=== PATIENT | female | born 1995 | race American Indian/Alaskan Native ===

== ENCOUNTER 2020-04-09 17:53 | Inpatient (IN) | payer MEDICAID, SELFPAY ==
[2020-04-09] MEDS ORDERED: cefTRIAXone/NS 2 GM/100 ML 2 GM/100 ML BAG IV SCH (18:12)
[2020-04-09] MEDS ORDERED: SODIUM CHLORIDE 0.9% 500 ML 500 ML IV ONE (18:12)
[2020-04-09 19:06] LABS: Basophils % (Auto) 0.3 % (0.0-1.8); Eosinophils % (Auto) 0.1 % (0.0-4.3); Hemoglobin 10.3 gm/dl (10.1-14.3); Lymphocytes % (Auto) 13.2 % (13.4-35.0); Mean Corpuscular HGB Conc 32 % (30-34); Mean Corpuscular Volume 81 fl (79-97); Monocytes # (Auto) 0.5 K/mm3 (0.0-0.8); Monocytes % (Auto) 5.9 % (0.0-7.3); Platelet Count 223 K/mm3 (140-440); Red Blood Count 3.95 M/mm3 (3.65-5.03); Red Cell Distribution Width 14.6 % (13.2-15.2)
[2020-04-09 19:09] LABS: Alanine Aminotransferase 15 units/L (7-56); Albumin 3.1 g/dL (3.9-5); Blood Urea Nitrogen 5 mg/dL (7-17); Calcium 8.6 mg/dL (8.4-10.2); Hemolysis Index 0
[2020-04-09 19:10] LABS: C-Reactive Protein 5.3 mg/dL (0.00-1.30)
[2020-04-09 19:17] LABS: BUN/Creatinine Ratio 8
--- NOTE | 2020-04-09 19:20 | XRay Report ---
CHEST 1 VIEW 6:32 PM INDICATION / CLINICAL INFORMATION: Cough and shortness of breath. COMPARISON: None available. FINDINGS: SUPPORT DEVICES: None. HEART / MEDIASTINUM: The heart size and pulmonary vasculature are normal. LUNGS / PLEURA: There is mild patchy parenchymal disease in the left perihilar region and both lower lung zones medially. No significant pleural effusion. No pneumothorax. ADDITIONAL FINDINGS: No significant additional findings. IMPRESSION: Bilateral bronchopneumonia, more likely related to bacterial causes or aspiration than at ypical causes. Signer Name: Raciel Bacon MD Signed: 04/09/2020 7:15 PM Workstation Name: [id number]
--- NOTE | 2020-04-09 20:32 | Emergency Department Report ---
- General Chief Complaint: Dyspnea/Respdistress Stated Complaint: SHORTNESS OF BREATH Time Seen by Provider: 04/09/20 18:04 Source: EMS Mode of arrival: Stretcher Limitations: Physical Limitation - History of Present Illness Initial Comments: Patient is a 25-year-old F Bangladeshi female who has a past medical history of asthma and is currently 33 weeks who is presenting with shortness of breath and cough. Patient states she has had cough that is productive of yellow sputum and shortness of breath especially with exertion. She has decreased sense of taste and smell and body aches as well. She denies nausea vomiting diarrhea. She is not sure she has been exposed to anyone who was tested positive for COVID-19. - Related Data Allergies Allergy/AdvReac Type Severity Reaction Status Date / Time No Known Allergies Allergy Verified 04/09/20 18:19 ED Review of Systems ROS: Stated complaint: SHORTNESS OF BREATH Other details as noted in HPI Comment: All other systems reviewed and negative ED Past Medical Hx - Social History Smoking Status: Never Smoker Substance Use Type: None ED Physical Exam - General Limitations: Physical Limitation General appearance: alert, in no apparent distress - Head Head exam: Present: atraumatic, normocephalic - Eye Eye exam: Present: normal appearance, PERRL, EOMI - ENT ENT exam: Present: mucous membranes moist - Neck Neck exam: Present: normal inspection - Respiratory Respiratory exam: Present: respiratory distress (resp ), rhonchi. Absent: normal lung sounds bilaterally, wheezes, rales - Cardiovascular Cardiovascular Exam: Present: regular rate, normal rhythm, normal heart sounds. Absent: systolic murmur, diastolic murmur, rubs, gallop - GI/Abdominal GI/Abdominal exam: Present: soft, normal bowel sounds. Absent: distended, tenderness, guarding, rebound - Extremities Exam Extremities exam: Present: normal inspection - Back Exam Back exam: Present: normal inspection - Neurological Exam Neurological exam: Present: alert, oriented X3 - Psychiatric Psychiatric exam: Present: normal affect, normal mood - Skin Skin exam: Present: warm, dry, intact, normal color. Absent: rash ED Course Vital Signs 04/09/20 04/09/20 04/09/20 18:15 18:24 18:45 Temperature 98.8 F Pulse Rate 112 H 99 H 131 H Respiratory 48 H 24 31 H Rate Blood Pressure 126/64 127/66 126/64 O2 Sat by Pulse 99 95 97 Oximetry 04/09/20 19:01 Temperature Pulse Rate 107 H Respiratory 23 Rate Blood Pressure 126/64 O2 Sat by Pulse 98 Oximetry ED Medical Decision Making - Lab Data Result diagrams: 04/09/20 18:23 04/09/20 18:23 - Radiology Data CHEST 1 VIEW 6:32 PM INDICATION / CLINICAL INFORMATION: Cough and shortness of breath. COMPARISON: None available. FINDINGS: SUPPORT DEVICES: None. HEART / MEDIASTINUM: The heart size and pulmonary vasculature are normal. LUNGS / PLEURA: There is mild patchy parenchymal disease in the left perihilar region and both lower lung zones medially. No significant pleural effusion. No pneumothorax. ADDITIONAL FINDINGS: No significant additional findings. IMPRESSION: Bilateral bronchopneumonia, more likely related to bacterial causes or aspiration than atypical causes. Signer Name: Raciel Bacon MD Signed: 04/09/2020 7:15 PM Workstation Name: [id number] - Medical Decision Making Patient is a 25-year-old F Bangladeshi female with asthma who is 33 weeks who has bilateral infiltrates. She received 2 neb treatments prior to arrival and is no longer wheezing but does have some rhonchi. Patient is remained on 2 L of oxygen and is maintaining O2 sats in the upper 90s. Patient was in the low 90s prior to the neb treatments and being started on oxygen. Patient will be [facility]. She goes to [facility]. Dr. Amador is on- call. Critical care attestation.: If time is entered above; I have spent that time in minutes in the direct care of this critically ill patient, excluding procedure time. ED Disposition Clinical Impression: Bilateral pneumonia, 33 weeks gestation of Disposition: OP ADMIT IP TO THIS HOSP Is pt being admited?: Yes Does the pt Need Aspirin: No Condition: Stable Instructions: Bacterial Pneumonia (ED) Time of Disposition: 20:36
[2020-04-09] MEDS ORDERED: SODIUM CHLORIDE NASAL SPRAY 44ML NS PRN (20:40)
[2020-04-09] MEDS ORDERED: ACETAMINOPHEN 325 MG TAB PO PRN (20:40)
[2020-04-09] MEDS ORDERED: ONDANSETRON 4 MG/2 ML INJ IV PRN (20:40)
[2020-04-09] MEDS ORDERED: DOCUSATE SODIUM 100 MG CAP PO PRN (20:40)
[2020-04-09] MEDS: cefTRIAXone/NS 2 GM/100 ML 2 GM/100 ML BAG IV SCH (21:15)
[2020-04-09] MEDS: AZITHROMYCIN 500 MG in SODIUM CHLORIDE 0.9% 250ML 250 ML IV SCH (23:19)
[2020-04-09] MEDS: LACTATED RINGERS 1,000 ML IV SCH (23:28)
--- NOTE | 2020-04-10 07:42 | History and Physical Report ---
History of Present Illness Date of examination: 04/10/20 Date of admission: 04/09/20 20:36 Chief complaint: cough, dyspnea, body aches, loss of smell for 2 days History of present illness: Pt is a 25 year old -[place] African female TRELL 05/20/20 at 34w2d pre sents with cough, loss of smell, body aches, and and shortness of breath for the past two days. She reports irregular contractions, and denies vaginal bleeding or leakage of fluid. She has had care at [facility] since 11 wks complicated by silent alpha thalassemia carrier status and asthma (reports no asthma attacks thus far this ). Her GBS status is unknown. Past History Past Medical History: asthma Past Surgical History: no surgical history Family/Genetic History: diabetes Social history: no significant social history - Obstetrical History Expected Date of Delivery: 05/20/20 Actual Gestation: 34 Week(s) 2 Day(s) : 3 Para: 1 Hx # Term Pregnancies: 1 Number of Pregnancies: 0 Spontaneous Abortions: 0 Induced : 1 Number of Living Children: 1 Medications and Allergies Allergies Allergy/AdvReac Type Severity Reaction Status Date / Time No Known Allergies Allergy Verified 04/09/20 18:19 Active Meds: Active Medications Acetaminophen (Tylenol) 650 mg PO Q4H PRN PRN Reason: Pain MILD(1-3)/Fever >100.5/FINK Docusate Sodium (Colace) 100 mg PO Q12H PRN PRN Reason: Constipation Guaifenesin (Guaifenesin Dm Syrup) 10 ml PO Q6H PRN PRN Reason: Cough Ceftriaxone Sodium (Rocephin/Ns 2 Gm/100 Ml) 2 gm in 100 mls @ 200 mls/hr IV Q24H [facility]; Protocol Last Admin: 04/09/20 21:15 Dose: 200 mls/hr Documented by: Lactated Ringer's (Lactated Ringers) 1,000 mls @ 125 mls/hr IV DIRECT [facility] Last Admin: 04/09/20 23:28 Dose: 125 mls/hr Documented by: Azithromycin 500 mg/ Sodium (Chloride) 250 mls @ 250 mls/hr IV Q24H [facility]; Protocol Last Admin: 04/09/20 23:19 Dose: 250 mls/hr Documented by: Multivitamins/Iron/Calcium ( Vitamin) 1 each PO QDAY MO Ondansetron HCl (Zofran) 4 mg IV Q6H PRN PRN Reason: Nausea And Vomiting Sodium Chloride (Deep Sea) 2 spray NS Q4H PRN PRN Reason: Congestion Review of Systems All systems: negative Constitutional: chills Cardiovascular: dyspnea on exertion Respiratory: cough - Vital Signs Vital signs: Vital Signs Pulse Resp BP Pulse Ox 112 H 48 H 126/64 99 04/09/20 18:15 04/09/20 18:15 04/09/20 18:15 04/09/20 18:15 Temp Pulse Resp BP Pulse Ox 98.4 F 97 H 38 H 124/56 96 04/10/20 02:30 04/10/20 07:39 04/09/20 22:22 04/09/20 22:22 04/10/20 07:39 - Physical Exam Breasts: Positive: deferred Lungs: Positive: Other (Coarse breath sounds in lung bases ) Abdomen: Positive: soft Uterus: Positive: enlarged (gravid ) Extremities: Positive: normal - Obstetrical FHR: auscultation normal Uterine Contraction Monitor Mode: External Uterine Contraction Pattern: Irregular Uterine Tone Measurement Phase: Resting Uterine Contraction Intensity: Mild Results Result Diagrams: 04/09/20 18:23 04/09/20 20:56 Abnormal lab results 04/09/20 04/09/20 04/09/20 Range/Units 18:23 18:23 18:23 MCH 26 L (28-32) pg Lymph % (Auto) 13.2 L (13.4-35.0) % Lymph # (Auto) 1.0 L (1.2-5.4) K/mm3 Seg Neutrophils % 80.5 H (40.0-70.0) % D-Dimer 896.32 H (0-234) ng/mlDDU Sodium 134 L (137-145) mmol/L Potassium 3.1 L (3.6-5.0) mmol/L Carbon Dioxide 17 L (22-30) mmol/L BUN 5 L (7-17) mg/dL Alkaline Phosphatase 180 H (35-129) units/L Lactate Dehydrogenase (91-180) units/L C-Reactive Protein (0.00-1.30) mg/dL Albumin 3.1 L (3.9-5) g/dL 04/09/20 04/09/20 04/09/20 Range/Units 18:23 20:56 20:56 MCH (28-32) pg Lymph % (Auto) (13.4-35.0) % Lymph # (Auto) (1.2-5.4) K/mm3 Seg Neutrophils % (40.0-70.0) % D-Dimer 792.89 H (0-234) ng/mlDDU Sodium (137-145) mmol/L Potassium (3.6-5.0) mmol/L Carbon Dioxide (22-30) mmol/L BUN (7-17) mg/dL Alkaline Phosphatase (35-129) units/L Lactate Dehydrogenase 244 H 224 H (91-180) units/L C-Reactive Protein 5.30 H 5.00 H (0.00-1.30) mg/dL Albumin (3.9-5) g/dL All other labs normal. Assessment and Plan A: IUP at 34w2d Bilateral low lobe pneumonia with anosmia- Suspected COVID 19 Asthma GBS unknown P: Admit to antepartum service Coronavirus test Supplemental oxygen to keep O2 sats above 95 percent ID consult Hospitalist consult
--- NOTE | 2020-04-10 08:15 | Event Note ---
Date: 04/10/20 Infectious Disease consult. On-call ID provider Dr Mercer recommends pulmonology consult and administration of Decadron and Remdesivir.
[2020-04-10] MEDS ORDERED: REMDESIVIR 200 MG in SODIUM CHLORIDE 0.9% 250ML 250 ML IV ONE (08:24)
[2020-04-10] MEDS ORDERED: REMDESIVIR 100 MG VIAL IV ONE (08:30)
[2020-04-10] MEDS ORDERED: dexAMETHasone 4 MG/ML VIAL IV ONE (08:59)
--- NOTE | 2020-04-10 09:38 | Ultrasound Report ---
ULTRASOUND OBSTETRIC LIMITED ULTRASOUND BIOPHYSICAL PROFILE INDICATION / CLINICAL INFORMATION: IUP at 33 wks, COVID PUI. COMPARISON: None available. FINDINGS: BREATHING MOVEMENT = 2 GROSS BODY MOVEMENT = 2 TONE = 2 QUALITATIVE AMNIOTIC FLUID VOLUME = 2 TOTAL BIOPHYSICAL SCORE = 8/8 AMNIOTIC FLUID INDEX (cm) = 12.9 HEART RATE (beats per minute): 159 ADDITIONAL FINDINGS: None. IMPRESSION: 1. Biophysical Score = 8/8 Signer Name: Dung Roach MD Signed: 04/10/2020 9:34 AM Workstation Name: [id number]
[2020-04-10] MEDS: PRENATAL VIT27-FE FUMARATE-FOLIC ACID VIT TAB PO SCH (09:53)
--- NOTE | 2020-04-10 10:20 | Consultation ---
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 We been consulted to assist in management as she is noted to be tachypneic requiring 7 L of oxygen. On arrival the patient reports shortness of breath worse with exertion. She is 3 para 10 and does not recall having this severe shortness of breath during her other pregnancies. During our conversation she is noted to have 98% saturation while off the oxygen as she states that the high flow is uncomfortable to put in. Her spouse was in the room states that she has not been able to keep any food down that she does not like the taste of food she denies any loss of sensation of taste or smell at this time. She was not clear if she has nasal congestion but states that the force of the oxygen was more of a problem. She denies any fever nausea vomiting or diarrhea except as is associated with her normal . Past History Past Medical History: other () Past Surgical History: No surgical history Social history: lives with family, full code. denies: IV drug use Family history: no significant family history Medications and Allergies Allergies Allergy/AdvReac Type Severity Reaction Status Date / Time No Known Allergies Allergy Verified 04/09/20 18:19 Active Meds: Active Medications Acetaminophen (Tylenol) 650 mg PO Q4H PRN PRN Reason: Pain MILD(1-3)/Fever >100.5/FINK Albuterol (Proair) 2 puff IH Q6HRT PRN PRN Reason: Shortness Of Breath Arformoterol Tartrate (Brovana Nebu) 15 mcg IH Q12HRT MO Budesonide (Pulmicort) 0.5 mg IH Q12HRT MO Docusate Sodium (Colace) 100 mg PO Q12H PRN PRN Reason: Constipation Guaifenesin (Guaifenesin Dm Syrup) 10 ml PO Q6H PRN PRN Reason: Cough Ceftriaxone Sodium (Rocephin/Ns 2 Gm/100 Ml) 2 gm in 100 mls @ 200 mls/hr IV Q24H [facility]; Protocol Last Admin: 04/09/20 21:15 Dose: 200 mls/hr Documented by: Lactated Ringer's (Lactated Ringers) 1,000 mls @ 125 mls/hr IV DIRECT [facility] Last Admin: 04/09/20 23:28 Dose: 125 mls/hr Documented by: Azithromycin 500 mg/ Sodium (Chloride) 250 mls @ 250 mls/hr IV Q24H [facility]; Protocol Last Admin: 04/09/20 23:19 Dose: 250 mls/hr Documented by: REMDESIVIR 100 mg/ Sodium (Chloride) 250 mls @ 500 mls/hr IV Q24HR@2100 MO Stop: 04/14/20 21:29 Multivitamins/Iron/Calcium ( Vitamin) 1 each PO QDAY [facility] Last Admin: 04/10/20 09:53 Dose: 1 each Documented by: Ondansetron HCl (Zofran) 4 mg IV Q6H PRN PRN Reason: Nausea And Vomiting Sodium Chloride (Deep Sea) 2 spray NS Q4H PRN PRN Reason: Congestion Sodium Chloride (Nacl 0.9%) 50 ml IV Q24HR@2100 MO Stop: 04/14/20 21:01 Review of Systems All systems: negative Constitutional: weight gain Ears, nose, mouth and throat: no ear pain, no tinnitis, no nose pain, no nasal congestion, no sinus pressure Cardiovascular: shortness of breath, no orthopnea, no rapid/irregular heart beat, no syncope Respiratory: shortness of breath, dyspnea on exertion Exam - Physical Exam Narrative exam: VITAL SIGNS: Reviewed. GENERAL: The patient appears normally developed, visually observed with no noted increased work of breathing able to speak complete sentences. All other exams deferred at this time due to global pandemic and patient is a PUI. And an effort to conserve PPE vital signs as documented. - Constitutional Vitals: Temp Pulse Resp BP Pulse Ox 98.7 F 116 H 38 H 115/66 100 04/10/20 08:00 04/10/20 10:16 04/09/20 22:22 04/10/20 09:59 04/10/20 10:16 Results - Labs CBC & Chem 7: 04/09/20 18:23 04/09/20 20:56 Labs: Abnormal lab results 12/08/2404/09/20 04/09/20 Range/Units 18:23 18:23 18:23 MCH 26 L (28-32) pg Lymph % (Auto) 13.2 L (13.4-35.0) % Lymph # (Auto) 1.0 L (1.2-5.4) K/mm3 Seg Neutrophils % 80.5 H (40.0-70.0) % D-Dimer 896.32 H (0-234) ng/mlDDU POC ABG pCO2 (32.0-48.0) mmHg POC ABG pO2 (83-108) mmHg ABG Hemoglobin (12.0-17.5) ABG Sodium (136.0-145.0) mmol/L ABG Potassium (3.40-4.50) mmol/L Sodium 134 L (137-145) mmol/L Potassium 3.1 L (3.6-5.0) mmol/L Carbon Dioxide 17 L (22-30) mmol/L BUN 5 L (7-17) mg/dL Alkaline Phosphatase 180 H (35-129) units/L Lactate Dehydrogenase (91-180) units/L C-Reactive Protein (0.00-1.30) mg/dL Albumin 3.1 L (3.9-5) g/dL Arterial Blood Ionized Calcium (4.6-5.3) mg/dL 04/09/20 04/09/20 04/09/20 Range/Units 18:23 20:56 20:56 MCH (28-32) pg Lymph % (Auto) (13.4-35.0) % Lymph # (Auto) (1.2-5.4) K/mm3 Seg Neutrophils % (40.0-70.0) % D-Dimer 792.89 H (0-234) ng/mlDDU POC ABG pCO2 (32.0-48.0) mmHg POC ABG pO2 (83-108) mmHg ABG Hemoglobin (12.0-17.5) ABG Sodium (136.0-145.0) mmol/L ABG Potassium (3.40-4.50) mmol/L Sodium (137-145) mmol/L Potassium (3.6-5.0) mmol/L Carbon Dioxide (22-30) mmol/L BUN (7-17) mg/dL Alkaline Phosphatase (35-129) units/L Lactate Dehydrogenase 244 H 224 H (91-180) units/L C-Reactive Protein 5.30 H 5.00 H (0.00-1.30) mg/dL Albumin (3.9-5) g/dL Arterial Blood Ionized Calcium (4.6-5.3) mg/dL 04/10/20 Range/Units 06:45 MCH (28-32) pg Lymph % (Auto) (13.4-35.0) % Lymph # (Auto) (1.2-5.4) K/mm3 Seg Neutrophils % (40.0-70.0) % D-Dimer (0-234) ng/mlDDU POC ABG pCO2 25.8 L (32.0-48.0) mmHg POC ABG pO2 72.1 L (83-108) mmHg ABG Hemoglobin 9.7 L (12.0-17.5) ABG Sodium 133.3 L (136.0-145.0) mmol/L ABG Potassium 2.4 L (3.40-4.50) mmol/L Sodium (137-145) mmol/L Potassium (3.6-5.0) mmol/L Carbon Dioxide (22-30) mmol/L BUN (7-17) mg/dL Alkaline Phosphatase (35-129) units/L Lactate Dehydrogenase (91-180) units/L C-Reactive Protein (0.00-1.30) mg/dL Albumin (3.9-5) g/dL Arterial Blood Ionized Calcium 4.5 L (4.6-5.3) mg/dL Assessment and Plan Patient is a 25-year-old female with past medical history of asthma and thalassemia currently 34 weeks presenting to the hospital with co mplaint of dyspnea shortness of breath 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 We been consulted to assist in management as she is noted to be tachypneic requiring 7 L of oxygen. On arrival the patient reports shortness of breath worse with exertion. She is 3 para 10 and does not recall having this severe shortness of breath during her other pregnancies. During our conversation she is noted to have 98% saturation while off the oxygen as she states that the high flow is uncomfortable to put in. Her spouse was in the room states that she has not been able to keep any food down that she does not like the taste of food she denies any loss of sensation of taste or smell at this time. She was not clear if she has nasal congestion but states that the force of the oxygen was more of a problem. She denies any fever nausea vomiting or diarrhea except as is associated with her normal . Chest x-ray concerning for bilateral infiltrates in the bases Acute shortness of breath without hypoxia Upper respiratory patient's infectious with bilateral infiltrates in the chest concerning for pneumonia Rule out sepsis Systemic inflammatory response syndrome without organ dysfunction Patient under suspicion for COVID-19 at 34 weeks Plan Continue supportive care oxygen as tolerated for work of breathing Monitor saturation closely and if desaturation or increased work of breathing need to alert on any hospitalization Continue with steroids Patient discussed with home hospice aide and agree with recommendation guarded prognosis he has already spoken with the OB physician over the phone due to current bed status and if patient test positive for Covid will likely need to be transferred to tertiary institution where ECMO can be administered. Check inflammatory markers while awaiting COVID-19 testing and serology Infectious disease consulted will await their input DVT and GI prophylaxis Thank you for allowing us take part in the care of your patient as my physician to call available more therapeutic or diagnostic measures may need to be presented.
[2020-04-10] MEDS ORDERED: SODIUM CHLORIDE 0.9% 100 ML ONE (10:56)
--- NOTE | 2020-04-10 11:25 | Consultation ---
History of Present Illness Consult date: 04/10/20 Requesting physician: ERIKA NULL Reason for consult: dyspnea, asthma History of present illness: 25 y/o admitted with dyspnea on exertion and tachypnea. Patient is currently 34 weeks . Alerted by OB attending as patient was on 7 liters NC this am and still tachypnic. Concern was that she needed to be transferred to IMCU vs ICU and also concern for COVID. That test is pending. All inflammatory markers are elevated. CXR shows cardiomegaly with some patchy lower lobe infiltrate. No CTA done as patient has a gravid uterus. ID consulted and recommended steroids and remedsivir. Pulmonary consulted now. Per patient has asthma but no prior flares during this . Remainder is negative. She is not on any maintenance therapy for her asthma. Past History Past Medical History: other (asthma) Social history: no significant social history Medications and Allergies Allergies Allergy/AdvReac Type Severity Reaction Status Date / Time No Known Allergies Allergy Verified 04/09/20 18:19 Active Meds: Active Medications Acetaminophen (Tylenol) 650 mg PO Q4H PRN PRN Reason: Pain MILD(1-3)/Fever >100.5/FINK Albuterol (Proair) 2 puff IH Q6HRT PRN PRN Reason: Shortness Of Breath Arformoterol Tartrate (Brovana Nebu) 15 mcg IH Q12HRT MO Budesonide (Pulmicort) 0.5 mg IH Q12HRT MO Dexamethasone (Decadron) 6 mg IV Q12HR MO Stop: 04/11/20 22:01 Docusate Sodium (Colace) 100 mg PO Q12H PRN PRN Reason: Constipation Guaifenesin (Guaifenesin Dm Syrup) 10 ml PO Q6H PRN PRN Reason: Cough Ceftriaxone Sodium (Rocephin/Ns 2 Gm/100 Ml) 2 gm in 100 mls @ 200 mls/hr IV Q24H [facility]; Protocol Last Admin: 04/09/20 21:15 Dose: 200 mls/hr Documented by: Lactated Ringer's (Lactated Ringers) 1,000 mls @ 125 mls/hr IV DIRECT [facility] Last Admin: 04/09/20 23:28 Dose: 125 mls/hr Documented by: Azithromycin 500 mg/ Sodium (Chloride) 250 mls @ 250 mls/hr IV Q24H [facility]; Protocol Last Admin: 04/09/20 23:19 Dose: 250 mls/hr Documented by: REMDESIVIR 100 mg/ Sodium (Chloride) 250 mls @ 500 mls/hr IV Q24HR@2100 [facility] Stop: 04/14/20 21:29 Multivitamins/Iron/Calcium ( Vitamin) 1 each PO QDAY [facility] Last Admin: 04/10/20 09:53 Dose: 1 each Documented by: Ondansetron HCl (Zofran) 4 mg IV Q6H PRN PRN Reason: Nausea And Vomiting Sodium Chloride (Deep Sea) 2 spray NS Q4H PRN PRN Reason: Congestion Sodium Chloride (Nacl 0.9%) 50 ml IV Q24HR@2100 MO Stop: 04/14/20 21:01 Physical Examination Vital signs: Vital Signs Pulse Resp BP Pulse Ox 112 H 48 H 126/64 99 04/09/20 18:15 04/09/20 18:15 04/09/20 18:15 04/09/20 18:15 Patient is not examined in person to preserve PPE during the global pandemic of COVID 19. She is a PUI and her test is still pending. Results - Laboratory Findings CBC and BMP: 04/09/20 18:23 04/09/20 20:56 ABG ABG pH 7.38 (7.320-7.450) 04/10/20 06:45 POC ABG pCO2 25.8 mmHg (32.0-48.0) L 04/10/20 06:45 POC ABG pO2 72.1 mmHg (83-108) L 04/10/20 06:45 POC ABG HCO3 15.0 04/10/20 06:45 PT/INR, D-dimer D-Dimer 792.89 ng/mlDDU (0-234) H 04/09/20 20:56 Abnormal lab findings: Abnormal Labs 04/09/20 04/09/20 04/09/20 18:23 18:23 18:23 MCH 26 L Lymph % (Auto) 13.2 L Lymph # (Auto) 1.0 L Seg Neutrophils % 80.5 H D-Dimer 896.32 H POC ABG pCO2 POC ABG pO2 ABG Hemoglobin ABG Sodium ABG Potassium Sodium 134 L Potassium 3.1 L Carbon Dioxide 17 L BUN 5 L Alkaline Phosphatase 180 H Lactate Dehydrogenase C-Reactive Protein Albumin 3.1 L Arterial Blood Ionized Calcium 04/09/20 04/09/20 04/09/20 18:23 20:56 20:56 MCH Lymph % (Auto) Lymph # (Auto) Seg Neutrophils % D-Dimer 792.89 H POC ABG pCO2 POC ABG pO2 ABG Hemoglobin ABG Sodium ABG Potassium Sodium Potassium Carbon Dioxide BUN Alkaline Phosphatase Lactate Dehydrogenase 244 H 224 H C-Reactive Protein 5.30 H 5.00 H Albumin Arterial Blood Ionized Calcium 04/10/20 06:45 MCH Lymph % (Auto) Lymph # (Auto) Seg Neutrophils % D-Dimer POC ABG pCO2 25.8 L POC ABG pO2 72.1 L ABG Hemoglobin 9.7 L ABG Sodium 133.3 L ABG Potassium 2.4 L Sodium Potassium Carbon Dioxide BUN Alkaline Phosphatase Lactate Dehydrogenase C-Reactive Protein Albumin Arterial Blood Ionized Calcium 4.5 L - Diagnostic Findings Chest x-ray: image reviewed (ast stated in HPI) Assessment and Plan 25 y/o female, 34wks admitted with dyspnea on exertion and tachypnea with abnormal CXR, concern for COVID 19 pneumonia. 1. Agree with COVID 19 rule out 2. Would start patient on inhaled steroid therapy as well as inhaled long acting beta agonist. Spoke with RT for NICU who is covering the mother baby floor as well. Patient was actually satting 93% on room air but was just very t achypnic. They suggest Vapotherm to help with her work of breathing which I do not disagree with. Please keep in mind this was changed not secondary to desaturation but to improve work of breathing. 3. Agree with IV steroids. Assuming the increased dosage is secondary to 4. Please limit IVF's, we like to run these patients on the dry side as increased or execessive volume could worsen hypoxemia 5. likely not able to prone 6. Guarded prognosis. Spoke with OB attending over the phone, current bed status in IMCU and ICU is not good. Unable to take patient to either unit right now secondary to staffing. If she becomes acutely ill and requires more oxygen then will need transfer to another facility unless our staffing can be improved. Guarded prognosis.
[2020-04-10] MEDS: ALBUTEROL 8.5 GM MDI INHALATION IH PRN (13:16)
[2020-04-10] MEDS: BUDESONIDE 0.5 MG/2 ML NEBU IH SCH ×2 (13:18→19:47)
[2020-04-10] MEDS: ARFORMOTEROL 15 MCG/2 ML NEBU IH SCH ×2 (13:18→19:47)
--- NOTE | 2020-04-10 20:33 | Consultation ---
History of Present Illness - Reason for Consult Consult date: 04/10/20 COVID and Requesting physician: TONEY NULL - History of Present Illness 25 years old female with history of asthma, thalassemia carrier currently with 34 weeks of admitted on 04/09/2020 secondary to a week history of generalized malaise, body aches, cough and shortness of breath as well as 2 days of irregular contractions. Patient receives care. Denies nausea, vomiting, diarrhea, vaginal bleeding or discharge. On arrival, temperature 98.8, HR 112, RR 28, O2 sat 99%, BP 126/64. Initial PCO2 72. D-dimer 886. Ferritin 42. CRP 5.3. Procalcitonin 0.4. Chest x-ray with bilateral bronchopneumonia. Initial O2 sat drops to 89 percent. Patient currently on high flow 40%. Review of Systems: positive in bold print General: fever, chills, malaise Cutaneous: rash, pruritus Head: headaches or injury Eyes: changes in vision, eye pain, double vision Ears: ear pain, ear discharge, ringing or hearing loss Nose: nose bleeding, stuffiness Mouth & throat: bleeding gums, horseness, no dental problems, or swollen glands Neck: no pain, node enlargement/lumps, tyroid enlargement or tenderness Respiratory: SOB, cough, YUNG, wheezing, sputum, hemoptysis, pleuritic chest pain Cardiovascular: chest pain, leg edema, cyanosis, YUNG, orthopnea Musculoskeletal: edema, deformities, pain Gastrointestinal: nausea, vomiting, hematemesis, diarrhea, constipation, melena, bright red blood in stools, fecal incontinence, jaundice Genitourinary/Reproductive: frequent urination, dysuria, hematuria, incontinence Neurogical: seizures, headaches, weakness, paresthesias, loss of speech or vision; memory loss, vertigo, tremors, numbness Psychiatric: stable mood; excessive anxiety, sadness or moodiness Past History Past Medical History: other (asthma) Social history: no significant social history Medications and Allergies Allergies Allergy/AdvReac Type Severity Reaction Status Date / Time No Known Allergies Allergy Verified 04/09/20 18:19 Active Meds: Active Medications Acetaminophen (Tylenol) 650 mg PO Q4H PRN PRN Reason: Pain MILD(1-3)/Fever >100.5/FINK Albuterol (Proair) 2 puff IH Q6HRT PRN PRN Reason: Shortness Of Breath Last Admin: 04/10/20 13:16 Dose: 2 puff Documented by: Arformoterol Tartrate (Brovana Nebu) 15 mcg IH Q12HRT [facility] Last Admin: 04/10/20 19:47 Dose: 15 mcg Documented by: Budesonide (Pulmicort) 0.5 mg IH Q12HRT [facility] Last Admin: 04/10/20 19:47 Dose: 0.5 mg Documented by: Dexamethasone (Decadron) 6 mg IV Q12HR [facility] Stop: 04/11/20 22:01 Docusate Sodium (Colace) 100 mg PO Q12H PRN PRN Reason: Constipation Guaifenesin (Guaifenesin Dm Syrup) 10 ml PO Q6H PRN PRN Reason: Cough Ceftriaxone Sodium (Rocephin/Ns 2 Gm/100 Ml) 2 gm in 100 mls @ 200 mls/hr IV Q24H [facility]; Protocol Last Admin: 04/09/20 21:15 Dose: 200 mls/hr Documented by: Lactated Ringer's (Lactated Ringers) 1,000 mls @ 125 mls/hr IV DIRECT [facility] Last Admin: 04/09/20 23:28 Dose: 125 mls/hr Documented by: Azithromycin 500 mg/ Sodium (Chloride) 250 mls @ 250 mls/hr IV Q24H [facility]; Protocol Last Admin: 04/09/20 23:19 Dose: 250 mls/hr Documented by: REMDESIVIR 100 mg/ Sodium (Chloride) 250 mls @ 500 mls/hr IV Q24HR@2100 [facility] Stop: 04/14/20 21:29 Multivitamins/Iron/Calcium ( Vitamin) 1 each PO QDAY [facility] Last Admin: 04/10/20 09:53 Dose: 1 each Documented by: Ondansetron HCl (Zofran) 4 mg IV Q6H PRN PRN Reason: Nausea And Vomiting Sodium Chloride (Deep Sea) 2 spray NS Q4H PRN PRN Reason: Congestion Sodium Chloride (Nacl 0.9%) 50 ml IV Q24HR@2100 [facility] Stop: 04/14/20 21:01 Physical Examination - Physical Exam Narrative exam: General appearance: Alert in NAD pleasant on high flow nasal cannula Eyes: anicteric sclerae, moist conjunctivae; no lid-lag; PERRLA HENT: Normocephalic, Atraumatic; normal external ears, nares open, oropharynx clear with moist mucous membranes and no oral thrush; normal hard and soft palate. Neck: supple, tracheal midline, no JVD Lungs: Bilateral diminished breath sounds CV: RRR no murmur Abdomen: Soft, uterus Extremities: no edema, no cyanosis Skin: No rash. Psych: no agitated Neuro: alert and oriented x 3. Moving all extermities - Constitutional Vitals: Vital Signs Temp Pulse Resp BP Pulse Ox 97.6 F 107 H 36 H 108/56 96 04/10/20 18:50 04/10/20 20:26 04/10/20 19:48 04/10/20 20:03 04/10/20 20:26 Temperature -Last 24 Hours Temperature 97.6 F Temperature 97.8 F Temperature 98.3 F Temperature 98.3 F Temperature 98.7 F Temperature 98.4 F Temperature 99.3 F Results - Labs CBC & Chem 7: 04/09/20 18:23 04/09/20 20:56 Labs: Abnormal lab results 04/09/20 04/09/20 04/10/20 Range/Units 20:56 20:56 06:45 D-Dimer 792.89 H (0-234) ng/mlDDU POC ABG pCO2 25.8 L (32.0-48.0) mmHg POC ABG pO2 72.1 L (83-108) mmHg ABG Hemoglobin 9.7 L (12.0-17.5) ABG Sodium 133.3 L (136.0-145.0) mmol/L ABG Potassium 2.4 L (3.40-4.50) mmol/L Lactate Dehydrogenase 224 H (91-180) units/L C-Reactive Protein 5.00 H (0.00-1.30) mg/dL Arterial Blood Ionized Calcium 4.5 L (4.6-5.3) mg/dL Assessment and Plan Cultures: Blood culture 04/09/2020 no growth today SARS CoV2 PCR pending SARS CoV2 IgG negative Assessment: 25 years old female with history of asthma, thalassemia carrier currently with 34 weeks of admitted on 04/09/2020 secondary to a week history of generalized malaise, body aches, cough and shortness of breath as well as 2 days of irregular contractions: #Severe sepsis: With tachycardia, tachypnea, hypoxia likely due to bilateral pneumonia. #Presumed Severe COVID pneumonia: Chest x-ray with bilateral multifocal pneumonia. Inflammatory markers elevated. Ferritin normal. Procalcitonin 0.4. ? Slightly up will consider a bacterial component. #Acute hypoxemic respiratory failure: Initial O2 sat dropped to 89%. Currently on high flow severe oxygen 40%. #: 34 weeks. Recommendations: - Start Dexamethasone 6 mg IV/PO daily for 10 days however can go up to 10 mg twice daily - Start Remdesivir x 5 days -SARS-CoV-2 PCR pending, usually will start remdesivir after confirmation of COVID-19, unfortunately patient is hypoxic and - SARS-CoV-2 IgG negative, patient may benefit from Covid convalescent plasma if hypoxia does not get better - Monitor inflammatory markers - ferritin, Ddimer, CRP, LDH every 48 hours - Continue ceftriaxone for 5 days and azithromycin for 3 days - Monitor liver function test on Remdesivir - Continue anticoagulation per System Protocol - Prone positioning as possible - Pulmonary on board - Close monitoring - Check urinalysis All laboratory, cultures and imaging were reviewed. Discussed with attending. Patient is at risk of deterioration, consider transferring to tertiary facility with ECMO if clinical decompensation Will follow Charlee Ruth MD Infectious Diseases Customer Marketing Assistant [facility] M [phone] O [phone]
[2020-04-10] MEDS: cefTRIAXone/NS 2 GM/100 ML 2 GM/100 ML BAG IV SCH (20:59)
[2020-04-10] MEDS ORDERED: SODIUM CHLORIDE 0.9% 50 ML IVPB IV SCH (21:00)
[2020-04-10] MEDS: dexAMETHasone 4 MG/ML VIAL IV SCH (22:00)
[2020-04-10] MEDS: AZITHROMYCIN 500 MG in SODIUM CHLORIDE 0.9% 250ML 250 ML IV SCH (23:35)
[2020-04-10] MEDS: LACTATED RINGERS 1,000 ML IV SCH (23:46)
--- NOTE | 2020-04-11 08:10 | Progress Note ---
Assessment and Plan A: IUP at 34w3d Bilateral low lobe pneumonia with anosmia- Suspected COVID 19 currently on high-flow nasal cannula; ID, Pulmonology and Hospitalists following and appreciated Asthma GBS unknown P: Continue supportive care Coronavirus test pending Repeat inflammatory markers Subjective - Subjective Date of service: 04/11/20 Principal diagnosis: Suspected COVID-19, Bilateral Pneumonia, IUP at 34 wks Interval history: Pt reports she is feeling "good" this morning. She reports that she was able to sleep most of the night. She denies any complaints presently. She denies vaginal bleeding, leakage of fluid. She does report irregular contractions. Consult notes reviewed and much appreciated. Patient reports: no new complaints Objective - Vital Signs Vital Signs: Vital Signs - 12hr 04/10/20 04/10/20 04/10/20 20:11 20:16 20:21 Temperature Pulse Rate 109 H 110 H 101 H Respiratory Rate Blood Pressure Blood Pressure [Right] O2 Sat by Pulse 94 96 95 Oximetry 04/10/20 04/10/20 04/10/20 20:25 20:26 20:31 Temperature Pulse Rate 108 H 107 H 101 H Respiratory Rate Blood Pressure Blood Pressure [Right] O2 Sat by Pulse 94 96 96 Oximetry 04/10/20 04/10/20 04/10/20 20:34 20:36 20:41 Temperature Pulse Rate 114 H 96 H 98 H Respiratory Rate Blood Pressure 124/70 Blood Pressure [Right] O2 Sat by Pulse 97 97 Oximetry 04/10/20 04/10/20 04/10/20 20:46 20:51 20:56 Temperature Pulse Rate 105 H 99 H 103 H Respiratory Rate Blood Pressure Blood Pressure [Right] O2 Sat by Pulse 96 96 96 Oximetry 04/10/20 04/10/20 04/10/20 21:00 21:01 21:06 Temperature 98.4 F Pulse Rate 98 H 100 H Respiratory 42 H 45 H Rate Blood Pressure Blood Pressure 124/70 [Right] O2 Sat by Pulse 98 98 98 Oximetry 04/10/20 04/10/20 04/10/20 21:09 21:11 21:16 Temperature Pulse Rate 95 H 93 H 96 H Respiratory Rate Blood Pressure Blood Pressure [Right] O2 Sat by Pulse 87 96 98 Oximetry 04/10/20 04/10/20 04/10/20 21:21 21:26 21:31 Temperature Pulse Rate 102 H 100 H 101 H Respiratory Rate Blood Pressure Blood Pressure [Right] O2 Sat by Pulse 96 97 98 Oximetry 04/10/20 04/10/20 04/10/20 21:33 21:36 21:41 Temperature Pulse Rate 100 H 92 H 96 H Respiratory Rate Blood Pressure 116/67 Blood Pressure [Right] O2 Sat by Pulse 98 98 Oximetry 04/10/20 04/10/20 04/10/20 21:46 21:51 21:56 Temperature Pulse Rate 94 H 99 H 96 H Respiratory Rate Blood Pressure Blood Pressure [Right] O2 Sat by Pulse 98 98 98 Oximetry 04/10/20 04/10/20 04/10/20 22:01 22:06 22:11 Temperature Pulse Rate 105 H 98 H 99 H Respiratory Rate Blood Pressure Blood Pressure [Right] O2 Sat by Pulse 98 98 99 Oximetry 04/10/20 04/10/20 04/10/20 22:15 22:16 22:21 Temperature Pulse Rate 105 H 103 H 100 H Respiratory Rate Blood Pressure Blood Pressure [Right] O2 Sat by Pulse 91 98 99 Oximetry 04/10/20 04/10/20 04/10/20 22:26 22:31 22:33 Temperature Pulse Rate 97 H 100 H 100 H Respiratory Rate Blood Pressure 116/62 Blood Pressure [Right] O2 Sat by Pulse 91 99 Oximetry 04/10/20 04/10/20 04/10/20 22:36 22:41 22:46 Temperature Pulse Rate 99 H 102 H 96 H Respiratory Rate Blood Pressure Blood Pressure [Right] O2 Sat by Pulse 98 98 97 Oximetry 04/10/20 04/10/20 04/10/20 22:51 22:56 23:01 Temperature Pulse Rate 99 H 97 H 101 H Respiratory Rate Blood Pressure Blood Pressure [Right] O2 Sat by Pulse 97 96 97 Oximetry 04/10/20 04/10/20 04/10/20 23:06 23:11 23:16 Temperature Pulse Rate 103 H 91 H 96 H Respiratory Rate Blood Pressure Blood Pressure [Right] O2 Sat by Pulse 97 96 98 Oximetry 04/10/20 04/10/20 04/10/20 23:21 23:26 23:31 Temperature Pulse Rate 104 H 100 H 99 H Respiratory Rate Blood Pressure Blood Pressure [Right] O2 Sat by Pulse 98 98 98 Oximetry 04/10/20 04/10/20 04/10/20 23:33 23:36 23:41 Temperature Pulse Rate 97 H 98 H 101 H Respiratory Rate Blood Pressure 100/56 Blood Pressure [Right] O2 Sat by Pulse 97 96 Oximetry 04/10/20 04/10/20 04/10/20 23:46 23:47 23:51 Temperature 98.6 F Pulse Rate 101 H 99 H 101 H Respiratory 46 H Rate Blood Pressure Blood Pressure 100/56 [Right] O2 Sat by Pulse 96 95 95 Oximetry 04/10/20 04/10/20 04/11/20 23:53 23:56 00:01 Temperature Pulse Rate 103 H 102 H 99 H Respiratory Rate Blood Pressure Blood Pressure [Right] O2 Sat by Pulse 94 95 97 Oximetry 04/11/20 04/11/20 04/11/20 00:06 00:11 00:16 Temperature Pulse Rate 97 H 102 H 93 H Respiratory Rate Blood Pressure Blood Pressure [Right] O2 Sat by Pulse 97 97 95 Oximetry 04/11/20 04/11/20 04/11/20 00:21 00:26 00:31 Temperature Pulse Rate 98 H 95 H 96 H Respiratory Rate Blood Pressure Blood Pressure [Right] O2 Sat by Pulse 94 95 94 Oximetry 04/11/20 04/11/20 04/11/20 00:33 00:36 00:41 Temperature Pulse Rate 103 H 91 H 92 H Respiratory Rate Blood Pressure 114/61 Blood Pressure [Right] O2 Sat by Pulse 96 97 Oximetry 04/11/20 04/11/20 04/11/20 00:46 00:51 00:56 Temperature Pulse Rate 91 H 94 H 92 H Respiratory Rate Blood Pressure Blood Pressure [Right] O2 Sat by Pulse 96 96 97 Oximetry 04/11/20 04/11/20 04/11/20 01:01 01:06 01:11 Temperature Pulse Rate 92 H 93 H 93 H Respiratory Rate Blood Pressure Blood Pressure [Right] O2 Sat by Pulse 95 96 96 Oximetry 04/11/20 04/11/20 04/11/20 01:16 01:21 01:26 Temperature Pulse Rate 95 H 95 H 93 H Respiratory Rate Blood Pressure Blood Pressure [Right] O2 Sat by Pulse 96 96 96 Oximetry 04/11/20 04/11/20 04/11/20 01:31 01:33 01:36 Temperature Pulse Rate 95 H 92 H 93 H Respiratory Rate Blood Pressure 106/58 Blood Pressure [Right] O2 Sat by Pulse 96 96 Oximetry 04/11/20 04/11/20 04/11/20 01:41 01:46 01:51 Temperature Pulse Rate 92 H 94 H 91 H Respiratory Rate Blood Pressure Blood Pressure [Right] O2 Sat by Pulse 97 97 97 Oximetry 04/11/20 04/11/20 04/11/20 01:56 02:00 02:01 Temperature Pulse Rate 92 H 93 H Respiratory Rate Blood Pressure Blood Pressure [Right] O2 Sat by Pulse 97 97 97 Oximetry 04/11/20 04/11/20 04/11/20 02:06 02:11 02:16 Temperature Pulse Rate 99 H 88 91 H Respiratory Rate Blood Pressure Blood Pressure [Right] O2 Sat by Pulse 97 97 97 Oximetry 04/11/20 04/11/20 04/11/20 02:21 02:26 02:31 Temperature Pulse Rate 89 90 91 H Respiratory Rate Blood Pressure Blood Pressure [Right] O2 Sat by Pulse 97 97 97 Oximetry 04/11/20 04/11/20 04/11/20 02:33 02:36 02:41 Temperature Pulse Rate 96 H 88 91 H Respiratory Rate Blood Pressure 107/59 Blood Pressure [Right] O2 Sat by Pulse 97 97 Oximetry 04/11/20 04/11/20 04/11/20 02:46 02:51 02:56 Temperature Pulse Rate 84 86 89 Respiratory Rate Blood Pressure Blood Pressure [Right] O2 Sat by Pulse 97 97 97 Oximetry 04/11/20 04/11/20 04/11/20 03:01 03:06 03:11 Temperature Pulse Rate 87 86 89 Respiratory Rate Blood Pressure Blood Pressure [Right] O2 Sat by Pulse 97 97 97 Oximetry 04/11/20 04/11/20 04/11/20 03:16 03:21 03:26 Temperature Pulse Rate 89 83 87 Respiratory Rate Blood Pressure Blood Pressure [Right] O2 Sat by Pulse 97 97 97 Oximetry 04/11/20 04/11/20 04/11/20 03:31 03:33 03:36 Temperature Pulse Rate 87 85 81 Respiratory Rate Blood Pressure 104/59 Blood Pressure [Right] O2 Sat by Pulse 97 97 Oximetry 04/11/20 04/11/20 04/11/20 03:41 03:46 03:51 Temperature Pulse Rate 90 89 86 Respiratory Rate Blood Pressure Blood Pressure [Right] O2 Sat by Pulse 97 97 98 Oximetry 04/11/20 04/11/20 04/11/20 03:56 04:00 04:01 Temperature 97.7 F Pulse Rate 81 87 Respiratory 36 H Rate Blood Pressure Blood Pressure [Right] O2 Sat by Pulse 97 97 Oximetry 04/11/20 04/11/20 04/11/20 04:06 04:11 04:16 Temperature Pulse Rate 87 90 92 H Respiratory Rate Blood Pressure Blood Pressure [Right] O2 Sat by Pulse 95 96 97 Oximetry 04/11/20 04/11/20 04/11/20 04:21 04:26 04:31 Temperature Pulse Rate 114 H 94 H 103 H Respiratory Rate Blood Pressure Blood Pressure [Right] O2 Sat by Pulse 98 95 97 Oximetry 04/11/20 04/11/20 04/11/20 04:33 04:36 04:41 Temperature Pulse Rate 96 H 100 H 96 H Respiratory Rate Blood Pressure 104/61 Blood Pressure [Right] O2 Sat by Pulse 96 99 Oximetry 04/11/20 04/11/20 04/11/20 04:43 04:46 04:51 Temperature Pulse Rate 107 H 94 H 97 H Respiratory Rate Blood Pressure Blood Pressure [Right] O2 Sat by Pulse 85 96 95 Oximetry 04/11/20 04/11/20 04/11/20 04:56 05:01 05:06 Temperature Pulse Rate 103 H 101 H 91 H Respiratory Rate Blood Pressure Blood Pressure [Right] O2 Sat by Pulse 96 87 98 Oximetry 04/11/20 04/11/20 04/11/20 05:11 05:16 05:21 Temperature Pulse Rate 100 H 88 91 H Respiratory Rate Blood Pressure Blood Pressure [Right] O2 Sat by Pulse 98 98 99 Oximetry 04/11/20 04/11/20 04/11/20 05:26 05:31 05:33 Temperature Pulse Rate 87 89 88 Respiratory Rate Blood Pressure 100/56 Blood Pressure [Right] O2 Sat by Pulse 98 99 Oximetry 04/11/20 04/11/20 04/11/20 05:36 05:41 05:46 Temperature Pulse Rate 88 87 90 Respiratory Rate Blood Pressure Blood Pressure [Right] O2 Sat by Pulse 98 98 98 Oximetry 04/11/20 04/11/20 04/11/20 05:51 05:56 06:01 Temperature Pulse Rate 85 93 H 83 Respiratory Rate Blood Pressure Blood Pressure [Right] O2 Sat by Pulse 98 99 99 Oximetry 04/11/20 04/11/20 04/11/20 06:06 06:11 06:22 Temperature Pulse Rate 82 86 109 H Respiratory Rate Blood Pressure Blood Pressure [Right] O2 Sat by Pulse 98 99 92 Oximetry 04/11/20 04/11/20 04/11/20 06:27 06:32 06:37 Temperature Pulse Rate 97 H 92 H 96 H Respiratory Rate Blood Pressure Blood Pressure [Right] O2 Sat by Pulse 93 94 94 Oximetry 04/11/20 04/11/20 04/11/20 06:42 06:47 06:52 Temperature Pulse Rate 98 H 89 89 Respiratory Rate Blood Pressure Blood Pressure [Right] O2 Sat by Pulse 95 96 96 Oximetry 04/11/20 04/11/20 04/11/20 06:57 07:02 07:07 Temperature Pulse Rate 94 H 86 88 Respiratory Rate Blood Pressure Blood Pressure [Right] O2 Sat by Pulse 95 95 97 Oximetry 04/11/20 04/11/20 04/11/20 07:12 07:17 07:22 Temperature Pulse Rate 95 H 93 H 85 Respiratory Rate Blood Pressure Blood Pressure [Right] O2 Sat by Pulse 96 96 96 Oximetry 04/11/20 04/11/20 04/11/20 07:27 07:32 07:37 Temperature Pulse Rate 87 84 90 Respiratory Rate Blood Pressure Blood Pressure [Right] O2 Sat by Pulse 97 97 97 Oximetry 04/11/20 04/11/20 04/11/20 07:42 07:47 07:52 Temperature Pulse Rate 87 84 87 Respiratory Rate Blood Pressure Blood Pressure [Right] O2 Sat by Pulse 98 99 99 Oximetry 04/11/20 04/11/20 04/11/20 07:57 08:02 08:07 Temperature Pulse Rate 90 89 90 Respiratory Rate Blood Pressure Blood Pressure [Right] O2 Sat by Pulse 99 98 98 Oximetry - Exam Breasts: deferred Lungs: Other (shallow breaths, improved from yesterday however ) Abdomen: Present: soft Uterus: Present: normal (gravid ) FHR: auscultation normal Uterine Contraction Monitor Mode: External Uterine Contraction Pattern: Irregular Uterine Tone Measurement Phase: Resting Uterine Contraction Intensity: Mild Extremities: normal - Labs Labs: Abnormal Labs 04/09/20 04/09/20 04/09/20 18:23 18:23 18:23 MCH 26 L Lymph % (Auto) 13.2 L Lymph # (Auto) 1.0 L Seg Neutrophils % 80.5 H D-Dimer 896.32 H POC ABG pCO2 POC ABG pO2 ABG Hemoglobin ABG Sodium ABG Potassium Sodium 134 L Potassium 3.1 L Carbon Dioxide 17 L BUN 5 L Alkaline Phosphatase 180 H Lactate Dehydrogenase C-Reactive Protein Albumin 3.1 L Arterial Blood Ionized Calcium 04/09/20 04/09/20 04/09/20 18:23 20:56 20:56 MCH Lymph % (Auto) Lymph # (Auto) Seg Neutrophils % D-Dimer 792.89 H POC ABG pCO2 POC ABG pO2 ABG Hemoglobin ABG Sodium ABG Potassium Sodium Potassium Carbon Dioxide BUN Alkaline Phosphatase Lactate Dehydrogenase 244 H 224 H C-Reactive Protein 5.30 H 5.00 H Albumin Arterial Blood Ionized Calcium 04/10/20 06:45 MCH Lymph % (Auto) Lymph # (Auto) Seg Neutrophils % D-Dimer POC ABG pCO2 25.8 L POC ABG pO2 72.1 L ABG Hemoglobin 9.7 L ABG Sodium 133.3 L ABG Potassium 2.4 L Sodium Potassium Carbon Dioxide BUN Alkaline Phosphatase Lactate Dehydrogenase C-Reactive Protein Albumin Arterial Blood Ionized Calcium 4.5 L Laboratory Results - last 24 hr 04/09/20 04/10/20 18:23 10:25 Procalcitonin 0.46 SARS-CoV-2 IgG Ab Nonreactive - Allied health notes Allied health notes reviewed: RT - Results US- obstetric: report reviewed
--- NOTE | 2020-04-11 08:32 | Progress Note ---
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 We been consulted to assist in management as she is noted to be tachypneic requiring 7 L of oxygen. On arrival the patient reports shortness of breath worse with exertion. She is 3 para 10 and does not recall having this severe shortness of breath during her other pregnancies. During our conversation she is noted to have 98% saturation while off the oxygen as she states that the high flow is uncomfortable to put in. Her spouse was in the room states that she has not been able to keep any food down that she does not like the taste of food she denies any loss of sensation of taste or smell at this time. She was not clear if she has nasal congestion but states that the force of the oxygen was more of a problem. She denies any fever nausea vomiting or diarrhea except as is associated with her normal . Chest x-ray concerning for bilateral infiltrates in the bases 04/11: Continue supportive care wean oxygen as tolerated. Follow results of the COVID-19. Covid 19 antibodies are negative at this time. Acute shortness of breath without hypoxia Upper respiratory patient's infectious with bilateral infiltrates in the chest concerning for pneumonia Rule out sepsis Systemic inflammatory response syndrome without organ dysfunction Patient under suspicion for COVID-19 at 34 weeks Plan Continue supportive care oxygen as tolerated for work of breathing Monitor saturation closely and if desaturation or increased work of breathing need to alert on any hospitalization Continue with steroids Patient discussed with care services manager and agree with recommendation guarded prognosis he has already spoken with the OB physician over the phone due to current bed status and if patient test positive for Covid will likely need to be transferred to tertiary institution where ECMO can be administered. Check inflammatory markers while awaiting COVID-19 testing and serology Infectious disease consulted will await their input DVT and GI prophylaxis Thank you for allowing us take part in the care of your patient as my physician to call available more therapeutic or diagnostic measures may need to be presented. History Interval history: Patient seen and examined resting comfortably no new complaints at this time. Hospitalist Physical - Physical exam Narrative exam: VITAL SIGNS: Reviewed. GENERAL: The patient appears normally developed, visually observed with no noted increased work of breathing able to speak complete sentences. She reports feeling better compared to yesterday and slept all night all other exams deferred at this time due to global pandemic and patient is a PUI. And an effort to conserve PPE vital signs as documented. - Constitutional Vitals: Temp Pulse Resp BP Pulse Ox 98.1 F 87 30 H 98/56 97 04/11/20 08:08 04/11/20 08:27 04/11/20 08:08 04/11/20 08:11 04/11/20 08:27 Results - Labs CBC & Chem 7: 04/09/20 18:23 04/09/20 20:56 Labs: Laboratory Last Values WBC 7.8 K/mm3 (4.5-11.0) 04/09/20 18: RBC 3.95 M/mm3 (3.65-5.03) 04/09/20 18:23 Hgb 10.3 gm/dl (10.1-14.3) 04/09/20 18: Hct 32.0 % (30.3-42.9) 04/09/20 18:23 MCV 81 fl (79-97) 04/09/20 18:23 MCH 26 pg (28-32) L 04/09/20 18: MCHC 32 % (30-34) 04/09/20 18: RDW 14.6 % (13.2-15.2) 04/09/20 18:23 Plt Count 223 K/mm3 (140-440) 04/09/20 18:23 Lymph % (Auto) 13.2 % (13.4-35.0) L 04/09/20 18:23 Morris % (Auto) 5.9 % (0.0-7.3) 04/09/20 18:23 Eos % (Auto) 0.1 % (0.0-4.3) 04/09/20 18: Baso % (Auto) 0.3 % (0.0-1.8) 04/09/20 18: Lymph # (Auto) 1.0 K/mm3 (1.2-5.4) L 04/09/20 18: Morris # (Auto) 0.5 K/mm3 (0.0-0.8) 04/09/20 18:23 Eos # (Auto) 0.0 K/mm3 (0.0-0.4) 04/09/20 18:23 Baso # (Auto) 0.0 K/mm3 (0.0-0.1) 04/09/20 18:23 Seg Neutrophils % 80.5 % (40.0-70.0) H 04/09/20 18:23 Seg Neutrophils # 6.3 K/mm3 (1.8-7.7) 04/09/20 18:23 D-Dimer 792.89 ng/mlDDU (0-234) H 04/09/20 20:56 ABG pH 7.38 (7.320-7.450) 04/10/20 06:45 POC ABG pCO2 25.8 mmHg (32.0-48.0) L 04/10/20 06:45 POC ABG pO2 72.1 mmHg (83-108) L 04/10/20 06:45 POC ABG HCO3 15.0 04/10/20 06:45 POC ABG Base Excess -8.8 04/10/20 06:45 ABG Hemoglobin 9.7 (12.0-17.5) L 04/10/20 06:45 ABG Sodium 133.3 mmol/L (136.0-145.0) L 04/10/20 06:45 ABG Potassium 2.4 mmol/L (3.40-4.50) L 04/10/20 06:45 ABG Chloride 107.0 mmol/L (98-107) 04/10/20 06:45 ABG Glucose 71 mg/dL (65-95) 04/10/20 06:45 Sodium 134 mmol/L (137-145) L 04/09/20 18:23 Potassium 3.1 mmol/L (3.6-5.0) L 04/09/20 18:23 Chloride 102.4 mmol/L (98-107) 04/09/20 18:23 Carbon Dioxide 17 mmol/L (22-30) L 04/09/20 18:23 Anion Gap 18 mmol/L 04/09/20 18:23 BUN 5 mg/dL (7-17) L 04/09/20 18:23 Creatinine 0.6 mg/dL (0.6-1.2) 04/09/20 18:23 Estimated GFR > 60 ml/min 04/09/20 18:23 BUN/Creatinine Ratio 8 % 04/09/20 18:23 Glucose 79 mg/dL (65-100) 04/09/20 20:56 Lactic Acid 0.80 mmol/L (0.7-2.0) 04/09/20 20:56 Calcium 8.6 mg/dL (8.4-10.2) 04/09/20 18:23 Ferritin 38.7 ng/mL (10.0-200.0) 04/09/20 20:56 Total Bilirubin 0.80 mg/dL (0.1-1.2) 04/09/20 18:23 AST 24 units/L (5-40) 04/09/20 18:23 ALT 15 units/L (7-56) 04/09/20 18:23 Alkaline Phosphatase 180 units/L (35-129) H 04/09/20 18:23 Lactate Dehydrogenase 224 units/L (91-180) H 04/09/20 20:56 C-Reactive Protein 5.00 mg/dL (0.00-1.30) H 04/09/20 20:56 Total Protein 6.9 g/dL (6.3-8.2) 04/09/20 18:23 Albumin 3.1 g/dL (3.9-5) L 04/09/20 18:23 Albumin/Globulin Ratio 0.8 % 04/09/20 18:23 Procalcitonin 0.46 ng/mL (<0.15) 04/09/20 18:23 Arterial Blood Glucose 71 mg/dL (65-95) 04/10/20 06:45 Arterial Blood Ionized Calcium 4.5 mg/dL (4.6-5.3) L 04/10/20 06:45 SARS-CoV-2 IgG Ab Nonreactive (NonReactive) 04/10/20 10:25 Microbiology: Microbiology 04/09/20 18:31 Peripheral/Venous Blood Culture - Preliminary NO GROWTH AFTER 24 HOURS 04/09/20 18:23 Peripheral/Venous Blood Culture - Preliminary NO GROWTH AFTER 24 HOURS Burt/IV: IV Catheter Type [Right Peripheral IV Antecubital] IV Catheter Type [Left Peripheral IV Antecubital] Active Medications - Current Medications Current Medications: Generic Name Dose Route Start Last Admin Trade Name Freq PRN Reason Stop Dose Admin Acetaminophen 650 mg 04/09/20 20:40 Tylenol PO Q4H PRN Pain MILD(1-3)/Fever >100.5/FINK Albuterol 2 puff 04/10/20 10:12 04/10/20 13:16 Proair IH 2 puff Q6HRT PRN Administration Shortness Of Breath Arformoterol Tartrate 15 mcg 04/10/20 09:30 04/10/20 19:47 Brovana Nebu IH 15 mcg Q12HRT MO Administration Budesonide 0.5 mg 04/10/20 09:15 04/10/20 19:47 Pulmicort IH 0.5 mg Q12HRT MO Administration Dexamethasone 6 mg 04/10/20 22:00 04/10/20 22:00 Decadron IV 04/11/20 22:01 6 mg Q12HR MO Administration Docusate Sodium 100 mg 04/09/20 20:40 Colace PO Q12H PRN Constipation Guaifenesin 10 ml 04/09/20 20:40 Guaifenesin Dm Syrup PO Q6H PRN Cough Ceftriaxone Sodium 2 gm in 100 mls @ 200 mls/hr 04/09/20 19:30 04/10/20 20:59 Rocephin/Ns 2 Gm/100 Ml IV 200 mls/hr Q24H MO Administration Protocol Lactated Ringer's 1,000 mls @ 125 mls/hr 04/09/20 20:45 04/10/20 23:46 Lactated Ringers IV 75 mls/hr DIRECT MO Administration Azithromycin 500 mg/ Sodium 250 mls @ 250 mls/hr 04/09/20 21:00 04/10/20 23:35 Chloride IV 250 mls/hr Q24H MO Administration Protocol REMDESIVIR 100 mg/ Sodium 250 mls @ 500 mls/hr 04/11/20 21:00 Chloride IV 04/14/20 21:29 Q24HR@2100 MO Multivitamins/Iron/Calcium 1 each 04/10/20 10:00 04/10/20 09:53 Vitamin PO 1 each QDAY MO Administration Ondansetron HCl 4 mg 04/09/20 20:40 Zofran IV Q6H PRN Nausea And Vomiting Sodium Chloride 2 spray 04/09/20 20:40 Deep Sea NS Q4H PRN Congestion Sodium Chloride 50 ml 04/10/20 21:00 Nacl 0.9% IV 04/14/20 21:01 Q24HR@2100 MO
[2020-04-11] MEDS: BUDESONIDE 0.5 MG/2 ML NEBU IH SCH ×2 (09:41→19:35)
[2020-04-11] MEDS: ARFORMOTEROL 15 MCG/2 ML NEBU IH SCH ×2 (09:41→19:35)
--- NOTE | 2020-04-11 10:03 | Progress Note ---
Assessment and Plan 25 y/o female, 34wks admitted with dyspnea on exertion and tachypnea with abnormal CXR, concern for COVID 19 pneumonia. 04/11/2020: Follow up COVID test. Continue supplemental oxygen and wean for sats >88% and comfort. Continue steroid therapy. Appreciate ID help. Continue asthma therapy. 1. Agree with COVID 19 rule out 2. Would start patient on inhaled steroid therapy as well as inhaled long acting beta agonist. Spoke with RT for NICU who is covering the mother baby floor as well. Patient was actually satting 93% on room air but was just very tachypnic. They suggest Vapotherm to help with her work of breathing which I do not disagree with. Please keep in mind this was changed not secondary to desaturation but to improve work of breathing. 3. Agree with IV steroids. Assuming the increased dosage is secondary to 4. Please limit IVF's, we like to run these patients on the dry side as increased or execessive volume could worsen hypoxemia 5. likely not able to prone 6. Guarded prognosis. Spoke with OB attending over the phone, current bed status in IMCU and ICU is not good. Unable to take patient to either unit right now secondary to staffing. If she becomes acutely ill and requires more oxygen then will need transfer to another facility unless our staffing can be improved. Guarded prognosis. Subjective Date of service: 04/11/20 Principal diagnosis: Suspected COVID-19, Bilateral Pneumonia, IUP at 34 wks Interval history: No acute events. Sats are stable. Objective Vital Signs - 12hr 04/10/20 04/10/20 04/10/20 22:01 22:06 22:11 Temperature Pulse Rate 105 H 98 H 99 H Respiratory Rate Blood Pressure Blood Pressure [Right] O2 Sat by Pulse 98 98 99 Oximetry 04/10/20 04/10/20 04/10/20 22:15 22:16 22:21 Temperature Pulse Rate 105 H 103 H 100 H Respiratory Rate Blood Pressure Blood Pressure [Right] O2 Sat by Pulse 91 98 99 Oximetry 04/10/20 04/10/20 04/10/20 22:26 22:31 22:33 Temperature Pulse Rate 97 H 100 H 100 H Respiratory Rate Blood Pressure 116/62 Blood Pressure [Right] O2 Sat by Pulse 91 99 Oximetry 12/05/20 12/05/20 12/05/20 22:36 22:41 22:46 Temperature Pulse Rate 99 H 102 H 96 H Respiratory Rate Blood Pressure Blood Pressure [Right] O2 Sat by Pulse 98 98 97 Oximetry 04/10/20 04/10/20 04/10/20 22:51 22:56 23:01 Temperature Pulse Rate 99 H 97 H 101 H Respiratory Rate Blood Pressure Blood Pressure [Right] O2 Sat by Pulse 97 96 97 Oximetry 04/10/20 04/10/20 04/10/20 23:06 23:11 23:16 Temperature Pulse Rate 103 H 91 H 96 H Respiratory Rate Blood Pressure Blood Pressure [Right] O2 Sat by Pulse 97 96 98 Oximetry 04/10/20 04/10/20 04/10/20 23:21 23:26 23:31 Temperature Pulse Rate 104 H 100 H 99 H Respiratory Rate Blood Pressure Blood Pressure [Right] O2 Sat by Pulse 98 98 98 Oximetry 04/10/20 04/10/20 04/10/20 23:33 23:36 23:41 Temperature Pulse Rate 97 H 98 H 101 H Respiratory Rate Blood Pressure 100/56 Blood Pressure [Right] O2 Sat by Pulse 97 96 Oximetry 04/10/20 04/10/20 04/10/20 23:46 23:47 23:51 Temperature 98.6 F Pulse Rate 101 H 99 H 101 H Respiratory 46 H Rate Blood Pressure Blood Pressure 100/56 [Right] O2 Sat by Pulse 96 95 95 Oximetry 04/10/20 04/10/20 04/11/20 23:53 23:56 00:01 Temperature Pulse Rate 103 H 102 H 99 H Respiratory Rate Blood Pressure Blood Pressure [Right] O2 Sat by Pulse 94 95 97 Oximetry 04/11/20 04/11/20 04/11/20 00:06 00:11 00:16 Temperature Pulse Rate 97 H 102 H 93 H Respiratory Rate Blood Pressure Blood Pressure [Right] O2 Sat by Pulse 97 97 95 Oximetry 04/11/20 04/11/20 04/11/20 00:21 00:26 00:31 Temperature Pulse Rate 98 H 95 H 96 H Respiratory Rate Blood Pressure Blood Pressure [Right] O2 Sat by Pulse 94 95 94 Oximetry 04/11/20 04/11/20 04/11/20 00:33 00:36 00:41 Temperature Pulse Rate 103 H 91 H 92 H Respiratory Rate Blood Pressure 114/61 Blood Pressure [Right] O2 Sat by Pulse 96 97 Oximetry 04/11/20 04/11/20 04/11/20 00:46 00:51 00:56 Temperature Pulse Rate 91 H 94 H 92 H Respiratory Rate Blood Pressure Blood Pressure [Right] O2 Sat by Pulse 96 96 97 Oximetry 04/11/20 04/11/20 04/11/20 01:01 01:06 01:11 Temperature Pulse Rate 92 H 93 H 93 H Respiratory Rate Blood Pressure Blood Pressure [Right] O2 Sat by Pulse 95 96 96 Oximetry 04/11/20 04/11/20 04/11/20 01:16 01:21 01:26 Temperature Pulse Rate 95 H 95 H 93 H Respiratory Rate Blood Pressure Blood Pressure [Right] O2 Sat by Pulse 96 96 96 Oximetry 04/11/20 04/11/20 04/11/20 01:31 01:33 01:36 Temperature Pulse Rate 95 H 92 H 93 H Respiratory Rate Blood Pressure 106/58 Blood Pressure [Right] O2 Sat by Pulse 96 96 Oximetry 04/11/20 04/11/20 04/11/20 01:41 01:46 01:51 Temperature Pulse Rate 92 H 94 H 91 H Respiratory Rate Blood Pressure Blood Pressure [Right] O2 Sat by Pulse 97 97 97 Oximetry 04/11/20 04/11/20 04/11/20 01:56 02:00 02:01 Temperature Pulse Rate 92 H 93 H Respiratory Rate Blood Pressure Blood Pressure [Right] O2 Sat by Pulse 97 97 97 Oximetry 04/11/20 04/11/20 04/11/20 02:06 02:11 02:16 Temperature Pulse Rate 99 H 88 91 H Respiratory Rate Blood Pressure Blood Pressure [Right] O2 Sat by Pulse 97 97 97 Oximetry 04/11/20 04/11/20 04/11/20 02:21 02:26 02:31 Temperature Pulse Rate 89 90 91 H Respiratory Rate Blood Pressure Blood Pressure [Right] O2 Sat by Pulse 97 97 97 Oximetry 04/11/20 04/11/20 04/11/20 02:33 02:36 02:41 Temperature Pulse Rate 96 H 88 91 H Respiratory Rate Blood Pressure 107/59 Blood Pressure [Right] O2 Sat by Pulse 97 97 Oximetry 04/11/20 04/11/20 04/11/20 02:46 02:51 02:56 Temperature Pulse Rate 84 86 89 Respiratory Rate Blood Pressure Blood Pressure [Right] O2 Sat by Pulse 97 97 97 Oximetry 04/11/20 04/11/20 04/11/20 03:01 03:06 03:11 Temperature Pulse Rate 87 86 89 Respiratory Rate Blood Pressure Blood Pressure [Right] O2 Sat by Pulse 97 97 97 Oximetry 04/11/20 04/11/20 04/11/20 03:16 03:21 03:26 Temperature Pulse Rate 89 83 87 Respiratory Rate Blood Pressure Blood Pressure [Right] O2 Sat by Pulse 97 97 97 Oximetry 04/11/20 04/11/20 04/11/20 03:31 03:33 03:36 Temperature Pulse Rate 87 85 81 Respiratory Rate Blood Pressure 104/59 Blood Pressure [Right] O2 Sat by Pulse 97 97 Oximetry 04/11/20 04/11/20 04/11/20 03:41 03:46 03:51 Temperature Pulse Rate 90 89 86 Respiratory Rate Blood Pressure Blood Pressure [Right] O2 Sat by Pulse 97 97 98 Oximetry 04/11/20 04/11/20 04/11/20 03:56 04:00 04:01 Temperature 97.7 F Pulse Rate 81 87 Respiratory 36 H Rate Blood Pressure Blood Pressure [Right] O2 Sat by Pulse 97 97 Oximetry 04/11/20 04/11/20 04/11/20 04:06 04:11 04:16 Temperature Pulse Rate 87 90 92 H Respiratory Rate Blood Pressure Blood Pressure [Right] O2 Sat by Pulse 95 96 97 Oximetry 04/11/20 04/11/20 04/11/20 04:21 04:26 04:31 Temperature Pulse Rate 114 H 94 H 103 H Respiratory Rate Blood Pressure Blood Pressure [Right] O2 Sat by Pulse 98 95 97 Oximetry 04/11/20 04/11/20 04/11/20 04:33 04:36 04:41 Temperature Pulse Rate 96 H 100 H 96 H Respiratory Rate Blood Pressure 104/61 Blood Pressure [Right] O2 Sat by Pulse 96 99 Oximetry 04/11/20 04/11/20 04/11/20 04:43 04:46 04:51 Temperature Pulse Rate 107 H 94 H 97 H Respiratory Rate Blood Pressure Blood Pressure [Right] O2 Sat by Pulse 85 96 95 Oximetry 04/11/20 04/11/20 04/11/20 04:56 05:01 05:06 Temperature Pulse Rate 103 H 101 H 91 H Respiratory Rate Blood Pressure Blood Pressure [Right] O2 Sat by Pulse 96 87 98 Oximetry 04/11/20 04/11/20 04/11/20 05:11 05:16 05:21 Temperature Pulse Rate 100 H 88 91 H Respiratory Rate Blood Pressure Blood Pressure [Right] O2 Sat by Pulse 98 98 99 Oximetry 04/11/20 04/11/20 04/11/20 05:26 05:31 05:33 Temperature Pulse Rate 87 89 88 Respiratory Rate Blood Pressure 100/56 Blood Pressure [Right] O2 Sat by Pulse 98 99 Oximetry 04/11/20 04/11/20 04/11/20 05:36 05:41 05:46 Temperature Pulse Rate 88 87 90 Respiratory Rate Blood Pressure Blood Pressure [Right] O2 Sat by Pulse 98 98 98 Oximetry 04/11/20 04/11/20 04/11/20 05:51 05:56 06:01 Temperature Pulse Rate 85 93 H 83 Respiratory Rate Blood Pressure Blood Pressure [Right] O2 Sat by Pulse 98 99 99 Oximetry 04/11/20 04/11/20 04/11/20 06:06 06:11 06:22 Temperature Pulse Rate 82 86 109 H Respiratory Rate Blood Pressure Blood Pressure [Right] O2 Sat by Pulse 98 99 92 Oximetry 04/11/20 04/11/20 04/11/20 06:27 06:32 06:37 Temperature Pulse Rate 97 H 92 H 96 H Respiratory Rate Blood Pressure Blood Pressure [Right] O2 Sat by Pulse 93 94 94 Oximetry 04/11/20 04/11/20 04/11/20 06:42 06:47 06:52 Temperature Pulse Rate 98 H 89 89 Respiratory Rate Blood Pressure Blood Pressure [Right] O2 Sat by Pulse 95 96 96 Oximetry 04/11/20 04/11/20 04/11/20 06:57 07:02 07:07 Temperature Pulse Rate 94 H 86 88 Respiratory Rate Blood Pressure Blood Pressure [Right] O2 Sat by Pulse 95 95 97 Oximetry 04/11/20 04/11/20 04/11/20 07:12 07:17 07:22 Temperature Pulse Rate 95 H 93 H 85 Respiratory Rate Blood Pressure Blood Pressure [Right] O2 Sat by Pulse 96 96 96 Oximetry 04/11/20 04/11/20 04/11/20 07:27 07:32 07:37 Temperature Pulse Rate 87 84 90 Respiratory Rate Blood Pressure Blood Pressure [Right] O2 Sat by Pulse 97 97 97 Oximetry 04/11/20 04/11/20 04/11/20 07:42 07:47 07:52 Temperature Pulse Rate 87 84 87 Respiratory Rate Blood Pressure Blood Pressure [Right] O2 Sat by Pulse 98 99 99 Oximetry 04/11/20 04/11/20 04/11/20 07:57 08:02 08:07 Temperature Pulse Rate 90 89 90 Respiratory Rate Blood Pressure Blood Pressure [Right] O2 Sat by Pulse 99 98 98 Oximetry 04/11/20 04/11/20 04/11/20 08:08 08:11 08:12 Temperature 98.1 F Pulse Rate 97 H 92 H 96 H Respiratory 30 H Rate Blood Pressure 98/56 Blood Pressure [Right] O2 Sat by Pulse 98 96 Oximetry 04/11/20 04/11/20 04/11/20 08:17 08:22 08:27 Temperature Pulse Rate 101 H 93 H 87 Respiratory Rate Blood Pressure Blood Pressure [Right] O2 Sat by Pulse 98 98 97 Oximetry 04/11/20 04/11/20 04/11/20 08:32 08:37 08:42 Temperature Pulse Rate 94 H 113 H 91 H Respiratory Rate Blood Pressure Blood Pressure [Right] O2 Sat by Pulse 99 98 98 Oximetry 04/11/20 04/11/20 04/11/20 08:47 08:52 08:57 Temperature Pulse Rate 89 104 H 91 H Respiratory Rate Blood Pressure Blood Pressure [Right] O2 Sat by Pulse 98 95 96 Oximetry 04/11/20 04/11/20 04/11/20 09:02 09:07 09:12 Temperature Pulse Rate 95 H 96 H 95 H Respiratory Rate Blood Pressure Blood Pressure [Right] O2 Sat by Pulse 95 96 97 Oximetry 04/11/20 04/11/20 04/11/20 09:17 09:22 09:27 Temperature Pulse Rate 94 H 94 H 97 H Respiratory Rate Blood Pressure Blood Pressure [Right] O2 Sat by Pulse 97 98 97 Oximetry 04/11/20 04/11/20 04/11/20 09:32 09:37 09:42 Temperature Pulse Rate 91 H 93 H 97 H Respiratory Rate Blood Pressure Blood Pressure [Right] O2 Sat by Pulse 99 99 98 Oximetry 04/11/20 04/11/20 09:47 09:52 Temperature Pulse Rate 90 97 H Respiratory Rate Blood Pressure Blood Pressure [Right] O2 Sat by Pulse 98 99 Oximetry CBC and BMP: 04/09/20 18:23 04/09/20 20:56 ABG, PT/INR, D-dimer: ABG ABG pH 7.38 (7.320-7.450) 04/10/20 06:45 POC ABG pCO2 25.8 mmHg (32.0-48.0) L 04/10/20 06:45 POC ABG pO2 72.1 mmHg (83-108) L 04/10/20 06:45 POC ABG HCO3 15.0 04/10/20 06:45 PT/INR, D-dimer D-Dimer 792.89 ng/mlDDU (0-234) H 04/09/20 20:56 Abnormal lab findings: Abnormal Labs 04/09/20 04/09/20 04/09/20 18:23 18:23 18:23 MCH 26 L Lymph % (Auto) 13.2 L Lymph # (Auto) 1.0 L Seg Neutrophils % 80.5 H D-Dimer 896.32 H POC ABG pCO2 POC ABG pO2 ABG Hemoglobin ABG Sodium ABG Potassium Sodium 134 L Potassium 3.1 L Carbon Dioxide 17 L BUN 5 L Alkaline Phosphatase 180 H Lactate Dehydrogenase C-Reactive Protein Albumin 3.1 L Arterial Blood Ionized Calcium 04/09/20 04/09/20 04/09/20 18:23 20:56 20:56 MCH Lymph % (Auto) Lymph # (Auto) Seg Neutrophils % D-Dimer 792.89 H POC ABG pCO2 POC ABG pO2 ABG Hemoglobin ABG Sodium ABG Potassium Sodium Potassium Carbon Dioxide BUN Alkaline Phosphatase Lactate Dehydrogenase 244 H 224 H C-Reactive Protein 5.30 H 5.00 H Albumin Arterial Blood Ionized Calcium 04/10/20 06:45 MCH Lymph % (Auto) Lymph # (Auto) Seg Neutrophils % D-Dimer POC ABG pCO2 25.8 L POC ABG pO2 72.1 L ABG Hemoglobin 9.7 L ABG Sodium 133.3 L ABG Potassium 2.4 L Sodium Potassium Carbon Dioxide BUN Alkaline Phosphatase Lactate Dehydrogenase C-Reactive Protein Albumin Arterial Blood Ionized Calcium 4.5 L Allied health notes reviewed: RT
[2020-04-11] MEDS: dexAMETHasone 4 MG/ML VIAL IV SCH ×2 (10:35→22:13)
[2020-04-11] MEDS: PRENATAL VIT27-FE FUMARATE-FOLIC ACID VIT TAB PO SCH (10:35)
[2020-04-11 12:31] LABS: Alanine Aminotransferase 17 units/L (7-56); Albumin 2.7 g/dL (3.9-5); BUN/Creatinine Ratio 8; Blood Urea Nitrogen 4 mg/dL (7-17); Calcium 8.7 mg/dL (8.4-10.2); Hemolysis Index 0
[2020-04-11 13:00] LABS: Hematocrit 30.3 % (30.3-42.9); Hemoglobin 9.9 gm/dl (10.1-14.3); Mean Corpuscular HGB Conc 33 % (30-34); Mean Corpuscular Volume 81 fl (79-97); Platelet Count 271 K/mm3 (140-440); Red Blood Count 3.72 M/mm3 (3.65-5.03); Red Cell Distribution Width 14.7 % (13.2-15.2)
[2020-04-11 13:01] LABS: Basophils % (Auto) 0.1 % (0.0-1.8); Lymphocytes % (Auto) 12.4 % (13.4-35.0); Monocytes # (Auto) 0.6 K/mm3 (0.0-0.8); Monocytes % (Auto) 6.8 % (0.0-7.3)
[2020-04-11 15:27] LABS: Bacteria,Urine 1+ /HPF (Negative); Mucus,Urine FEW /HPF
[2020-04-11 15:33] LABS: Bilirubin,Urine Moderate (Negative); Color,Urine Yellow (Yellow)
[2020-04-11 15:34] LABS: Blood,Urine Trace (Negative); Protein,Urine <30 mg dL mg/dL (Negative); Urobilinogen,Urine < 0.2 mg/dL (<2.0)
[2020-04-11 15:35] LABS: Ictotest,Urine Negative (Negative)
[2020-04-11] MEDS ORDERED: ACETAMINOPHEN 500 MG TAB ONE (17:15)
[2020-04-11] MEDS ORDERED: ACETAMINOPHEN 500 MG TAB PO ONE (17:16)
--- NOTE | 2020-04-11 18:10 | Progress Note ---
Assessment and Plan Cultures: Blood culture 04/09/2020 no growth today SARS CoV2 PCR pending SARS CoV2 IgG negative Assessment: 25 years old female with history of asthma, thalassemia carrier currently with 34 weeks of admitted on 04/09/2020 secondary to a week history of generalized malaise, body aches, cough and shortness of breath as well as 2 days of irregular contractions: #Severe sepsis: With tachycardia, tachypnea, hypoxia likely due to bilateral pneumonia. #Presumed Severe COVID pneumonia: Chest x-ray with bilateral multifocal pneumonia. Inflammatory markers elevated. Ferritin normal. Procalcitonin 0.4. ? Slightly up will consider a bacterial component. #Acute hypoxemic respiratory failure: Initial O2 sat dropped to 89%. Currently on high flow severe oxygen 40%. #: 34 weeks. Recommendations: - Follow-up Covid PCR - pending - Continue dexamethasone for 10 days -Continue remdesivir x 5 days -SARS-CoV-2 PCR pending, day 2 of 5, usually will start remdesivir after confirmation of COVID-19, unfortunately patient is hypoxic and - SARS-CoV-2 IgG negative, patient may benefit from Covid convalescent plasma if hypoxia does not get better - Monitor inflammatory markers - ferritin, Ddimer, CRP, LDH every 48 hours - Continue ceftriaxone for 5 days and azithromycin for 3 days - Monitor liver function test on Remdesivir - Continue anticoagulation per System Protocol - Prone positioning as possible - Pulmonary on board - Close monitoring All laboratory, cultures and imaging were reviewed. Patient is at risk of deterioration, consider transferring to tertiary facility with ECMO if clinical decompensation Will follow Charlee Ruth MD Infectious Diseases Circulation Tender [facility] M [phone] O [phone] Subjective Date of service: 04/11/20 Principal diagnosis: Suspected COVID-19, Bilateral Pneumonia, IUP at 34 wks Interval history: Remains on HFNC 30% no fever Objective - Exam Narrative Exam: Physical Exam: reviewed ED and hospitalist notes, limited due to conservation of PPE and decrease risk of transmission. General appearance: limited due to conservation of PPE Eyes: limited due to conservation of PPE HENT: Atraumatic; limited due to conservation of PPE Lungs: limited due to conservation of PPE CV: limited due to conservation of PPE Abdomen: limited due to conservation of PPE Extremities: limited due to conservation of PPE Skin: limited due to conservation of PPE Psych: limited due to conservation of PPE Neuro: limited due to conservation of PPE - Constitutional Vitals: Vital Signs Temp Pulse Resp BP Pulse Ox 98.3 F 99 H 28 H 119/68 97 04/11/20 15:50 04/11/20 17:57 04/11/20 15:50 04/11/20 16:58 04/11/20 17:57 Temperature -Last 24 Hours Temperature 98.3 F Temperature 98.1 F Temperature 98.1 F Temperature 97.7 F Temperature 98.6 F Temperature 98.4 F Temperature 97.6 F - Labs CBC & Chem 7: 04/11/20 11:08 04/11/20 11:08 Labs: Abnormal lab results 04/11/20 04/11/20 04/11/20 Range/Units 11:08 11:08 11:08 Hgb 9.9 L (10.1-14.3) gm/dl MCH 27 L (28-32) pg Lymph % (Auto) 12.4 L (13.4-35.0) % Lymph # (Auto) 1.0 L (1.2-5.4) K/mm3 Seg Neutrophils % 80.7 H (40.0-70.0) % D-Dimer 413.22 H (0-234) ng/mlDDU Chloride 108.1 H (98-107) mmol/L Carbon Dioxide 16 L (22-30) mmol/L BUN 4 L (7-17) mg/dL Creatinine 0.5 L (0.6-1.2) mg/dL Alkaline Phosphatase 178 H (35-129) units/L Lactate Dehydrogenase 256 H (91-180) units/L C-Reactive Protein 4.40 H (0.00-1.30) mg/dL Albumin 2.7 L (3.9-5) g/dL Urine WBC (Auto) (0.0-6.0) /HPF 04/11/20 Range/Units Unknown Hgb (10.1-14.3) gm/dl MCH (28-32) pg Lymph % (Auto) (13.4-35.0) % Lymph # (Auto) (1.2-5.4) K/mm3 Seg Neutrophils % (40.0-70.0) % D-Dimer (0-234) ng/mlDDU Chloride (98-107) mmol/L Carbon Dioxide (22-30) mmol/L BUN (7-17) mg/dL Creatinine (0.6-1.2) mg/dL Alkaline Phosphatase (35-129) units/L Lactate Dehydrogenase (91-180) units/L C-Reactive Protein (0.00-1.30) mg/dL Albumin (3.9-5) g/dL Urine WBC (Auto) 8.0 H (0.0-6.0) /HPF
[2020-04-11] MEDS: cefTRIAXone/NS 2 GM/100 ML 2 GM/100 ML BAG IV SCH (20:15)
[2020-04-11] MEDS ORDERED: SODIUM CHLORIDE 0.9% 1000 ML 1,000 ML ONE (21:52)
[2020-04-11] MEDS: AZITHROMYCIN 500 MG in SODIUM CHLORIDE 0.9% 250ML 250 ML IV SCH (22:14)
[2020-04-11] MEDS: REMDESIVIR 100 MG in SODIUM CHLORIDE 0.9% 250ML 250 ML IV SCH (22:15)
[2020-04-12 07:25] LABS: Hematocrit 28.6 % (30.3-42.9); Hemoglobin 9.2 gm/dl (10.1-14.3); Mean Corpuscular HGB Conc 32 % (30-34); Mean Corpuscular Volume 80 fl (79-97); Platelet Count 294 K/mm3 (140-440); Red Blood Count 3.56 M/mm3 (3.65-5.03)
[2020-04-12 07:30] LABS: BUN/Creatinine Ratio 10; Blood Urea Nitrogen 5 mg/dL (7-17); Calcium 8.2 mg/dL (8.4-10.2); Hemolysis Index 3
--- NOTE | 2020-04-12 08:02 | Progress Note ---
Assessment and Plan - Patient Problems (1) Bilateral pneumonia Current Visit: Yes Status: Acute Plan to address problem: continue with current treatment plan respiratory status remains stable (2) Suspected 2019 novel coronavirus infection Current Visit: Yes Status: Acute Subjective - Subjective Date of service: 04/12/20 Principal diagnosis: Suspected COVID-19, Bilateral Pneumonia, IUP at 34 wks Interval history: 25y/o @34+4 weeks admitted for symptoms suspicious for Covid. Imaging demonstrates findings of pneumonia. The patient states her breathing is slightly improved. She complains of LLQ pain that feels like contractions. She denies any leakage of fluid or vaginal bleeding. COVID testing pending. Patient being followed by ID and hospitalist. Patient reports: no new complaints Objective - Vital Signs Vital Signs: Vital Signs - 12hr 04/11/20 04/11/20 04/11/20 20:02 20:07 20:12 Temperature Pulse Rate 90 97 H 97 H Blood Pressure O2 Sat by Pulse 98 98 99 Oximetry 04/11/20 04/11/20 04/11/20 20:17 20:22 20:27 Temperature Pulse Rate 94 H 95 H 94 H Blood Pressure O2 Sat by Pulse 99 99 98 Oximetry 04/11/20 04/11/20 04/11/20 20:32 20:37 20:42 Temperature Pulse Rate 95 H 88 91 H Blood Pressure O2 Sat by Pulse 99 99 100 Oximetry 04/11/20 04/11/20 04/11/20 20:47 20:52 20:57 Temperature Pulse Rate 88 95 H 105 H Blood Pressure O2 Sat by Pulse 99 97 98 Oximetry 04/11/20 04/11/20 04/11/20 21:02 21:07 21:12 Temperature Pulse Rate 92 H 95 H 106 H Blood Pressure O2 Sat by Pulse 99 97 98 Oximetry 04/11/20 04/11/20 04/11/20 21:17 21:22 21:27 Temperature Pulse Rate 92 H 84 90 Blood Pressure O2 Sat by Pulse 97 98 97 Oximetry 04/11/20 04/11/20 04/11/20 21:32 21:37 21:42 Temperature Pulse Rate 97 H 85 97 H Blood Pressure O2 Sat by Pulse 97 98 98 Oximetry 04/11/20 04/11/20 04/11/20 21:47 21:52 21:57 Temperature Pulse Rate 100 H 93 H 100 H Blood Pressure O2 Sat by Pulse 98 98 98 Oximetry 04/11/20 04/11/20 04/11/20 22:02 22:07 22:12 Temperature Pulse Rate 96 H 93 H 98 H Blood Pressure O2 Sat by Pulse 97 97 97 Oximetry 04/11/20 04/11/20 04/11/20 22:17 22:22 22:27 Temperature Pulse Rate 90 95 H 91 H Blood Pressure O2 Sat by Pulse 99 97 97 Oximetry 04/11/20 04/11/20 04/11/20 22:32 22:37 22:42 Temperature Pulse Rate 94 H 102 H 93 H Blood Pressure O2 Sat by Pulse 98 98 99 Oximetry 04/11/20 04/11/20 04/11/20 22:47 22:52 22:57 Temperature Pulse Rate 98 H 106 H 91 H Blood Pressure 98/61 O2 Sat by Pulse 99 97 97 Oximetry 04/11/20 04/11/20 04/11/20 23:02 23:07 23:12 Temperature Pulse Rate 101 H 96 H 89 Blood Pressure O2 Sat by Pulse 98 98 98 Oximetry 04/11/20 04/11/20 04/11/20 23:15 23:17 23:22 Temperature 97.8 F Pulse Rate 91 H 106 H Blood Pressure O2 Sat by Pulse 98 97 Oximetry 04/11/20 04/11/20 04/11/20 23:27 23:32 23:37 Temperature Pulse Rate 97 H 92 H 96 H Blood Pressure O2 Sat by Pulse 98 98 97 Oximetry 04/11/20 04/11/20 04/11/20 23:42 23:47 23:52 Temperature Pulse Rate 89 121 H 96 H Blood Pressure O2 Sat by Pulse 96 96 96 Oximetry 04/11/20 04/12/20 04/12/20 23:57 00:02 00:07 Temperature Pulse Rate 97 H 101 H 93 H Blood Pressure O2 Sat by Pulse 96 97 96 Oximetry 04/12/20 04/12/20 04/12/20 00:12 00:17 00:22 Temperature Pulse Rate 93 H 92 H 94 H Blood Pressure O2 Sat by Pulse 95 96 97 Oximetry 04/12/20 04/12/20 04/12/20 00:27 00:32 00:37 Temperature Pulse Rate 95 H 100 H 98 H Blood Pressure O2 Sat by Pulse 97 97 95 Oximetry 04/12/20 04/12/20 04/12/20 00:42 00:47 00:52 Temperature Pulse Rate 98 H 96 H 100 H Blood Pressure O2 Sat by Pulse 96 97 97 Oximetry 04/12/20 04/12/20 04/12/20 00:57 01:02 01:07 Temperature Pulse Rate 96 H 90 93 H Blood Pressure 101/55 O2 Sat by Pulse 99 98 97 Oximetry 04/12/20 04/12/20 04/12/20 01:12 01:17 01:22 Temperature Pulse Rate 97 H 101 H 98 H Blood Pressure O2 Sat by Pulse 98 97 97 Oximetry 04/12/20 04/12/20 04/12/20 01:26 01:38 01:43 Temperature Pulse Rate 89 111 H 94 H Blood Pressure O2 Sat by Pulse 82 L 92 95 Oximetry 04/12/20 04/12/20 04/12/20 01:48 01:53 01:58 Temperature Pulse Rate 93 H 87 96 H Blood Pressure O2 Sat by Pulse 95 96 95 Oximetry 04/12/20 04/12/20 04/12/20 02:00 02:03 02:08 Temperature Pulse Rate 87 88 Blood Pressure O2 Sat by Pulse 97 95 95 Oximetry 04/12/20 04/12/20 04/12/20 02:13 02:18 02:23 Temperature Pulse Rate 84 84 88 Blood Pressure O2 Sat by Pulse 95 96 96 Oximetry 04/12/20 04/12/20 04/12/20 02:28 02:33 02:38 Temperature Pulse Rate 89 84 95 H Blood Pressure O2 Sat by Pulse 96 97 96 Oximetry 04/12/20 04/12/20 04/12/20 02:43 02:48 02:53 Temperature Pulse Rate 90 90 85 Blood Pressure O2 Sat by Pulse 96 97 97 Oximetry 04/12/20 04/12/20 04/12/20 02:57 02:58 03:03 Temperature Pulse Rate 82 87 86 Blood Pressure 97/55 O2 Sat by Pulse 97 96 Oximetry 04/12/20 04/12/20 04/12/20 03:08 03:13 03:15 Temperature 98.0 F Pulse Rate 87 86 Blood Pressure O2 Sat by Pulse 97 98 Oximetry 04/12/20 04/12/20 04/12/20 03:18 03:23 03:28 Temperature Pulse Rate 90 86 88 Blood Pressure O2 Sat by Pulse 97 97 97 Oximetry 04/12/20 04/12/20 04/12/20 03:33 03:38 03:43 Temperature Pulse Rate 85 89 89 Blood Pressure O2 Sat by Pulse 97 96 96 Oximetry 04/12/20 04/12/20 04/12/20 03:48 03:53 03:58 Temperature Pulse Rate 89 101 H 81 Blood Pressure O2 Sat by Pulse 96 96 96 Oximetry 04/12/20 04/12/20 04/12/20 04:03 04:08 04:13 Temperature Pulse Rate 86 85 84 Blood Pressure O2 Sat by Pulse 96 96 96 Oximetry 04/12/20 04/12/20 04/12/20 04:18 04:23 04:28 Temperature Pulse Rate 85 94 H 82 Blood Pressure O2 Sat by Pulse 95 96 96 Oximetry 04/12/20 04/12/20 04/12/20 04:33 04:38 04:43 Temperature Pulse Rate 85 83 81 Blood Pressure O2 Sat by Pulse 96 95 96 Oximetry 04/12/20 04/12/20 04/12/20 04:48 04:53 04:57 Temperature Pulse Rate 86 87 86 Blood Pressure 100/58 O2 Sat by Pulse 96 95 Oximetry 04/12/20 04/12/20 04/12/20 04:58 05:03 05:08 Temperature Pulse Rate 92 H 80 86 Blood Pressure O2 Sat by Pulse 95 96 95 Oximetry 04/12/20 04/12/20 04/12/20 05:13 05:18 05:23 Temperature Pulse Rate 86 86 86 Blood Pressure O2 Sat by Pulse 95 95 95 Oximetry 04/12/20 04/12/20 04/12/20 05:28 05:33 05:38 Temperature Pulse Rate 86 102 H 91 H Blood Pressure O2 Sat by Pulse 96 95 96 Oximetry 04/12/20 04/12/20 04/12/20 05:43 05:48 05:53 Temperature Pulse Rate 92 H 82 87 Blood Pressure O2 Sat by Pulse 96 96 95 Oximetry 04/12/20 04/12/20 04/12/20 05:58 06:03 06:08 Temperature Pulse Rate 84 94 H 97 H Blood Pressure O2 Sat by Pulse 96 98 95 Oximetry 04/12/20 04/12/20 04/12/20 06:13 06:18 06:23 Temperature Pulse Rate 85 97 H 103 H Blood Pressure O2 Sat by Pulse 95 96 97 Oximetry 04/12/20 04/12/20 04/12/20 06:28 06:33 06:38 Temperature Pulse Rate 96 H 89 99 H Blood Pressure O2 Sat by Pulse 98 97 96 Oximetry 04/12/20 04/12/20 04/12/20 06:43 06:48 06:53 Temperature Pulse Rate 92 H 90 89 Blood Pressure O2 Sat by Pulse 97 97 97 Oximetry 04/12/20 04/12/20 04/12/20 06:57 06:58 07:03 Temperature Pulse Rate 87 89 86 Blood Pressure 114/59 O2 Sat by Pulse 96 97 Oximetry 04/12/20 04/12/20 04/12/20 07:08 07:13 07:18 Temperature Pulse Rate 104 H 91 H 103 H Blood Pressure O2 Sat by Pulse 92 96 96 Oximetry 04/12/20 04/12/20 04/12/20 07:23 07:26 07:28 Temperature Pulse Rate 89 109 H 84 Blood Pressure O2 Sat by Pulse 95 88 96 Oximetry 04/12/20 04/12/20 04/12/20 07:33 07:38 07:43 Temperature Pulse Rate 89 95 H 86 Blood Pressure O2 Sat by Pulse 96 96 97 Oximetry 04/12/20 04/12/20 04/12/20 07:48 07:53 07:58 Temperature Pulse Rate 100 H 109 H 90 Blood Pressure O2 Sat by Pulse 96 95 96 Oximetry - Labs Labs: Abnormal Labs 04/09/20 04/09/20 04/09/20 18:23 18:23 18:23 RBC Hgb Hct MCH 26 L Lymph % (Auto) 13.2 L Lymph # (Auto) 1.0 L Seg Neutrophils % 80.5 H D-Dimer 896.32 H POC ABG pCO2 POC ABG pO2 ABG Hemoglobin ABG Sodium ABG Potassium Sodium 134 L Potassium 3.1 L Chloride Carbon Dioxide 17 L BUN 5 L Creatinine Calcium Alkaline Phosphatase 180 H Lactate Dehydrogenase C-Reactive Protein Albumin 3.1 L Arterial Blood Ionized Calcium Urine WBC (Auto) 04/09/20 04/09/20 04/09/20 18:23 20:56 20:56 RBC Hgb Hct MCH Lymph % (Auto) Lymph # (Auto) Seg Neutrophils % D-Dimer 792.89 H POC ABG pCO2 POC ABG pO2 ABG Hemoglobin ABG Sodium ABG Potassium Sodium Potassium Chloride Carbon Dioxide BUN Creatinine Calcium Alkaline Phosphatase Lactate Dehydrogenase 244 H 224 H C-Reactive Protein 5.30 H 5.00 H Albumin Arterial Blood Ionized Calcium Urine WBC (Auto) 04/10/20 04/11/20 04/11/20 06:45 11:08 11:08 RBC Hgb 9.9 L Hct MCH 27 L Lymph % (Auto) 12.4 L Lymph # (Auto) 1.0 L Seg Neutrophils % 80.7 H D-Dimer 413.22 H POC ABG pCO2 25.8 L POC ABG pO2 72.1 L ABG Hemoglobin 9.7 L ABG Sodium 133.3 L ABG Potassium 2.4 L Sodium Potassium Chloride Carbon Dioxide BUN Creatinine Calcium Alkaline Phosphatase Lactate Dehydrogenase C-Reactive Protein Albumin Arterial Blood Ionized Calcium 4.5 L Urine WBC (Auto) 04/11/20 04/11/20 04/12/20 11:08 Unknown 06:56 RBC 3.56 L Hgb 9.2 L Hct 28.6 L MCH 26 L Lymph % (Auto) Lymph # (Auto) Seg Neutrophils % D-Dimer POC ABG pCO2 POC ABG pO2 ABG Hemoglobin ABG Sodium ABG Potassium Sodium Potassium Chloride 108.1 H Carbon Dioxide 16 L BUN 4 L Creatinine 0.5 L Calcium Alkaline Phosphatase 178 H Lactate Dehydrogenase 256 H C-Reactive Protein 4.40 H Albumin 2.7 L Arterial Blood Ionized Calcium Urine WBC (Auto) 8.0 H 04/12/20 06:56 RBC Hgb Hct MCH Lymph % (Auto) Lymph # (Auto) Seg Neutrophils % D-Dimer POC ABG pCO2 POC ABG pO2 ABG Hemoglobin ABG Sodium ABG Potassium Sodium Potassium Chloride 108.7 H Carbon Dioxide 18 L BUN 5 L Creatinine 0.5 L Calcium 8.2 L Alkaline Phosphatase Lactate Dehydrogenase C-Reactive Protein Albumin Arterial Blood Ionized Calcium Urine WBC (Auto) Laboratory Results - last 24 hr 04/11/20 04/11/20 04/11/20 11:08 11:08 11:08 WBC 8.2 RBC 3.72 Hgb 9.9 L Hct 30.3 MCV 81 MCH 27 L MCHC 33 RDW 14.7 Plt Count 271 Lymph % (Auto) 12.4 L [place] % (Auto) 6.8 Eos % (Auto) 0.0 Baso % (Auto) 0.1 Lymph # (Auto) 1.0 L [place] # (Auto) 0.6 Eos # (Auto) 0.0 Baso # (Auto) 0.0 Seg Neutrophils % 80.7 H Seg Neutrophils # 6.6 D-Dimer 413.22 H Sodium 140 Potassium 3.6 Chloride 108.1 H Carbon Dioxide 16 L Anion Gap 20 BUN 4 L Creatinine 0.5 L Estimated GFR > 60 BUN/Creatinine Ratio 8 Glucose 80 Calcium 8.7 Ferritin Total Bilirubin 0.80 AST 24 ALT 17 Alkaline Phosphatase 178 H Lactate Dehydrogenase 256 H C-Reactive Protein 4.40 H Total Protein 6.3 Albumin 2.7 L Albumin/Globulin Ratio 0.8 Urine Color Urine Turbidity Urine pH Ur Specific [place] Urine Protein Urine Glucose (UA) Urine Ketones Urine Blood Urine Nitrite Ur Reducing Substances Urine Bilirubin Urine Ictotest Urine Urobilinogen Ur Leukocyte Esterase Urine WBC (Auto) Urine RBC (Auto) U Epithel Cells (Auto) Urine Bacteria (Auto) Urine Mucus Urine Yeast (Budding) Blood Type Antibody Screen 04/11/20 04/11/20 04/11/20 11:08 20:40 Unknown WBC RBC Hgb Hct MCV MCH MCHC RDW Plt Count Lymph % (Auto) [place] % (Auto) Eos % (Auto) Baso % (Auto) Lymph # (Auto) [place] # (Auto) Eos # (Auto) Baso # (Auto) Seg Neutrophils % Seg Neutrophils # D-Dimer Sodium Potassium Chloride Carbon Dioxide Anion Gap BUN Creatinine Estimated GFR BUN/Creatinine Ratio Glucose Calcium Ferritin 45.9 Total Bilirubin AST ALT Alkaline Phosphatase Lactate Dehydrogenase C-Reactive Protein Total Protein Albumin Albumin/Globulin Ratio Urine Color Yellow Urine Turbidity Clear Urine pH 6.0 Ur Specific [place] 1.015 Urine Protein <30 mg dl Urine Glucose (UA) Negative Urine Ketones 160 Urine Blood Trace Urine Nitrite Negative Ur Reducing Substances Not Reportable Urine Bilirubin Moderate Urine Ictotest Negative Urine Urobilinogen < 0.2 Ur Leukocyte Esterase Trace Urine WBC (Auto) 8.0 H Urine RBC (Auto) 9.0 U Epithel Cells (Auto) 5.0 Urine Bacteria (Auto) 1+ Urine Mucus Few Urine Yeast (Budding) 1+ Blood Type A POSITIVE Antibody Screen Negative 04/12/20 04/12/20 06:56 06:56 WBC 7.7 RBC 3.56 L Hgb 9.2 L Hct 28.6 L MCV 80 MCH 26 L MCHC 32 RDW 15.0 Plt Count 294 Lymph % (Auto) [place] % (Auto) Eos % (Auto) Baso % (Auto) Lymph # (Auto) [place] # (Auto) Eos # (Auto) Baso # (Auto) Seg Neutrophils % Seg Neutrophils # D-Dimer Sodium 139 Potassium 3.6 Chloride 108.7 H Carbon Dioxide 18 L Anion Gap 16 BUN 5 L Creatinine 0.5 L Estimated GFR > 60 BUN/Creatinine Ratio 10 Glucose 93 Calcium 8.2 L Ferritin Total Bilirubin AST ALT Alkaline Phosphatase Lactate Dehydrogenase C-Reactive Protein Total Protein Albumin Albumin/Globulin Ratio Urine Color Urine Turbidity Urine pH Ur Specific [place] Urine Protein Urine Glucose (UA) Urine Ketones Urine Blood Urine Nitrite Ur Reducing Substances Urine Bilirubin Urine Ictotest Urine Urobilinogen Ur Leukocyte Esterase Urine WBC (Auto) Urine RBC (Auto) U Epithel Cells (Auto) Urine Bacteria (Auto) Urine Mucus Urine Yeast (Budding) Blood Type Antibody Screen
[2020-04-12] MEDS: BUDESONIDE 0.5 MG/2 ML NEBU IH SCH ×2 (09:33→20:21)
[2020-04-12] MEDS: ARFORMOTEROL 15 MCG/2 ML NEBU IH SCH ×2 (09:33→20:21)
[2020-04-12] MEDS: PRENATAL VIT27-FE FUMARATE-FOLIC ACID VIT TAB PO SCH (10:17)
--- NOTE | 2020-04-12 11:22 | Progress Note ---
Assessment and Plan Cultures: Blood culture 04/09/2020 no growth today SARS CoV2 PCR positive SARS CoV2 IgG negative Assessment: 25 years old female with history of asthma, thalassemia carrier currently with 34 weeks of admitted on 04/09/2020 secondary to a week history of generalized malaise, body aches, cough and shortness of breath as well as 2 days of irregular contractions: #Severe sepsis: With tachycardia, tachypnea, hypoxia likely due to bilateral pneumonia. #Severe COVID pneumonia: Chest x-ray with bilateral multifocal pneumonia. Inflammatory markers elevated. Markers improving. Ferritin normal. Procalcitonin 0.4. ? Slightly up will consider a bacterial component. #Acute hypoxemic respiratory failure: Initial O2 sat dropped to 89%. Oxygenation improving. Currently on high flow severe oxygen 25%. #: 34 weeks. Recommendations: - Continue dexamethasone for 10 days - Continue remdesivir x 5 days -day 3 of 5, usually will start remdesivir after confirmation of COVID-19, unfortunately patient is hypoxic and - SARS-CoV-2 IgG negative, patient may benefit from Covid convalescent plasma if hypoxia does not get better, currently improving - Monitor inflammatory markers - ferritin, Ddimer, CRP, LDH every 48 hours - ordered today - Continue ceftriaxone for 5 days and azithromycin for 3 days - Monitor liver function test on Remdesivir - Continue anticoagulation per System Protocol - Prone positioning as possible - Pulmonary on board - Close monitoring - Patient complaining of lower back pain today and remains tachycardic, will order lower extremity ultrasound rule out DVT, and if symptoms continue please obtain CTA rule out PE All laboratory, cultures and imaging were reviewed. Patient is at risk of deterioration, consider transferring to tertiary facility with ECMO if clinical decompensation Will follow Charlee Ruth MD Infectious Diseases [employer] [facility] M [phone] O [phone] Subjective Date of service: 04/12/20 Principal diagnosis: Suspected COVID-19, Bilateral Pneumonia, IUP at 34 wks Interval history: Patient reports lower back pain. Remains on HFNC 25% no fever, shortness of breath better. Tachycardic on monitor. Objective - Exam Narrative Exam: General appearance: Alert in NAD pleasant Eyes: anicteric sclerae, moist conjunctivae; no lid-lag; PERRLA HENT: Normocephalic, Atraumatic; normal external ears, nares open, oropharynx clear Neck: supple, tracheal midline, no JVD Lungs: Bibasilar scattered crackles CV: Tachycardic Abdomen: Soft, non-tender; uterus Extremities: no edema, no cyanosis Skin: No rash. Psych: no agitated Neuro: alert and oriented x 3. Moving all extermities - Constitutional Vitals: Vital Signs Temp Pulse Resp BP Pulse Ox 98.2 F 107 H 24 99/55 94 04/12/20 08:49 04/12/20 11:21 04/12/20 08:49 04/12/20 08:57 04/12/20 11:21 Temperature -Last 24 Hours Temperature 98.2 F Temperature 98.0 F Temperature 97.8 F Temperature 97.8 F Temperature 98.3 F Temperature 98.1 F - Labs CBC & Chem 7: 04/12/20 06:56 04/12/20 06:56 Labs: Abnormal lab results 04/10/20 04/11/20 04/11/20 Range/Units 15:16 11:08 11:08 RBC (3.65-5.03) M/mm3 Hgb 9.9 L (10.1-14.3) gm/dl Hct (30.3-42.9) % MCH 27 L (28-32) pg Lymph % (Auto) 12.4 L (13.4-35.0) % Lymph # (Auto) 1.0 L (1.2-5.4) K/mm3 Seg Neutrophils % 80.7 H (40.0-70.0) % D-Dimer 413.22 H (0-234) ng/mlDDU Chloride (98-107) mmol/L Carbon Dioxide (22-30) mmol/L BUN (7-17) mg/dL Creatinine (0.6-1.2) mg/dL Calcium (8.4-10.2) mg/dL Alkaline Phosphatase (35-129) units/L Lactate Dehydrogenase (91-180) units/L C-Reactive Protein (0.00-1.30) mg/dL Albumin (3.9-5) g/dL Urine WBC (Auto) (0.0-6.0) /HPF Coronavirus (PCR) Positive A (Negative) 04/11/20 04/11/20 04/12/20 Range/Units 11:08 Unknown 06:56 RBC 3.56 L (3.65-5.03) M/mm3 Hgb 9.2 L (10.1-14.3) gm/dl Hct 28.6 L (30.3-42.9) % MCH 26 L (28-32) pg Lymph % (Auto) (13.4-35.0) % Lymph # (Auto) (1.2-5.4) K/mm3 Seg Neutrophils % (40.0-70.0) % D-Dimer (0-234) ng/mlDDU Chloride 108.1 H (98-107) mmol/L Carbon Dioxide 16 L (22-30) mmol/L BUN 4 L (7-17) mg/dL Creatinine 0.5 L (0.6-1.2) mg/dL Calcium (8.4-10.2) mg/dL Alkaline Phosphatase 178 H (35-129) units/L Lactate Dehydrogenase 256 H (91-180) units/L C-Reactive Protein 4.40 H (0.00-1.30) mg/dL Albumin 2.7 L (3.9-5) g/dL Urine WBC (Auto) 8.0 H (0.0-6.0) /HPF Coronavirus (PCR) (Negative) 04/12/20 Range/Units 06:56 RBC (3.65-5.03) M/mm3 Hgb (10.1-14.3) gm/dl Hct (30.3-42.9) % MCH (28-32) pg Lymph % (Auto) (13.4-35.0) % Lymph # (Auto) (1.2-5.4) K/mm3 Seg Neutrophils % (40.0-70.0) % D-Dimer (0-234) ng/mlDDU Chloride 108.7 H (98-107) mmol/L Carbon Dioxide 18 L (22-30) mmol/L BUN 5 L (7-17) mg/dL Creatinine 0.5 L (0.6-1.2) mg/dL Calcium 8.2 L (8.4-10.2) mg/dL Alkaline Phosphatase (35-129) units/L Lactate Dehydrogenase (91-180) units/L C-Reactive Protein (0.00-1.30) mg/dL Albumin (3.9-5) g/dL Urine WBC (Auto) (0.0-6.0) /HPF Coronavirus (PCR) (Negative)
--- NOTE | 2020-04-12 13:09 | Progress Note ---
Assessment and Plan 25 y/o female, 34wks admitted with dyspnea on exertion and tachypnea with abnormal CXR, concern for COVID 19 pneumonia. 04/12/2020: COVID positive. On Remdesivir and steroids. Agree with consenting for Convalescent plasma if oxygenation gets worse. Will continue to follow closely. Continue asthma therapy. Incentive alek to bedside and hepa filter in room if possible. If she starts to decompensate, I do not disagree with transfer. Currently our bed situation is better, at least for now, but no acute indication to transfer to our step down or ICU as of right now. Current use of HFNC is for tachypnea, not hypoxemia. Agree with VTE work up being done by ID. 04/11/2020: Follow up COVID test. Continue supplemental oxygen and wean for sats >88% and comfort. Continue steroid therapy. Appreciate ID help. Continue asthma therapy. 1. Agree with COVID 19 rule out 2. Would start patient on inhaled steroid therapy as well as inhaled long acting beta agonist. Spoke with RT for NICU who is covering the mother baby floor as well. Patient was actually satting 93% on room air but was just very tachypnic. They suggest Vapotherm to help with her work of breathing which I do not disagree with. Please keep in mind this was changed not secondary to desaturation but to improve work of breathing. 3. Agree with IV steroids. Assuming the increased dosage is secondary to 4. Please limit IVF's, we like to run these patients on the dry side as increased or execessive volume could worsen hypoxemia 5. likely not able to prone 6. Guarded prognosis. Spoke with OB attending over the phone, current bed status in IMCU and ICU is not good. Unable to take patient to either unit right now secondary to staffing. If she becomes acutely ill and requires more oxygen then will need transfer to another facility unless our staffing can be improved. Guarded prognosis. Subjective Date of service: 04/12/20 Principal diagnosis: Suspected COVID-19, Bilateral Pneumonia, IUP at 34 wks Interval history: No acute events. COVID test is positive as suspected. Currently on REmdesivier. Oxygen requirement has luckily not increased. Reviewed ID notes this am. Objective Vital Signs - 12hr 04/12/20 04/12/20 04/12/20 01:07 01:12 01:17 Temperature Pulse Rate 93 H 97 H 101 H Respiratory Rate Blood Pressure Blood Pressure [Right] O2 Sat by Pulse 97 98 97 Oximetry 04/12/20 04/12/20 04/12/20 01:22 01:26 01:38 Temperature Pulse Rate 98 H 89 111 H Respiratory Rate Blood Pressure Blood Pressure [Right] O2 Sat by Pulse 97 82 L 92 Oximetry 04/12/20 04/12/20 04/12/20 01:43 01:48 01:53 Temperature Pulse Rate 94 H 93 H 87 Respiratory Rate Blood Pressure Blood Pressure [Right] O2 Sat by Pulse 95 95 96 Oximetry 04/12/20 04/12/20 04/12/20 01:58 02:00 02:03 Temperature Pulse Rate 96 H 87 Respiratory Rate Blood Pressure Blood Pressure [Right] O2 Sat by Pulse 95 97 95 Oximetry 04/12/20 04/12/20 04/12/20 02:08 02:13 02:18 Temperature Pulse Rate 88 84 84 Respiratory Rate Blood Pressure Blood Pressure [Right] O2 Sat by Pulse 95 95 96 Oximetry 04/12/20 04/12/20 04/12/20 02:23 02:28 02:33 Temperature Pulse Rate 88 89 84 Respiratory Rate Blood Pressure Blood Pressure [Right] O2 Sat by Pulse 96 96 97 Oximetry 04/12/20 04/12/20 04/12/20 02:38 02:43 02:48 Temperature Pulse Rate 95 H 90 90 Respiratory Rate Blood Pressure Blood Pressure [Right] O2 Sat by Pulse 96 96 97 Oximetry 04/12/20 04/12/20 04/12/20 02:53 02:57 02:58 Temperature Pulse Rate 85 82 87 Respiratory Rate Blood Pressure 97/55 Blood Pressure [Right] O2 Sat by Pulse 97 97 Oximetry 04/12/20 04/12/20 04/12/20 03:03 03:08 03:13 Temperature Pulse Rate 86 87 86 Respiratory Rate Blood Pressure Blood Pressure [Right] O2 Sat by Pulse 96 97 98 Oximetry 04/12/20 04/12/20 04/12/20 03:15 03:18 03:23 Temperature 98.0 F Pulse Rate 90 86 Respiratory Rate Blood Pressure Blood Pressure [Right] O2 Sat by Pulse 97 97 Oximetry 04/12/20 04/12/20 04/12/20 03:28 03:33 03:38 Temperature Pulse Rate 88 85 89 Respiratory Rate Blood Pressure Blood Pressure [Right] O2 Sat by Pulse 97 97 96 Oximetry 04/12/20 04/12/20 04/12/20 03:43 03:48 03:53 Temperature Pulse Rate 89 89 101 H Respiratory Rate Blood Pressure Blood Pressure [Right] O2 Sat by Pulse 96 96 96 Oximetry 04/12/20 04/12/20 04/12/20 03:58 04:03 04:08 Temperature Pulse Rate 81 86 85 Respiratory Rate Blood Pressure Blood Pressure [Right] O2 Sat by Pulse 96 96 96 Oximetry 04/12/20 04/12/20 04/12/20 04:13 04:18 04:23 Temperature Pulse Rate 84 85 94 H Respiratory Rate Blood Pressure Blood Pressure [Right] O2 Sat by Pulse 96 95 96 Oximetry 04/12/20 04/12/20 04/12/20 04:28 04:33 04:38 Temperature Pulse Rate 82 85 83 Respiratory Rate Blood Pressure Blood Pressure [Right] O2 Sat by Pulse 96 96 95 Oximetry 04/12/20 04/12/20 04/12/20 04:43 04:48 04:53 Temperature Pulse Rate 81 86 87 Respiratory Rate Blood Pressure Blood Pressure [Right] O2 Sat by Pulse 96 96 95 Oximetry 04/12/20 04/12/20 04/12/20 04:57 04:58 05:03 Temperature Pulse Rate 86 92 H 80 Respiratory Rate Blood Pressure 100/58 Blood Pressure [Right] O2 Sat by Pulse 95 96 Oximetry 04/12/20 04/12/20 04/12/20 05:08 05:13 05:18 Temperature Pulse Rate 86 86 86 Respiratory Rate Blood Pressure Blood Pressure [Right] O2 Sat by Pulse 95 95 95 Oximetry 04/12/20 04/12/20 04/12/20 05:23 05:28 05:33 Temperature Pulse Rate 86 86 102 H Respiratory Rate Blood Pressure Blood Pressure [Right] O2 Sat by Pulse 95 96 95 Oximetry 04/12/20 04/12/20 04/12/20 05:38 05:43 05:48 Temperature Pulse Rate 91 H 92 H 82 Respiratory Rate Blood Pressure Blood Pressure [Right] O2 Sat by Pulse 96 96 96 Oximetry 04/12/20 04/12/20 04/12/20 05:53 05:58 06:03 Temperature Pulse Rate 87 84 94 H Respiratory Rate Blood Pressure Blood Pressure [Right] O2 Sat by Pulse 95 96 98 Oximetry 04/12/20 04/12/20 04/12/20 06:08 06:13 06:18 Temperature Pulse Rate 97 H 85 97 H Respiratory Rate Blood Pressure Blood Pressure [Right] O2 Sat by Pulse 95 95 96 Oximetry 04/12/20 04/12/20 04/12/20 06:23 06:28 06:33 Temperature Pulse Rate 103 H 96 H 89 Respiratory Rate Blood Pressure Blood Pressure [Right] O2 Sat by Pulse 97 98 97 Oximetry 04/12/20 04/12/20 04/12/20 06:38 06:43 06:48 Temperature Pulse Rate 99 H 92 H 90 Respiratory Rate Blood Pressure Blood Pressure [Right] O2 Sat by Pulse 96 97 97 Oximetry 04/12/20 04/12/20 04/12/20 06:53 06:57 06:58 Temperature Pulse Rate 89 87 89 Respiratory Rate Blood Pressure 114/59 Blood Pressure [Right] O2 Sat by Pulse 97 96 Oximetry 04/12/20 04/12/20 04/12/20 07:03 07:08 07:13 Temperature Pulse Rate 86 104 H 91 H Respiratory Rate Blood Pressure Blood Pressure [Right] O2 Sat by Pulse 97 92 96 Oximetry 04/12/20 04/12/20 04/12/20 07:18 07:23 07:26 Temperature Pulse Rate 103 H 89 109 H Respiratory Rate Blood Pressure Blood Pressure [Right] O2 Sat by Pulse 96 95 88 Oximetry 04/12/20 04/12/20 04/12/20 07:28 07:33 07:38 Temperature Pulse Rate 84 89 95 H Respiratory Rate Blood Pressure Blood Pressure [Right] O2 Sat by Pulse 96 96 96 Oximetry 04/12/20 04/12/20 04/12/20 07:43 07:48 07:53 Temperature Pulse Rate 86 100 H 109 H Respiratory Rate Blood Pressure Blood Pressure [Right] O2 Sat by Pulse 97 96 95 Oximetry 04/12/20 04/12/20 04/12/20 07:58 08:03 08:08 Temperature Pulse Rate 90 86 90 Respiratory Rate Blood Pressure Blood Pressure [Right] O2 Sat by Pulse 96 95 93 Oximetry 04/12/20 04/12/20 04/12/20 08:13 08:18 08:23 Temperature Pulse Rate 88 85 89 Respiratory Rate Blood Pressure Blood Pressure [Right] O2 Sat by Pulse 94 95 94 Oximetry 04/12/20 04/12/20 04/12/20 08:28 08:33 08:38 Temperature Pulse Rate 89 86 92 H Respiratory Rate Blood Pressure Blood Pressure [Right] O2 Sat by Pulse 94 94 93 Oximetry 04/12/20 04/12/20 04/12/20 08:43 08:48 08:49 Temperature 98.2 F Pulse Rate 91 H 90 96 H Respiratory 24 Rate Blood Pressure Blood Pressure 100/59 [Right] O2 Sat by Pulse 94 96 Oximetry 04/12/20 04/12/20 04/12/20 08:50 08:53 08:57 Temperature Pulse Rate 85 91 H 87 Respiratory Rate Blood Pressure 100/59 99/55 Blood Pressure [Right] O2 Sat by Pulse 96 Oximetry 04/12/20 04/12/20 04/12/20 08:58 09:03 09:08 Temperature Pulse Rate 92 H 93 H 89 Respiratory Rate Blood Pressure Blood Pressure [Right] O2 Sat by Pulse 97 97 97 Oximetry 04/12/20 04/12/20 04/12/20 09:13 09:18 09:23 Temperature Pulse Rate 103 H 91 H 100 H Respiratory Rate Blood Pressure Blood Pressure [Right] O2 Sat by Pulse 97 96 99 Oximetry 04/12/20 04/12/20 04/12/20 09:28 09:33 09:38 Temperature Pulse Rate 95 H 94 H 93 H Respiratory Rate Blood Pressure Blood Pressure [Right] O2 Sat by Pulse 98 99 98 Oximetry 04/12/20 04/12/20 04/12/20 09:43 09:48 09:53 Temperature Pulse Rate 92 H 99 H 95 H Respiratory Rate Blood Pressure Blood Pressure [Right] O2 Sat by Pulse 99 98 97 Oximetry 04/12/20 04/12/20 04/12/20 09:58 10:03 10:05 Temperature Pulse Rate 108 H 107 H 99 H Respiratory Rate Blood Pressure Blood Pressure [Right] O2 Sat by Pulse 98 96 70 L Oximetry 04/12/20 04/12/20 04/12/20 10:08 10:13 10:18 Temperature Pulse Rate 93 H 87 102 H Respiratory Rate Blood Pressure Blood Pressure [Right] O2 Sat by Pulse 96 98 98 Oximetry 04/12/20 04/12/20 04/12/20 10:23 10:28 10:31 Temperature Pulse Rate 94 H 103 H 95 H Respiratory Rate Blood Pressure Blood Pressure [Right] O2 Sat by Pulse 98 97 98 Oximetry 04/12/20 04/12/20 04/12/20 10:36 10:41 10:46 Temperature Pulse Rate 101 H 87 94 H Respiratory Rate Blood Pressure Blood Pressure [Right] O2 Sat by Pulse 98 98 98 Oximetry 04/12/20 04/12/20 04/12/20 10:50 10:51 10:55 Temperature Pulse Rate 100 H 96 H 100 H Respiratory Rate Blood Pressure Blood Pressure [Right] O2 Sat by Pulse 87 97 94 Oximetry 04/12/20 04/12/20 04/12/20 10:56 11:01 11:02 Temperature Pulse Rate 108 H 125 H 116 H Respiratory Rate Blood Pressure Blood Pressure [Right] O2 Sat by Pulse 94 94 94 Oximetry 04/12/20 04/12/20 04/12/20 11:06 11:08 11:11 Temperature Pulse Rate 111 H 92 H 102 H Respiratory Rate Blood Pressure Blood Pressure [Right] O2 Sat by Pulse 94 94 95 Oximetry 04/12/20 04/12/20 04/12/20 11:15 11:16 11:21 Temperature Pulse Rate 106 H 111 H 100 H Respiratory Rate Blood Pressure Blood Pressure [Right] O2 Sat by Pulse 94 95 97 Oximetry 04/12/20 04/12/20 04/12/20 11:26 11:30 11:31 Temperature Pulse Rate 106 H 104 H 110 H Respiratory Rate Blood Pressure 112/61 Blood Pressure [Right] O2 Sat by Pulse 94 94 94 Oximetry 04/12/20 04/12/20 04/12/20 11:36 11:38 11:41 Temperature Pulse Rate 102 H 112 H 86 Respiratory Rate Blood Pressure Blood Pressure [Right] O2 Sat by Pulse 97 94 96 Oximetry 04/12/20 04/12/20 04/12/20 11:43 11:46 11:51 Temperature Pulse Rate 96 H 87 90 Respiratory Rate Blood Pressure Blood Pressure [Right] O2 Sat by Pulse 94 95 98 Oximetry 04/12/20 04/12/20 04/12/20 11:56 12:01 12:06 Temperature Pulse Rate 97 H 88 100 H Respiratory Rate Blood Pressure Blood Pressure [Right] O2 Sat by Pulse 97 97 98 Oximetry 04/12/20 04/12/20 04/12/20 12:11 12:16 12:21 Temperature Pulse Rate 89 91 H 91 H Respiratory Rate Blood Pressure Blood Pressure [Right] O2 Sat by Pulse 98 99 97 Oximetry 04/12/20 04/12/20 04/12/20 12:26 12:31 12:32 Temperature Pulse Rate 86 82 83 Respiratory Rate Blood Pressure 109/62 Blood Pressure [Right] O2 Sat by Pulse 98 98 Oximetry 04/12/20 04/12/20 04/12/20 12:36 12:41 12:46 Temperature Pulse Rate 95 H 83 87 Respiratory Rate Blood Pressure Blood Pressure [Right] O2 Sat by Pulse 98 98 98 Oximetry 04/12/20 04/12/20 04/12/20 12:51 12:56 13:01 Temperature Pulse Rate 85 78 82 Respiratory Rate Blood Pressure Blood Pressure [Right] O2 Sat by Pulse 99 99 99 Oximetry CBC and BMP: 04/12/20 06:56 04/12/20 06:56 ABG, PT/INR, D-dimer: ABG ABG pH 7.38 (7.320-7.450) 04/10/20 06:45 POC ABG pCO2 25.8 mmHg (32.0-48.0) L 04/10/20 06:45 POC ABG pO2 72.1 mmHg (83-108) L 04/10/20 06:45 POC ABG HCO3 15.0 04/10/20 06:45 PT/INR, D-dimer D-Dimer 413.22 ng/mlDDU (0-234) H 04/11/20 11:08 Abnormal lab findings: Abnormal Labs 04/09/20 04/09/20 04/09/20 18:23 18:23 18:23 RBC Hgb Hct MCH 26 L Lymph % (Auto) 13.2 L Lymph # (Auto) 1.0 L Seg Neutrophils % 80.5 H D-Dimer 896.32 H POC ABG pCO2 POC ABG pO2 ABG Hemoglobin ABG Sodium ABG Potassium Sodium 134 L Potassium 3.1 L Chloride Carbon Dioxide 17 L BUN 5 L Creatinine Calcium Alkaline Phosphatase 180 H Lactate Dehydrogenase C-Reactive Protein Albumin 3.1 L Arterial Blood Ionized Calcium Urine WBC (Auto) Coronavirus (PCR) 04/09/20 04/09/20 04/09/20 18:23 20:56 20:56 RBC Hgb Hct MCH Lymph % (Auto) Lymph # (Auto) Seg Neutrophils % D-Dimer 792.89 H POC ABG pCO2 POC ABG pO2 ABG Hemoglobin ABG Sodium ABG Potassium Sodium Potassium Chloride Carbon Dioxide BUN Creatinine Calcium Alkaline Phosphatase Lactate Dehydrogenase 244 H 224 H C-Reactive Protein 5.30 H 5.00 H Albumin Arterial Blood Ionized Calcium Urine WBC (Auto) Coronavirus (PCR) 04/10/20 04/10/20 04/11/20 06:45 15:16 11:08 RBC Hgb 9.9 L Hct MCH 27 L Lymph % (Auto) 12.4 L Lymph # (Auto) 1.0 L Seg Neutrophils % 80.7 H D-Dimer POC ABG pCO2 25.8 L POC ABG pO2 72.1 L ABG Hemoglobin 9.7 L ABG Sodium 133.3 L ABG Potassium 2.4 L Sodium Potassium Chloride Carbon Dioxide BUN Creatinine Calcium Alkaline Phosphatase Lactate Dehydrogenase C-Reactive Protein Albumin Arterial Blood Ionized Calcium 4.5 L Urine WBC (Auto) Coronavirus (PCR) Positive A 04/11/20 04/11/20 04/11/20 11:08 11:08 Unknown RBC Hgb Hct MCH Lymph % (Auto) Lymph # (Auto) Seg Neutrophils % D-Dimer 413.22 H POC ABG pCO2 POC ABG pO2 ABG Hemoglobin ABG Sodium ABG Potassium Sodium Potassium Chloride 108.1 H Carbon Dioxide 16 L BUN 4 L Creatinine 0.5 L Calcium Alkaline Phosphatase 178 H Lactate Dehydrogenase 256 H C-Reactive Protein 4.40 H Albumin 2.7 L Arterial Blood Ionized Calcium Urine WBC (Auto) 8.0 H Coronavirus (PCR) 04/12/20 04/12/20 06:56 06:56 RBC 3.56 L Hgb 9.2 L Hct 28.6 L MCH 26 L Lymph % (Auto) Lymph # (Auto) Seg Neutrophils % D-Dimer POC ABG pCO2 POC ABG pO2 ABG Hemoglobin ABG Sodium ABG Potassium Sodium Potassium Chloride 108.7 H Carbon Dioxide 18 L BUN 5 L Creatinine 0.5 L Calcium 8.2 L Alkaline Phosphatase Lactate Dehydrogenase C-Reactive Protein Albumin Arterial Blood Ionized Calcium Urine WBC (Auto) Coronavirus (PCR) [facility] notes reviewed: RT
--- NOTE | 2020-04-12 13:53 | Vascular Lab Report ---
DUPLEX DOPPLER LOWER EXTREMITY VEINS, BILATERAL INDICATION / CLINICAL INFORMATION: Please rule out DVT. TECHNIQUE: Duplex doppler imaging was performed through the veins of both lower extremities using venous radha itzel and other maneuvers. COMPARISON: None available. FINDINGS: RIGHT COMMON FEMORAL VEIN: Negative. RIGHT FEMORAL VEIN: Negative. RIGHT POPLITEAL VEIN: Negative. RIGHT CALF VEINS: Negative. LEFT COMMON FEMORAL VEIN: Negative. LEFT FEMORAL VEIN: Negative. LEFT POPLITEAL VEIN: Negative. LEFT CALF VEINS: Negative. ADDITIONAL FINDINGS: None. IMPRESSION: 1. No sonographic evidence for DVT in either lower extremity. Signer Name: Dixon Hussein MD Signed: 04/12/2020 1:49 PM Workstation Name: [id number]
[2020-04-12 14:17] LABS: C-Reactive Protein 1.6 mg/dL (0.00-1.30)
--- NOTE | 2020-04-12 15:03 | Progress Note ---
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 We been consulted to assist in management as she is noted to be tachypneic requiring 7 L of oxygen. On arrival the patient reports shortness of breath worse with exertion. She is 3 para 10 and does not recall having this severe shortness of breath during her other pregnancies. During our conversation she is noted to have 98% saturation while off the oxygen as she states that the high flow is uncomfortable to put in. Her spouse was in the room states that she has not been able to keep any food down that she does not like the taste of food she denies any loss of sensation of taste or smell at this time. She was not clear if she has nasal congestion but states that the force of the oxygen was more of a problem. She denies any fever nausea vomiting or diarrhea except as is associated with her normal . Chest x-ray concerning for bilateral infiltrates in the bases 04/11: Continue supportive care wean oxygen as tolerated. Follow results of the COVID-19. Covid 19 antibodies are negative at this time. 04/12 Assessment and plan: Severe sepsis: With tachycardia, tachypnea, hypoxia likely due to bilateral pneumonia. ID note reviewed Continue ceftriaxone and Zithromax per ID recommendations as procalcitonin is slightly elevated Severe COVID pneumonia: Chest x-ray with bilateral multifocal pneumonia. Monitor inflammatory markers - ferritin, Ddimer, CRP, LDH every 48 hours Continue remdesivir and Decadron Acute hypoxemic respiratory failure: Initial O2 sat dropped to 89%. . Currently on high flow oxygen 25%. Pulmonary note reviewed and appreciated #: 34 weeks. - Continue ceftriaxone for 5 days and azithromycin for 3 days - Monitor liver function test on Remdesivir - Continue anticoagulation per System Protocol - Prone positioning as possible - Pulmonary on board Objective - Constitutional Vitals: Vital Signs - 12hr 04/12/20 04/12/20 04/12/20 03:08 03:13 03:15 Temperature 98.0 F Pulse Rate 87 86 Respiratory Rate Blood Pressure Blood Pressure [Right] O2 Sat by Pulse 97 98 Oximetry 04/12/20 04/12/20 04/12/20 03:18 03:23 03:28 Temperature Pulse Rate 90 86 88 Respiratory Rate Blood Pressure Blood Pressure [Right] O2 Sat by Pulse 97 97 97 Oximetry 04/12/20 04/12/20 04/12/20 03:33 03:38 03:43 Temperature Pulse Rate 85 89 89 Respiratory Rate Blood Pressure Blood Pressure [Right] O2 Sat by Pulse 97 96 96 Oximetry 04/12/20 04/12/20 04/12/20 03:48 03:53 03:58 Temperature Pulse Rate 89 101 H 81 Respiratory Rate Blood Pressure Blood Pressure [Right] O2 Sat by Pulse 96 96 96 Oximetry 04/12/20 04/12/20 04/12/20 04:03 04:08 04:13 Temperature Pulse Rate 86 85 84 Respiratory Rate Blood Pressure Blood Pressure [Right] O2 Sat by Pulse 96 96 96 Oximetry 04/12/20 04/12/20 04/12/20 04:18 04:23 04:28 Temperature Pulse Rate 85 94 H 82 Respiratory Rate Blood Pressure Blood Pressure [Right] O2 Sat by Pulse 95 96 96 Oximetry 04/12/20 04/12/20 04/12/20 04:33 04:38 04:43 Temperature Pulse Rate 85 83 81 Respiratory Rate Blood Pressure Blood Pressure [Right] O2 Sat by Pulse 96 95 96 Oximetry 04/12/20 04/12/20 04/12/20 04:48 04:53 04:57 Temperature Pulse Rate 86 87 86 Respiratory Rate Blood Pressure 100/58 Blood Pressure [Right] O2 Sat by Pulse 96 95 Oximetry 04/12/20 04/12/20 04/12/20 04:58 05:03 05:08 Temperature Pulse Rate 92 H 80 86 Respiratory Rate Blood Pressure Blood Pressure [Right] O2 Sat by Pulse 95 96 95 Oximetry 04/12/20 04/12/20 04/12/20 05:13 05:18 05:23 Temperature Pulse Rate 86 86 86 Respiratory Rate Blood Pressure Blood Pressure [Right] O2 Sat by Pulse 95 95 95 Oximetry 04/12/20 04/12/20 04/12/20 05:28 05:33 05:38 Temperature Pulse Rate 86 102 H 91 H Respiratory Rate Blood Pressure Blood Pressure [Right] O2 Sat by Pulse 96 95 96 Oximetry 04/12/20 04/12/20 04/12/20 05:43 05:48 05:53 Temperature Pulse Rate 92 H 82 87 Respiratory Rate Blood Pressure Blood Pressure [Right] O2 Sat by Pulse 96 96 95 Oximetry 04/12/20 04/12/20 04/12/20 05:58 06:03 06:08 Temperature Pulse Rate 84 94 H 97 H Respiratory Rate Blood Pressure Blood Pressure [Right] O2 Sat by Pulse 96 98 95 Oximetry 04/12/20 04/12/20 04/12/20 06:13 06:18 06:23 Temperature Pulse Rate 85 97 H 103 H Respiratory Rate Blood Pressure Blood Pressure [Right] O2 Sat by Pulse 95 96 97 Oximetry 04/12/20 04/12/20 04/12/20 06:28 06:33 06:38 Temperature Pulse Rate 96 H 89 99 H Respiratory Rate Blood Pressure Blood Pressure [Right] O2 Sat by Pulse 98 97 96 Oximetry 04/12/20 04/12/20 04/12/20 06:43 06:48 06:53 Temperature Pulse Rate 92 H 90 89 Respiratory Rate Blood Pressure Blood Pressure [Right] O2 Sat by Pulse 97 97 97 Oximetry 04/12/20 04/12/20 04/12/20 06:57 06:58 07:03 Temperature Pulse Rate 87 89 86 Respiratory Rate Blood Pressure 114/59 Blood Pressure [Right] O2 Sat by Pulse 96 97 Oximetry 04/12/20 04/12/20 04/12/20 07:08 07:13 07:18 Temperature Pulse Rate 104 H 91 H 103 H Respiratory Rate Blood Pressure Blood Pressure [Right] O2 Sat by Pulse 92 96 96 Oximetry 04/12/20 04/12/20 04/12/20 07:23 07:26 07:28 Temperature Pulse Rate 89 109 H 84 Respiratory Rate Blood Pressure Blood Pressure [Right] O2 Sat by Pulse 95 88 96 Oximetry 04/12/20 04/12/20 04/12/20 07:33 07:38 07:43 Temperature Pulse Rate 89 95 H 86 Respiratory Rate Blood Pressure Blood Pressure [Right] O2 Sat by Pulse 96 96 97 Oximetry 04/12/20 04/12/20 04/12/20 07:48 07:53 07:58 Temperature Pulse Rate 100 H 109 H 90 Respiratory Rate Blood Pressure Blood Pressure [Right] O2 Sat by Pulse 96 95 96 Oximetry 04/12/20 04/12/20 04/12/20 08:03 08:08 08:13 Temperature Pulse Rate 86 90 88 Respiratory Rate Blood Pressure Blood Pressure [Right] O2 Sat by Pulse 95 93 94 Oximetry 04/12/20 04/12/20 04/12/20 08:18 08:23 08:28 Temperature Pulse Rate 85 89 89 Respiratory Rate Blood Pressure Blood Pressure [Right] O2 Sat by Pulse 95 94 94 Oximetry 04/12/20 04/12/20 04/12/20 08:33 08:38 08:43 Temperature Pulse Rate 86 92 H 91 H Respiratory Rate Blood Pressure Blood Pressure [Right] O2 Sat by Pulse 94 93 94 Oximetry 04/12/20 04/12/20 04/12/20 08:48 08:49 08:50 Temperature 98.2 F Pulse Rate 90 96 H 85 Respiratory 24 Rate Blood Pressure 100/59 Blood Pressure 100/59 [Right] O2 Sat by Pulse 96 Oximetry 04/12/20 04/12/20 04/12/20 08:53 08:57 08:58 Temperature Pulse Rate 91 H 87 92 H Respiratory Rate Blood Pressure 99/55 Blood Pressure [Right] O2 Sat by Pulse 96 97 Oximetry 04/12/20 04/12/20 04/12/20 09:03 09:08 09:13 Temperature Pulse Rate 93 H 89 103 H Respiratory Rate Blood Pressure Blood Pressure [Right] O2 Sat by Pulse 97 97 97 Oximetry 04/12/20 04/12/20 04/12/20 09:18 09:23 09:28 Temperature Pulse Rate 91 H 100 H 95 H Respiratory Rate Blood Pressure Blood Pressure [Right] O2 Sat by Pulse 96 99 98 Oximetry 04/12/20 04/12/20 04/12/20 09:33 09:38 09:43 Temperature Pulse Rate 94 H 93 H 92 H Respiratory Rate Blood Pressure Blood Pressure [Right] O2 Sat by Pulse 99 98 99 Oximetry 04/12/20 04/12/20 04/12/20 09:48 09:53 09:58 Temperature Pulse Rate 99 H 95 H 108 H Respiratory Rate Blood Pressure Blood Pressure [Right] O2 Sat by Pulse 98 97 98 Oximetry 04/12/20 04/12/20 04/12/20 10:03 10:05 10:08 Temperature Pulse Rate 107 H 99 H 93 H Respiratory Rate Blood Pressure Blood Pressure [Right] O2 Sat by Pulse 96 70 L 96 Oximetry 04/12/20 04/12/20 04/12/20 10:13 10:18 10:23 Temperature Pulse Rate 87 102 H 94 H Respiratory Rate Blood Pressure Blood Pressure [Right] O2 Sat by Pulse 98 98 98 Oximetry 04/12/20 04/12/20 04/12/20 10:28 10:31 10:36 Temperature Pulse Rate 103 H 95 H 101 H Respiratory Rate Blood Pressure Blood Pressure [Right] O2 Sat by Pulse 97 98 98 Oximetry 04/12/20 04/12/20 04/12/20 10:41 10:46 10:50 Temperature Pulse Rate 87 94 H 100 H Respiratory Rate Blood Pressure Blood Pressure [Right] O2 Sat by Pulse 98 98 87 Oximetry 04/12/20 04/12/20 04/12/20 10:51 10:55 10:56 Temperature Pulse Rate 96 H 100 H 108 H Respiratory Rate Blood Pressure Blood Pressure [Right] O2 Sat by Pulse 97 94 94 Oximetry 04/12/20 04/12/20 04/12/20 11:01 11:02 11:06 Temperature Pulse Rate 125 H 116 H 111 H Respiratory Rate Blood Pressure Blood Pressure [Right] O2 Sat by Pulse 94 94 94 Oximetry 04/12/20 04/12/20 04/12/20 11:08 11:11 11:15 Temperature Pulse Rate 92 H 102 H 106 H Respiratory Rate Blood Pressure Blood Pressure [Right] O2 Sat by Pulse 94 95 94 Oximetry 04/12/20 04/12/20 04/12/20 11:16 11:21 11:26 Temperature Pulse Rate 111 H 100 H 106 H Respiratory Rate Blood Pressure Blood Pressure [Right] O2 Sat by Pulse 95 97 94 Oximetry 04/12/20 04/12/20 04/12/20 11:30 11:31 11:36 Temperature Pulse Rate 104 H 110 H 102 H Respiratory Rate Blood Pressure 112/61 Blood Pressure [Right] O2 Sat by Pulse 94 94 97 Oximetry 04/12/20 04/12/20 04/12/20 11:38 11:41 11:43 Temperature Pulse Rate 112 H 86 96 H Respiratory Rate Blood Pressure Blood Pressure [Right] O2 Sat by Pulse 94 96 94 Oximetry 04/12/20 04/12/20 04/12/20 11:46 11:51 11:56 Temperature Pulse Rate 87 90 97 H Respiratory Rate Blood Pressure Blood Pressure [Right] O2 Sat by Pulse 95 98 97 Oximetry 04/12/20 04/12/20 04/12/20 12:01 12:06 12:11 Temperature Pulse Rate 88 100 H 89 Respiratory Rate Blood Pressure Blood Pressure [Right] O2 Sat by Pulse 97 98 98 Oximetry 04/12/20 04/12/20 04/12/20 12:16 12:21 12:26 Temperature Pulse Rate 91 H 91 H 86 Respiratory Rate Blood Pressure Blood Pressure [Right] O2 Sat by Pulse 99 97 98 Oximetry 04/12/20 04/12/20 04/12/20 12:31 12:32 12:36 Temperature Pulse Rate 82 83 95 H Respiratory Rate Blood Pressure 109/62 Blood Pressure [Right] O2 Sat by Pulse 98 98 Oximetry 04/12/20 04/12/20 04/12/20 12:41 12:46 12:51 Temperature Pulse Rate 83 87 85 Respiratory Rate Blood Pressure Blood Pressure [Right] O2 Sat by Pulse 98 98 99 Oximetry 04/12/20 04/12/20 04/12/20 12:56 13:01 13:06 Temperature Pulse Rate 78 82 79 Respiratory Rate Blood Pressure Blood Pressure [Right] O2 Sat by Pulse 99 99 98 Oximetry 04/12/20 04/12/20 04/12/20 13:11 13:16 13:21 Temperature Pulse Rate 85 92 H 85 Respiratory Rate Blood Pressure Blood Pressure [Right] O2 Sat by Pulse 98 99 98 Oximetry 04/12/20 04/12/20 04/12/20 13:26 13:31 13:32 Temperature Pulse Rate 79 86 96 H Respiratory Rate Blood Pressure 85/53 Blood Pressure [Right] O2 Sat by Pulse 98 99 Oximetry 04/12/20 04/12/20 04/12/20 13:36 13:41 13:46 Temperature Pulse Rate 86 101 H 80 Respiratory Rate Blood Pressure Blood Pressure [Right] O2 Sat by Pulse 98 99 98 Oximetry 04/12/20 04/12/20 04/12/20 13:51 13:56 14:01 Temperature Pulse Rate 86 87 83 Respiratory Rate Blood Pressure Blood Pressure [Right] O2 Sat by Pulse 99 98 100 Oximetry 04/12/20 04/12/20 04/12/20 14:06 14:11 14:16 Temperature Pulse Rate 91 H 81 92 H Respiratory Rate Blood Pressure Blood Pressure [Right] O2 Sat by Pulse 99 100 99 Oximetry 04/12/20 04/12/20 04/12/20 14:21 14:26 14:31 Temperature Pulse Rate 85 91 H 83 Respiratory Rate Blood Pressure Blood Pressure [Right] O2 Sat by Pulse 100 98 98 Oximetry 04/12/20 04/12/20 04/12/20 14:32 14:36 14:41 Temperature Pulse Rate 99 H 87 86 Respiratory Rate Blood Pressure 92/59 Blood Pressure [Right] O2 Sat by Pulse 98 98 Oximetry 04/12/20 04/12/20 04/12/20 14:46 14:51 14:56 Temperature Pulse Rate 86 80 81 Respiratory Rate Blood Pressure Blood Pressure [Right] O2 Sat by Pulse 98 97 98 Oximetry 04/12/20 15:01 Temperature Pulse Rate 86 Respiratory Rate Blood Pressure Blood Pressure [Right] O2 Sat by Pulse 98 Oximetry General appearance: Present: no acute distress - EENT Eyes: PERRL, EOM intact ENT: hearing intact, clear oral mucosa - Neck Neck: supple - Respiratory Respiratory effort: normal Respiratory: bilateral: CTA, diminished - Cardiovascular Rhythm: regular Heart Sounds: Present: S1 & S2 Extremity abnormal: edema - Gastrointestinal General gastrointestinal: Present: soft, non-tender, other (Protuberant) Rectal Exam: deferred - Genitourinary Female genitourinary: deferred - Integumentary Integumentary: clear - Musculoskeletal Musculoskeletal: strength equal bilaterally - Neurologic Neurologic: no focal deficits - Psychiatric Psychiatric: appropriate mood/affect - Labs CBC & Chem 7: 04/12/20 06:56 04/12/20 06:56 Labs: Abnormal lab results 04/10/20 04/11/20 04/12/20 Range/Units 15:16 Unknown 06:56 RBC 3.56 L (3.65-5.03) M/mm3 Hgb 9.2 L (10.1-14.3) gm/dl Hct 28.6 L (30.3-42.9) % MCH 26 L (28-32) pg D-Dimer (0-234) ng/mlDDU Chloride (98-107) mmol/L Carbon Dioxide (22-30) mmol/L BUN (7-17) mg/dL Creatinine (0.6-1.2) mg/dL Calcium (8.4-10.2) mg/dL Lactate Dehydrogenase (91-180) units/L C-Reactive Protein (0.00-1.30) mg/dL Urine WBC (Auto) 8.0 H (0.0-6.0) /HPF Coronavirus (PCR) Positive A (Negative) 04/12/20 04/12/20 04/12/20 Range/Units 06:56 13:44 13:44 RBC (3.65-5.03) M/mm3 Hgb (10.1-14.3) gm/dl Hct (30.3-42.9) % MCH (28-32) pg D-Dimer 555.67 H (0-234) ng/mlDDU Chloride 108.7 H (98-107) mmol/L Carbon Dioxide 18 L (22-30) mmol/L BUN 5 L (7-17) mg/dL Creatinine 0.5 L (0.6-1.2) mg/dL Calcium 8.2 L (8.4-10.2) mg/dL Lactate Dehydrogenase 263 H (91-180) units/L C-Reactive Protein 1.60 H (0.00-1.30) mg/dL Urine WBC (Auto) (0.0-6.0) /HPF Coronavirus (PCR) (Negative)
[2020-04-12] MEDS: REMDESIVIR 100 MG in SODIUM CHLORIDE 0.9% 250ML 250 ML IV SCH (21:44)
--- NOTE | 2020-04-13 06:38 | Progress Note ---
Assessment and Plan Cultures: Blood culture 04/09/2020 no growth today SARS CoV2 PCR positive SARS CoV2 IgG negative Assessment: 25 years old female with history of asthma, thalassemia carrier currently with 34 weeks of admitted on 04/09/2020 secondary to a week history of generalized malaise, body aches, cough and shortness of breath as well as 2 days of irregular contractions: #Severe sepsis: With tachycardia, tachypnea, hypoxia, improving, likely due to bilateral pneumonia. #Severe COVID pneumonia: Chest x-ray with bilateral multifocal pneumonia. Inflammatory markers elevated. Markers improving. Ferritin normal. Pr ocalcitonin 0.4. ? Slightly up will consider a bacterial component. Venous ultrasound no DVT. #Acute hypoxemic respiratory failure: Initial O2 sat dropped to 89%. Oxygenation improving. Currently on high flow severe oxygen 21%. #: 34 weeks. Recommendations: - Continue dexamethasone for 10 days - Continue remdesivir x 5 days -day 4 of 5 - SARS-CoV-2 IgG negative, patient may benefit from Covid convalescent plasma if hypoxia does not get better, currently improving - Monitor inflammatory markers - ferritin, Ddimer, CRP, LDH every 48 hours - Continue ceftriaxone for 5 days. Completed azithromycin for 3 days - Monitor liver function test on Remdesivir - Continue anticoagulation per System Protocol - Prone positioning as possible - Pulmonary on board - Close monitoring - If hypoxia continues please obtain CTA rule out PE All laboratory, cultures and imaging were reviewed. Patient is at risk of deterioration, consider transferring to tertiary facility with ECMO if clinical decompensation Will follow Charlee Ruth MD Infectious Diseases [employer] [facility] [id number] [phone] O [phone] Subjective Date of service: 04/13/20 Principal diagnosis: Suspected COVID-19, Bilateral Pneumonia, IUP at 34 wks Interval history: Remains on high flow nasal cannula 21%, no fever Objective - Exam Narrative Exam: Physical Exam: reviewed ED and hospitalist notes, limited due to conservation of PPE and decrease risk of transmission. General appearance: limited due to conservation of PPE Eyes: limited due to conservation of PPE HENT: Atraumatic; limited due to conservation of PPE Lungs: limited due to conservation of PPE CV: limited due to conservation of PPE Abdomen: limited due to conservation of PPE Extremities: limited due to conservation of PPE Skin: limited due to conservation of PPE Psych: limited due to conservation of PPE Neuro: limited due to conservation of PPE - Constitutional Vitals: Vital Signs Temp Pulse Resp BP Pulse Ox 98.4 F 82 22 107/63 99 04/12/20 21:55 04/13/20 06:33 04/12/20 21:55 04/13/20 06:32 04/13/20 06:33 Temperature -Last 24 Hours Temperature 98.4 F Temperature 98.0 F Temperature 98.2 F - Labs CBC & Chem 7: 04/12/20 06:56 04/12/20 06:56 Labs: Abnormal lab results 04/10/20 04/12/20 04/12/20 Range/Units 15:16 06:56 06:56 RBC 3.56 L (3.65-5.03) M/mm3 Hgb 9.2 L (10.1-14.3) gm/dl Hct 28.6 L (30.3-42.9) % MCH 26 L (28-32) pg D-Dimer (0-234) ng/mlDDU Chloride 108.7 H (98-107) mmol/L Carbon Dioxide 18 L (22-30) mmol/L BUN 5 L (7-17) mg/dL Creatinine 0.5 L (0.6-1.2) mg/dL Calcium 8.2 L (8.4-10.2) mg/dL Lactate Dehydrogenase (91-180) units/L C-Reactive Protein (0.00-1.30) mg/dL Coronavirus (PCR) Positive A (Negative) 04/12/20 04/12/20 Range/Units 13:44 13:44 RBC (3.65-5.03) M/mm3 Hgb (10.1-14.3) gm/dl Hct (30.3-42.9) % MCH (28-32) pg D-Dimer 555.67 H (0-234) ng/mlDDU Chloride (98-107) mmol/L Carbon Dioxide (22-30) mmol/L BUN (7-17) mg/dL Creatinine (0.6-1.2) mg/dL Calcium (8.4-10.2) mg/dL Lactate Dehydrogenase 263 H (91-180) units/L C-Reactive Protein 1.60 H (0.00-1.30) mg/dL Coronavirus (PCR) (Negative)
--- NOTE | 2020-04-13 08:17 | Progress Note ---
Assessment and Plan A: IUP at 34w5d COVID 19 bilateral pneumonaia, currently on high-flow nasal cannula with room air; clinically improving ID, Pulmonology and Hospitalists following and appreciated Asthma GBS unknown P: Continue supportive care Subjective - Subjective Date of service: 04/13/20 Principal diagnosis: COVID-19, Bilateral Pneumonia, IUP at 34w5d Interval history: Pt reports feeling well this morning and like she "wants to go home soon" She had trouble sleeping overnight because she could not get comfortable. She notes good movement and no obstetric complaints. Accounts Receivable Collector notes reviewed and appreciated. Respiratory therapy notes reviewed, and pt continues to sat well on high flow nasal cannula with room air. Patient reports: movement normal, contractions (irregular ), no new complaints, no loss of fluid, no vaginal bleeding Objective - Vital Signs Vital Signs: Vital Signs - 12hr 04/12/20 04/12/20 04/12/20 20:20 20:21 20:26 Temperature Pulse Rate 86 92 H Pulse Rate [ Anterior Bilateral Throughout] Respiratory Rate Respiratory Rate [Anterior Bilateral Throughout] Blood Pressure Blood Pressure [Right] O2 Sat by Pulse 98 98 100 Oximetry 04/12/20 04/12/20 04/12/20 20:30 20:31 20:32 Temperature Pulse Rate 95 H 96 H Pulse Rate [ 92 H Anterior Bilateral Throughout] Respiratory Rate Respiratory 20 Rate [Anterior Bilateral Throughout] Blood Pressure 104/63 Blood Pressure [Right] O2 Sat by Pulse 99 Oximetry 04/12/20 04/12/20 04/12/20 20:36 20:41 20:46 Temperature Pulse Rate 94 H 94 H 92 H Pulse Rate [ Anterior Bilateral Throughout] Respiratory Rate Respiratory Rate [Anterior Bilateral Throughout] Blood Pressure Blood Pressure [Right] O2 Sat by Pulse 98 98 98 Oximetry 04/12/20 04/12/20 04/12/20 20:51 20:56 21:01 Temperature Pulse Rate 92 H 93 H 89 Pulse Rate [ Anterior Bilateral Throughout] Respiratory Rate Respiratory Rate [Anterior Bilateral Throughout] Blood Pressure Blood Pressure [Right] O2 Sat by Pulse 97 98 99 Oximetry 04/12/20 04/12/20 04/12/20 21:06 21:11 21:16 Temperature Pulse Rate 95 H 91 H 103 H Pulse Rate [ Anterior Bilateral Throughout] Respiratory Rate Respiratory Rate [Anterior Bilateral Throughout] Blood Pressure Blood Pressure [Right] O2 Sat by Pulse 99 99 98 Oximetry 04/12/20 04/12/20 04/12/20 21:17 21:21 21:26 Temperature Pulse Rate 91 H 103 H 93 H Pulse Rate [ Anterior Bilateral Throughout] Respiratory Rate Respiratory Rate [Anterior Bilateral Throughout] Blood Pressure Blood Pressure [Right] O2 Sat by Pulse 93 96 94 Oximetry 04/12/20 04/12/20 04/12/20 21:29 21:31 21:32 Temperature Pulse Rate 91 H 86 89 Pulse Rate [ Anterior Bilateral Throughout] Respiratory Rate Respiratory Rate [Anterior Bilateral Throughout] Blood Pressure 108/57 Blood Pressure [Right] O2 Sat by Pulse 92 97 Oximetry 04/12/20 04/12/20 04/12/20 21:36 21:38 21:41 Temperature Pulse Rate 91 H 95 H 92 H Pulse Rate [ Anterior Bilateral Throughout] Respiratory Rate Respiratory Rate [Anterior Bilateral Throughout] Blood Pressure Blood Pressure [Right] O2 Sat by Pulse 97 94 96 Oximetry 04/12/20 04/12/20 04/12/20 21:46 21:51 21:55 Temperature 98.4 F Pulse Rate 94 H 90 86 Pulse Rate [ Anterior Bilateral Throughout] Respiratory 22 Rate Respiratory Rate [Anterior Bilateral Throughout] Blood Pressure Blood Pressure 108/57 [Right] O2 Sat by Pulse 97 98 97 Oximetry 04/12/20 04/12/20 04/12/20 21:56 22:01 22:06 Temperature Pulse Rate 89 91 H 92 H Pulse Rate [ Anterior Bilateral Throughout] Respiratory Rate Respiratory Rate [Anterior Bilateral Throughout] Blood Pressure Blood Pressure [Right] O2 Sat by Pulse 97 97 97 Oximetry 04/12/20 04/12/20 04/12/20 22:11 22:16 22:17 Temperature Pulse Rate 94 H 96 H 97 H Pulse Rate [ Anterior Bilateral Throughout] Respiratory Rate Respiratory Rate [Anterior Bilateral Throughout] Blood Pressure Blood Pressure [Right] O2 Sat by Pulse 99 98 93 Oximetry 04/12/20 04/12/20 04/12/20 22:21 22:26 22:30 Temperature Pulse Rate 92 H 95 H 103 H Pulse Rate [ Anterior Bilateral Throughout] Respiratory Rate Respiratory Rate [Anterior Bilateral Throughout] Blood Pressure Blood Pressure [Right] O2 Sat by Pulse 95 98 88 Oximetry 04/12/20 04/12/20 04/12/20 22:31 22:32 22:36 Temperature Pulse Rate 109 H 98 H 102 H Pulse Rate [ Anterior Bilateral Throughout] Respiratory Rate Respiratory Rate [Anterior Bilateral Throughout] Blood Pressure 118/65 Blood Pressure [Right] O2 Sat by Pulse 97 98 Oximetry 04/12/20 04/12/20 04/12/20 22:41 22:46 22:51 Temperature Pulse Rate 92 H 94 H 90 Pulse Rate [ Anterior Bilateral Throughout] Respiratory Rate Respiratory Rate [Anterior Bilateral Throughout] Blood Pressure Blood Pressure [Right] O2 Sat by Pulse 97 98 98 Oximetry 04/12/20 04/12/20 04/12/20 22:56 22:57 23:01 Temperature Pulse Rate 91 H 97 H 92 H Pulse Rate [ Anterior Bilateral Throughout] Respiratory Rate Respiratory Rate [Anterior Bilateral Throughout] Blood Pressure Blood Pressure [Right] O2 Sat by Pulse 98 93 98 Oximetry 04/12/20 04/12/20 04/12/20 23:06 23:21 23:22 Temperature Pulse Rate 97 H 106 H 91 H Pulse Rate [ Anterior Bilateral Throughout] Respiratory Rate Respiratory Rate [Anterior Bilateral Throughout] Blood Pressure Blood Pressure [Right] O2 Sat by Pulse 98 96 86 Oximetry 04/12/20 04/12/20 04/12/20 23:26 23:31 23:32 Temperature Pulse Rate 98 H 99 H 98 H Pulse Rate [ Anterior Bilateral Throughout] Respiratory Rate Respiratory Rate [Anterior Bilateral Throughout] Blood Pressure 112/68 Blood Pressure [Right] O2 Sat by Pulse 98 98 Oximetry 04/12/20 04/12/20 04/12/20 23:36 23:41 23:46 Temperature Pulse Rate 95 H 101 H 98 H Pulse Rate [ Anterior Bilateral Throughout] Respiratory Rate Respiratory Rate [Anterior Bilateral Throughout] Blood Pressure Blood Pressure [Right] O2 Sat by Pulse 98 98 99 Oximetry 04/12/20 04/12/20 04/13/20 23:51 23:56 00:01 Temperature Pulse Rate 102 H 93 H 104 H Pulse Rate [ Anterior Bilateral Throughout] Respiratory Rate Respiratory Rate [Anterior Bilateral Throughout] Blood Pressure Blood Pressure [Right] O2 Sat by Pulse 97 97 95 Oximetry 04/13/20 04/13/20 04/13/20 00:02 00:06 00:11 Temperature Pulse Rate 107 H 95 H 93 H Pulse Rate [ Anterior Bilateral Throughout] Respiratory Rate Respiratory Rate [Anterior Bilateral Throughout] Blood Pressure Blood Pressure [Right] O2 Sat by Pulse 92 99 100 Oximetry 04/13/20 04/13/20 04/13/20 00:16 00:21 00:26 Temperature Pulse Rate 97 H 99 H 92 H Pulse Rate [ Anterior Bilateral Throughout] Respiratory Rate Respiratory Rate [Anterior Bilateral Throughout] Blood Pressure Blood Pressure [Right] O2 Sat by Pulse 100 100 100 Oximetry 04/13/20 04/13/20 04/13/20 00:31 00:32 00:36 Temperature Pulse Rate 101 H 93 H 92 H Pulse Rate [ Anterior Bilateral Throughout] Respiratory Rate Respiratory Rate [Anterior Bilateral Throughout] Blood Pressure 114/66 Blood Pressure [Right] O2 Sat by Pulse 99 100 Oximetry 04/13/20 04/13/20 04/13/20 00:41 00:46 00:51 Temperature Pulse Rate 90 103 H 89 Pulse Rate [ Anterior Bilateral Throughout] Respiratory Rate Respiratory Rate [Anterior Bilateral Throughout] Blood Pressure Blood Pressure [Right] O2 Sat by Pulse 100 99 98 Oximetry 04/13/20 04/13/20 04/13/20 00:56 01:01 01:06 Temperature Pulse Rate 90 87 86 Pulse Rate [ Anterior Bilateral Throughout] Respiratory Rate Respiratory Rate [Anterior Bilateral Throughout] Blood Pressure Blood Pressure [Right] O2 Sat by Pulse 98 99 98 Oximetry 04/13/20 04/13/20 04/13/20 01:11 01:16 01:21 Temperature Pulse Rate 89 89 90 Pulse Rate [ Anterior Bilateral Throughout] Respiratory Rate Respiratory Rate [Anterior Bilateral Throughout] Blood Pressure Blood Pressure [Right] O2 Sat by Pulse 98 98 98 Oximetry 04/13/20 04/13/20 04/13/20 01:26 01:27 01:31 Temperature Pulse Rate 102 H 101 H 110 H Pulse Rate [ Anterior Bilateral Throughout] Respiratory Rate Respiratory Rate [Anterior Bilateral Throughout] Blood Pressure Blood Pressure [Right] O2 Sat by Pulse 97 94 96 Oximetry 04/13/20 04/13/20 04/13/20 01:32 01:36 01:41 Temperature Pulse Rate 109 H 114 H 88 Pulse Rate [ Anterior Bilateral Throughout] Respiratory Rate Respiratory Rate [Anterior Bilateral Throughout] Blood Pressure 106/76 Blood Pressure [Right] O2 Sat by Pulse 97 97 Oximetry 04/13/20 04/13/20 04/13/20 01:46 01:51 01:56 Temperature Pulse Rate 88 87 85 Pulse Rate [ Anterior Bilateral Throughout] Respiratory Rate Respiratory Rate [Anterior Bilateral Throughout] Blood Pressure Blood Pressure [Right] O2 Sat by Pulse 97 97 98 Oximetry 04/13/20 04/13/20 04/13/20 02:00 02:01 02:06 Temperature Pulse Rate 91 H 82 Pulse Rate [ Anterior Bilateral Throughout] Respiratory Rate Respiratory Rate [Anterior Bilateral Throughout] Blood Pressure Blood Pressure [Right] O2 Sat by Pulse 98 98 98 Oximetry 04/13/20 04/13/20 04/13/20 02:11 02:16 02:21 Temperature Pulse Rate 99 H 87 102 H Pulse Rate [ Anterior Bilateral Throughout] Respiratory Rate Respiratory Rate [Anterior Bilateral Throughout] Blood Pressure Blood Pressure [Right] O2 Sat by Pulse 97 98 97 Oximetry 04/13/20 04/13/20 04/13/20 02:26 02:31 02:32 Temperature Pulse Rate 88 96 H 92 H Pulse Rate [ Anterior Bilateral Throughout] Respiratory Rate Respiratory Rate [Anterior Bilateral Throughout] Blood Pressure 94/56 Blood Pressure [Right] O2 Sat by Pulse 98 98 Oximetry 04/13/20 04/13/20 04/13/20 02:36 02:41 02:46 Temperature Pulse Rate 84 88 87 Pulse Rate [ Anterior Bilateral Throughout] Respiratory Rate Respiratory Rate [Anterior Bilateral Throughout] Blood Pressure Blood Pressure [Right] O2 Sat by Pulse 97 98 97 Oximetry 04/13/20 04/13/20 04/13/20 02:51 02:56 03:01 Temperature Pulse Rate 86 86 90 Pulse Rate [ Anterior Bilateral Throughout] Respiratory Rate Respiratory Rate [Anterior Bilateral Throughout] Blood Pressure Blood Pressure [Right] O2 Sat by Pulse 97 97 97 Oximetry 04/13/20 04/13/20 04/13/20 03:06 03:11 03:16 Temperature Pulse Rate 82 87 86 Pulse Rate [ Anterior Bilateral Throughout] Respiratory Rate Respiratory Rate [Anterior Bilateral Throughout] Blood Pressure Blood Pressure [Right] O2 Sat by Pulse 98 98 97 Oximetry 04/13/20 04/13/20 04/13/20 03:21 03:26 03:31 Temperature Pulse Rate 90 84 83 Pulse Rate [ Anterior Bilateral Throughout] Respiratory Rate Respiratory Rate [Anterior Bilateral Throughout] Blood Pressure Blood Pressure [Right] O2 Sat by Pulse 97 98 97 Oximetry 04/13/20 04/13/20 04/13/20 03:32 03:36 03:41 Temperature Pulse Rate 82 107 H 90 Pulse Rate [ Anterior Bilateral Throughout] Respiratory Rate Respiratory Rate [Anterior Bilateral Throughout] Blood Pressure 103/57 Blood Pressure [Right] O2 Sat by Pulse 97 97 Oximetry 04/13/20 04/13/20 04/13/20 03:46 03:51 03:56 Temperature Pulse Rate 87 92 H 83 Pulse Rate [ Anterior Bilateral Throughout] Respiratory Rate Respiratory Rate [Anterior Bilateral Throughout] Blood Pressure Blood Pressure [Right] O2 Sat by Pulse 97 97 97 Oximetry 04/13/20 04/13/20 04/13/20 04:01 04:06 04:11 Temperature Pulse Rate 89 90 78 Pulse Rate [ Anterior Bilateral Throughout] Respiratory Rate Respiratory Rate [Anterior Bilateral Throughout] Blood Pressure Blood Pressure [Right] O2 Sat by Pulse 97 97 97 Oximetry 04/13/20 04/13/20 04/13/20 04:16 04:21 04:26 Temperature Pulse Rate 89 94 H 89 Pulse Rate [ Anterior Bilateral Throughout] Respiratory Rate Respiratory Rate [Anterior Bilateral Throughout] Blood Pressure Blood Pressure [Right] O2 Sat by Pulse 96 97 97 Oximetry 04/13/20 04/13/20 04/13/20 04:31 04:32 04:36 Temperature Pulse Rate 89 94 H 92 H Pulse Rate [ Anterior Bilateral Throughout] Respiratory Rate Respiratory Rate [Anterior Bilateral Throughout] Blood Pressure 108/61 Blood Pressure [Right] O2 Sat by Pulse 97 98 Oximetry 04/13/20 04/13/20 04/13/20 04:41 04:46 04:51 Temperature Pulse Rate 82 80 86 Pulse Rate [ Anterior Bilateral Throughout] Respiratory Rate Respiratory Rate [Anterior Bilateral Throughout] Blood Pressure Blood Pressure [Right] O2 Sat by Pulse 98 98 98 Oximetry 04/13/20 04/13/20 04/13/20 04:56 05:01 05:06 Temperature Pulse Rate 86 89 85 Pulse Rate [ Anterior Bilateral Throughout] Respiratory Rate Respiratory Rate [Anterior Bilateral Throughout] Blood Pressure Blood Pressure [Right] O2 Sat by Pulse 97 97 98 Oximetry 04/13/20 04/13/20 04/13/20 05:11 05:16 05:21 Temperature Pulse Rate 87 84 87 Pulse Rate [ Anterior Bilateral Throughout] Respiratory Rate Respiratory Rate [Anterior Bilateral Throughout] Blood Pressure Blood Pressure [Right] O2 Sat by Pulse 97 97 97 Oximetry 04/13/20 04/13/20 04/13/20 05:26 05:31 05:32 Temperature Pulse Rate 89 86 82 Pulse Rate [ Anterior Bilateral Throughout] Respiratory Rate Respiratory Rate [Anterior Bilateral Throughout] Blood Pressure 107/57 Blood Pressure [Right] O2 Sat by Pulse 97 96 Oximetry 04/13/20 04/13/20 04/13/20 05:36 05:41 05:46 Temperature Pulse Rate 90 96 H 85 Pulse Rate [ Anterior Bilateral Throughout] Respiratory Rate Respiratory Rate [Anterior Bilateral Throughout] Blood Pressure Blood Pressure [Right] O2 Sat by Pulse 97 97 95 Oximetry 04/13/20 04/13/20 04/13/20 05:51 06:08 06:13 Temperature Pulse Rate 85 117 H 90 Pulse Rate [ Anterior Bilateral Throughout] Respiratory Rate Respiratory Rate [Anterior Bilateral Throughout] Blood Pressure Blood Pressure [Right] O2 Sat by Pulse 96 86 97 Oximetry 04/13/20 04/13/20 04/13/20 06:18 06:23 06:28 Temperature Pulse Rate 84 81 80 Pulse Rate [ Anterior Bilateral Throughout] Respiratory Rate Respiratory Rate [Anterior Bilateral Throughout] Blood Pressure Blood Pressure [Right] O2 Sat by Pulse 97 98 98 Oximetry 04/13/20 04/13/20 04/13/20 06:32 06:33 06:38 Temperature Pulse Rate 86 82 79 Pulse Rate [ Anterior Bilateral Throughout] Respiratory Rate Respiratory Rate [Anterior Bilateral Throughout] Blood Pressure 107/63 Blood Pressure [Right] O2 Sat by Pulse 99 97 Oximetry 04/13/20 04/13/20 04/13/20 06:43 06:48 06:53 Temperature Pulse Rate 84 88 84 Pulse Rate [ Anterior Bilateral Throughout] Respiratory Rate Respiratory Rate [Anterior Bilateral Throughout] Blood Pressure Blood Pressure [Right] O2 Sat by Pulse 97 97 98 Oximetry 04/13/20 04/13/20 04/13/20 06:58 07:03 07:08 Temperature Pulse Rate 86 84 81 Pulse Rate [ Anterior Bilateral Throughout] Respiratory Rate Respiratory Rate [Anterior Bilateral Throughout] Blood Pressure Blood Pressure [Right] O2 Sat by Pulse 97 98 98 Oximetry 04/13/20 04/13/20 04/13/20 07:13 07:18 07:23 Temperature Pulse Rate 103 H 98 H 83 Pulse Rate [ Anterior Bilateral Throughout] Respiratory Rate Respiratory Rate [Anterior Bilateral Throughout] Blood Pressure Blood Pressure [Right] O2 Sat by Pulse 97 99 99 Oximetry 04/13/20 04/13/20 04/13/20 07:28 07:32 07:33 Temperature Pulse Rate 83 81 81 Pulse Rate [ Anterior Bilateral Throughout] Respiratory Rate Respiratory Rate [Anterior Bilateral Throughout] Blood Pressure 96/53 Blood Pressure [Right] O2 Sat by Pulse 99 99 Oximetry 04/13/20 04/13/20 04/13/20 07:38 07:43 07:48 Temperature Pulse Rate 82 109 H 81 Pulse Rate [ Anterior Bilateral Throughout] Respiratory Rate Respiratory Rate [Anterior Bilateral Throughout] Blood Pressure Blood Pressure [Right] O2 Sat by Pulse 99 99 98 Oximetry 04/13/20 04/13/20 04/13/20 07:53 07:58 08:03 Temperature Pulse Rate 97 H 92 H 96 H Pulse Rate [ Anterior Bilateral Throughout] Respiratory Rate Respiratory Rate [Anterior Bilateral Throughout] Blood Pressure Blood Pressure [Right] O2 Sat by Pulse 98 98 98 Oximetry 04/13/20 04/13/20 04/13/20 08:08 08:13 08:15 Temperature Pulse Rate 84 92 H 89 Pulse Rate [ Anterior Bilateral Throughout] Respiratory Rate Respiratory Rate [Anterior Bilateral Throughout] Blood Pressure 101/65 Blood Pressure [Right] O2 Sat by Pulse 98 100 Oximetry - Exam Breasts: deferred Lungs: Clear to auscultation (shallow breaths ) Abdomen: Present: soft (gravid ) Uterus: Present: normal (gravid ) FHR: auscultation normal Uterine Contraction Monitor Mode: External Uterine Contraction Pattern: Irregular Uterine Contraction Intensity: Mild Extremities: normal - Labs Labs: Abnormal Labs 04/09/20 04/09/20 04/09/20 18:23 18:23 18:23 RBC Hgb Hct MCH 26 L Lymph % (Auto) 13.2 L Lymph # (Auto) 1.0 L Seg Neutrophils % 80.5 H D-Dimer 896.32 H POC ABG pCO2 POC ABG pO2 ABG Hemoglobin ABG Sodium ABG Potassium Sodium 134 L Potassium 3.1 L Chloride Carbon Dioxide 17 L BUN 5 L Creatinine Calcium Alkaline Phosphatase 180 H Lactate Dehydrogenase C-Reactive Protein Albumin 3.1 L Arterial Blood Ionized Calcium Urine WBC (Auto) Coronavirus (PCR) 04/09/20 04/09/20 04/09/20 18:23 20:56 20:56 RBC Hgb Hct MCH Lymph % (Auto) Lymph # (Auto) Seg Neutrophils % D-Dimer 792.89 H POC ABG pCO2 POC ABG pO2 ABG Hemoglobin ABG Sodium ABG Potassium Sodium Potassium Chloride Carbon Dioxide BUN Creatinine Calcium Alkaline Phosphatase Lactate Dehydrogenase 244 H 224 H C-Reactive Protein 5.30 H 5.00 H Albumin Arterial Blood Ionized Calcium Urine WBC (Auto) Coronavirus (PCR) 04/10/20 04/10/20 04/11/20 06:45 15:16 11:08 RBC Hgb 9.9 L Hct MCH 27 L Lymph % (Auto) 12.4 L Lymph # (Auto) 1.0 L Seg Neutrophils % 80.7 H D-Dimer POC ABG pCO2 25.8 L POC ABG pO2 72.1 L ABG Hemoglobin 9.7 L ABG Sodium 133.3 L ABG Potassium 2.4 L Sodium Potassium Chloride Carbon Dioxide BUN Creatinine Calcium Alkaline Phosphatase Lactate Dehydrogenase C-Reactive Protein Albumin Arterial Blood Ionized Calcium 4.5 L Urine WBC (Auto) Coronavirus (PCR) Positive A 04/11/20 04/11/20 04/11/20 11:08 11:08 Unknown RBC Hgb Hct MCH Lymph % (Auto) Lymph # (Auto) Seg Neutrophils % D-Dimer 413.22 H POC ABG pCO2 POC ABG pO2 ABG Hemoglobin ABG Sodium ABG Potassium Sodium Potassium Chloride 108.1 H Carbon Dioxide 16 L BUN 4 L Creatinine 0.5 L Calcium Alkaline Phosphatase 178 H Lactate Dehydrogenase 256 H C-Reactive Protein 4.40 H Albumin 2.7 L Arterial Blood Ionized Calcium Urine WBC (Auto) 8.0 H Coronavirus (PCR) 04/12/20 04/12/20 04/12/20 06:56 06:56 13:44 RBC 3.56 L Hgb 9.2 L Hct 28.6 L MCH 26 L Lymph % (Auto) Lymph # (Auto) Seg Neutrophils % D-Dimer 555.67 H POC ABG pCO2 POC ABG pO2 ABG Hemoglobin ABG Sodium ABG Potassium Sodium Potassium Chloride 108.7 H Carbon Dioxide 18 L BUN 5 L Creatinine 0.5 L Calcium 8.2 L Alkaline Phosphatase Lactate Dehydrogenase C-Reactive Protein Albumin Arterial Blood Ionized Calcium Urine WBC (Auto) Coronavirus (PCR) 04/12/20 13:44 RBC Hgb Hct MCH Lymph % (Auto) Lymph # (Auto) Seg Neutrophils % D-Dimer POC ABG pCO2 POC ABG pO2 ABG Hemoglobin ABG Sodium ABG Potassium Sodium Potassium Chloride Carbon Dioxide BUN Creatinine Calcium Alkaline Phosphatase Lactate Dehydrogenase 263 H C-Reactive Protein 1.60 H Albumin Arterial Blood Ionized Calcium Urine WBC (Auto) Coronavirus (PCR) Laboratory Results - last 24 hr 04/10/20 04/12/2020 15:16 13:44 13:44 D-Dimer 555.67 H Ferritin 41.6 Lactate Dehydrogenase C-Reactive Protein Coronavirus (PCR) Positive A 04/12/20 13:44 D-Dimer Ferritin Lactate Dehydrogenase 263 H C-Reactive Protein 1.60 H Coronavirus (PCR)
[2020-04-13] MEDS: BUDESONIDE 0.5 MG/2 ML NEBU IH SCH (09:30)
[2020-04-13] MEDS: ARFORMOTEROL 15 MCG/2 ML NEBU IH SCH (09:30)
[2020-04-13] MEDS: ALBUTEROL 8.5 GM MDI INHALATION IH PRN (09:31)
[2020-04-13] MEDS: PRENATAL VIT27-FE FUMARATE-FOLIC ACID VIT TAB PO SCH (10:00)
--- NOTE | 2020-04-13 11:41 | Progress Note ---
Assessment and Plan 25 y/o female, 34wks admitted with dyspnea on exertion and tachypnea with abnormal CXR, concern for COVID 19 pneumonia. 04/13/2020: Now down to room air. Will need ambulatory sat prior to discharge. Continue asthma therapy. Will continue to monitor. 04/12/2020: COVID positive. On Remdesivir and steroids. Agree with consenting for Convalescent plasma if oxygenation gets worse. Will continue to follow closely. Continue asthma therapy. Incentive alek to bedside and hepa filter in room if possible. If she starts to decompensate, I do not disagree with transfer. Currently our bed situation is better, at least for now, but no acute indication to transfer to our step down or ICU as of right now. Current use of HFNC is for tachypnea, not hypoxemia. Agree with VTE work up being done by ID. 04/11/2020: Follow up COVID test. Continue supplemental oxygen and wean for sats >88% and comfort. Continue steroid therapy. Appreciate ID help. Continue asthma therapy. 1. Agree with COVID 19 rule out 2. Would start patient on inhaled steroid therapy as well as inhaled long acting beta agonist. Spoke with RT for NICU who is covering the mother baby floor as well. Patient was actually satting 93% on room air but was just very tachypnic. They suggest Vapotherm to help with her work of breathing which I do not disagree with. Please keep in mind this was changed not secondary to d esaturation but to improve work of breathing. 3. Agree with IV steroids. Assuming the increased dosage is secondary to 4. Please limit IVF's, we like to run these patients on the dry side as increased or execessive volume could worsen hypoxemia 5. likely not able to prone 6. Guarded prognosis. Spoke with OB attending over the phone, current bed status in IMCU and ICU is not good. Unable to take patient to either unit right now secondary to staffing. If she becomes acutely ill and requires more oxygen then will need transfer to another facility unless our staffing can be improved. Guarded prognosis. Subjective Date of service: 04/13/20 Principal diagnosis: COVID-19, Bilateral Pneumonia, IUP at 34w5d Interval history: No acute events. Now weaned to room air. LE dopplers are negative. Objective Vital Signs - 12hr 04/12/20 04/12/20 04/12/20 23:36 23:41 23:46 Temperature Pulse Rate 95 H 101 H 98 H Pulse Rate [ Anterior Bilateral Throughout] Pulse Rate [ Bilateral Throughout] Respiratory Rate Respiratory Rate [Anterior Bilateral Throughout] Respiratory Rate [Bilateral Throughout] Blood Pressure O2 Sat by Pulse 98 98 99 Oximetry 04/12/20 04/12/20 04/13/20 23:51 23:56 00:01 Temperature Pulse Rate 102 H 93 H 104 H Pulse Rate [ Anterior Bilateral Throughout] Pulse Rate [ Bilateral Throughout] Respiratory Rate Respiratory Rate [Anterior Bilateral Throughout] Respiratory Rate [Bilateral Throughout] Blood Pressure O2 Sat by Pulse 97 97 95 Oximetry 04/13/20 04/13/20 04/13/20 00:02 00:06 00:11 Temperature Pulse Rate 107 H 95 H 93 H Pulse Rate [ Anterior Bilateral Throughout] Pulse Rate [ Bilateral Throughout] Respiratory Rate Respiratory Rate [Anterior Bilateral Throughout] Respiratory Rate [Bilateral Throughout] Blood Pressure O2 Sat by Pulse 92 99 100 Oximetry 04/13/20 04/13/20 04/13/20 00:16 00:21 00:26 Temperature Pulse Rate 97 H 99 H 92 H Pulse Rate [ Anterior Bilateral Throughout] Pulse Rate [ Bilateral Throughout] Respiratory Rate Respiratory Rate [Anterior Bilateral Throughout] Respiratory Rate [Bilateral Throughout] Blood Pressure O2 Sat by Pulse 100 100 100 Oximetry 04/13/20 04/13/20 04/13/20 00:31 00:32 00:36 Temperature Pulse Rate 101 H 93 H 92 H Pulse Rate [ Anterior Bilateral Throughout] Pulse Rate [ Bilateral Throughout] Respiratory Rate Respiratory Rate [Anterior Bilateral Throughout] Respiratory Rate [Bilateral Throughout] Blood Pressure 114/66 O2 Sat by Pulse 99 100 Oximetry 04/13/20 04/13/20 04/13/20 00:41 00:46 00:51 Temperature Pulse Rate 90 103 H 89 Pulse Rate [ Anterior Bilateral Throughout] Pulse Rate [ Bilateral Throughout] Respiratory Rate Respiratory Rate [Anterior Bilateral Throughout] Respiratory Rate [Bilateral Throughout] Blood Pressure O2 Sat by Pulse 100 99 98 Oximetry 04/13/20 04/13/20 04/13/20 00:56 01:01 01:06 Temperature Pulse Rate 90 87 86 Pulse Rate [ Anterior Bilateral Throughout] Pulse Rate [ Bilateral Throughout] Respiratory Rate Respiratory Rate [Anterior Bilateral Throughout] Respiratory Rate [Bilateral Throughout] Blood Pressure O2 Sat by Pulse 98 99 98 Oximetry 04/13/20 04/13/20 04/13/20 01:11 01:16 01:21 Temperature Pulse Rate 89 89 90 Pulse Rate [ Anterior Bilateral Throughout] Pulse Rate [ Bilateral Throughout] Respiratory Rate Respiratory Rate [Anterior Bilateral Throughout] Respiratory Rate [Bilateral Throughout] Blood Pressure O2 Sat by Pulse 98 98 98 Oximetry 04/13/20 04/13/20 04/13/20 01:26 01:27 01:31 Temperature Pulse Rate 102 H 101 H 110 H Pulse Rate [ Anterior Bilateral Throughout] Pulse Rate [ Bilateral Throughout] Respiratory Rate Respiratory Rate [Anterior Bilateral Throughout] Respiratory Rate [Bilateral Throughout] Blood Pressure O2 Sat by Pulse 97 94 96 Oximetry 04/13/20 04/13/20 04/13/20 01:32 01:36 01:41 Temperature Pulse Rate 109 H 114 H 88 Pulse Rate [ Anterior Bilateral Throughout] Pulse Rate [ Bilateral Throughout] Respiratory Rate Respiratory Rate [Anterior Bilateral Throughout] Respiratory Rate [Bilateral Throughout] Blood Pressure 106/76 O2 Sat by Pulse 97 97 Oximetry 04/13/20 04/13/20 04/13/20 01:46 01:51 01:56 Temperature Pulse Rate 88 87 85 Pulse Rate [ Anterior Bilateral Throughout] Pulse Rate [ Bilateral Throughout] Respiratory Rate Respiratory Rate [Anterior Bilateral Throughout] Respiratory Rate [Bilateral Throughout] Blood Pressure O2 Sat by Pulse 97 97 98 Oximetry 04/13/20 04/13/20 04/13/20 02:00 02:01 02:06 Temperature Pulse Rate 91 H 82 Pulse Rate [ Anterior Bilateral Throughout] Pulse Rate [ Bilateral Throughout] Respiratory Rate Respiratory Rate [Anterior Bilateral Throughout] Respiratory Rate [Bilateral Throughout] Blood Pressure O2 Sat by Pulse 98 98 98 Oximetry 04/13/20 04/13/20 04/13/20 02:11 02:16 02:21 Temperature Pulse Rate 99 H 87 102 H Pulse Rate [ Anterior Bilateral Throughout] Pulse Rate [ Bilateral Throughout] Respiratory Rate Respiratory Rate [Anterior Bilateral Throughout] Respiratory Rate [Bilateral Throughout] Blood Pressure O2 Sat by Pulse 97 98 97 Oximetry 04/13/20 04/13/20 04/13/20 02:26 02:31 02:32 Temperature Pulse Rate 88 96 H 92 H Pulse Rate [ Anterior Bilateral Throughout] Pulse Rate [ Bilateral Throughout] Respiratory Rate Respiratory Rate [Anterior Bilateral Throughout] Respiratory Rate [Bilateral Throughout] Blood Pressure 94/56 O2 Sat by Pulse 98 98 Oximetry 04/13/20 04/13/20 04/13/20 02:36 02:41 02:46 Temperature Pulse Rate 84 88 87 Pulse Rate [ Anterior Bilateral Throughout] Pulse Rate [ Bilateral Throughout] Respiratory Rate Respiratory Rate [Anterior Bilateral Throughout] Respiratory Rate [Bilateral Throughout] Blood Pressure O2 Sat by Pulse 97 98 97 Oximetry 04/13/20 04/13/20 04/13/20 02:51 02:56 03:01 Temperature Pulse Rate 86 86 90 Pulse Rate [ Anterior Bilateral Throughout] Pulse Rate [ Bilateral Throughout] Respiratory Rate Respiratory Rate [Anterior Bilateral Throughout] Respiratory Rate [Bilateral Throughout] Blood Pressure O2 Sat by Pulse 97 97 97 Oximetry 04/13/20 04/13/20 04/13/20 03:06 03:11 03:16 Temperature Pulse Rate 82 87 86 Pulse Rate [ Anterior Bilateral Throughout] Pulse Rate [ Bilateral Throughout] Respiratory Rate Respiratory Rate [Anterior Bilateral Throughout] Respiratory Rate [Bilateral Throughout] Blood Pressure O2 Sat by Pulse 98 98 97 Oximetry 04/13/20 04/13/20 04/13/20 03:21 03:26 03:31 Temperature Pulse Rate 90 84 83 Pulse Rate [ Anterior Bilateral Throughout] Pulse Rate [ Bilateral Throughout] Respiratory Rate Respiratory Rate [Anterior Bilateral Throughout] Respiratory Rate [Bilateral Throughout] Blood Pressure O2 Sat by Pulse 97 98 97 Oximetry 04/13/20 04/13/20 04/13/20 03:32 03:36 03:41 Temperature Pulse Rate 82 107 H 90 Pulse Rate [ Anterior Bilateral Throughout] Pulse Rate [ Bilateral Throughout] Respiratory Rate Respiratory Rate [Anterior Bilateral Throughout] Respiratory Rate [Bilateral Throughout] Blood Pressure 103/57 O2 Sat by Pulse 97 97 Oximetry 04/13/20 04/13/20 04/13/20 03:46 03:51 03:56 Temperature Pulse Rate 87 92 H 83 Pulse Rate [ Anterior Bilateral Throughout] Pulse Rate [ Bilateral Throughout] Respiratory Rate Respiratory Rate [Anterior Bilateral Throughout] Respiratory Rate [Bilateral Throughout] Blood Pressure O2 Sat by Pulse 97 97 97 Oximetry 04/13/20 04/13/20 04/13/20 04:01 04:06 04:11 Temperature Pulse Rate 89 90 78 Pulse Rate [ Anterior Bilateral Throughout] Pulse Rate [ Bilateral Throughout] Respiratory Rate Respiratory Rate [Anterior Bilateral Throughout] Respiratory Rate [Bilateral Throughout] Blood Pressure O2 Sat by Pulse 97 97 97 Oximetry 04/13/20 04/13/20 04/13/20 04:16 04:21 04:26 Temperature Pulse Rate 89 94 H 89 Pulse Rate [ Anterior Bilateral Throughout] Pulse Rate [ Bilateral Throughout] Respiratory Rate Respiratory Rate [Anterior Bilateral Throughout] Respiratory Rate [Bilateral Throughout] Blood Pressure O2 Sat by Pulse 96 97 97 Oximetry 04/13/20 04/13/20 04/13/20 04:31 04:32 04:36 Temperature Pulse Rate 89 94 H 92 H Pulse Rate [ Anterior Bilateral Throughout] Pulse Rate [ Bilateral Throughout] Respiratory Rate Respiratory Rate [Anterior Bilateral Throughout] Respiratory Rate [Bilateral Throughout] Blood Pressure 108/61 O2 Sat by Pulse 97 98 Oximetry 04/13/20 04/13/20 04/13/20 04:41 04:46 04:51 Temperature Pulse Rate 82 80 86 Pulse Rate [ Anterior Bilateral Throughout] Pulse Rate [ Bilateral Throughout] Respiratory Rate Respiratory Rate [Anterior Bilateral Throughout] Respiratory Rate [Bilateral Throughout] Blood Pressure O2 Sat by Pulse 98 98 98 Oximetry 04/13/20 04/13/20 04/13/20 04:56 05:01 05:06 Temperature Pulse Rate 86 89 85 Pulse Rate [ Anterior Bilateral Throughout] Pulse Rate [ Bilateral Throughout] Respiratory Rate Respiratory Rate [Anterior Bilateral Throughout] Respiratory Rate [Bilateral Throughout] Blood Pressure O2 Sat by Pulse 97 97 98 Oximetry 04/13/20 04/13/20 04/13/20 05:11 05:16 05:21 Temperature Pulse Rate 87 84 87 Pulse Rate [ Anterior Bilateral Throughout] Pulse Rate [ Bilateral Throughout] Respiratory Rate Respiratory Rate [Anterior Bilateral Throughout] Respiratory Rate [Bilateral Throughout] Blood Pressure O2 Sat by Pulse 97 97 97 Oximetry 04/13/20 04/13/20 04/13/20 05:26 05:31 05:32 Temperature Pulse Rate 89 86 82 Pulse Rate [ Anterior Bilateral Throughout] Pulse Rate [ Bilateral Throughout] Respiratory Rate Respiratory Rate [Anterior Bilateral Throughout] Respiratory Rate [Bilateral Throughout] Blood Pressure 107/57 O2 Sat by Pulse 97 96 Oximetry 04/13/20 04/13/20 04/13/20 05:36 05:41 05:46 Temperature Pulse Rate 90 96 H 85 Pulse Rate [ Anterior Bilateral Throughout] Pulse Rate [ Bilateral Throughout] Respiratory Rate Respiratory Rate [Anterior Bilateral Throughout] Respiratory Rate [Bilateral Throughout] Blood Pressure O2 Sat by Pulse 97 97 95 Oximetry 04/13/20 04/13/20 04/13/20 05:51 06:08 06:13 Temperature Pulse Rate 85 117 H 90 Pulse Rate [ Anterior Bilateral Throughout] Pulse Rate [ Bilateral Throughout] Respiratory Rate Respiratory Rate [Anterior Bilateral Throughout] Respiratory Rate [Bilateral Throughout] Blood Pressure O2 Sat by Pulse 96 86 97 Oximetry 04/13/20 04/13/20 04/13/20 06:18 06:23 06:28 Temperature Pulse Rate 84 81 80 Pulse Rate [ Anterior Bilateral Throughout] Pulse Rate [ Bilateral Throughout] Respiratory Rate Respiratory Rate [Anterior Bilateral Throughout] Respiratory Rate [Bilateral Throughout] Blood Pressure O2 Sat by Pulse 97 98 98 Oximetry 04/13/20 04/13/20 04/13/20 06:32 06:33 06:38 Temperature Pulse Rate 86 82 79 Pulse Rate [ Anterior Bilateral Throughout] Pulse Rate [ Bilateral Throughout] Respiratory Rate Respiratory Rate [Anterior Bilateral Throughout] Respiratory Rate [Bilateral Throughout] Blood Pressure 107/63 O2 Sat by Pulse 99 97 Oximetry 04/13/20 04/13/20 04/13/20 06:43 06:48 06:53 Temperature Pulse Rate 84 88 84 Pulse Rate [ Anterior Bilateral Throughout] Pulse Rate [ Bilateral Throughout] Respiratory Rate Respiratory Rate [Anterior Bilateral Throughout] Respiratory Rate [Bilateral Throughout] Blood Pressure O2 Sat by Pulse 97 97 98 Oximetry 04/13/20 04/13/20 04/13/20 06:58 07:03 07:08 Temperature Pulse Rate 86 84 81 Pulse Rate [ Anterior Bilateral Throughout] Pulse Rate [ Bilateral Throughout] Respiratory Rate Respiratory Rate [Anterior Bilateral Throughout] Respiratory Rate [Bilateral Throughout] Blood Pressure O2 Sat by Pulse 97 98 98 Oximetry 04/13/20 04/13/20 04/13/20 07:13 07:18 07:23 Temperature Pulse Rate 103 H 98 H 83 Pulse Rate [ Anterior Bilateral Throughout] Pulse Rate [ Bilateral Throughout] Respiratory Rate Respiratory Rate [Anterior Bilateral Throughout] Respiratory Rate [Bilateral Throughout] Blood Pressure O2 Sat by Pulse 97 99 99 Oximetry 04/13/20 04/13/20 04/13/20 07:28 07:32 07:33 Temperature Pulse Rate 83 81 81 Pulse Rate [ Anterior Bilateral Throughout] Pulse Rate [ Bilateral Throughout] Respiratory Rate Respiratory Rate [Anterior Bilateral Throughout] Respiratory Rate [Bilateral Throughout] Blood Pressure 96/53 O2 Sat by Pulse 99 99 Oximetry 04/13/20 04/13/20 04/13/20 07:38 07:43 07:48 Temperature Pulse Rate 82 109 H 81 Pulse Rate [ Anterior Bilateral Throughout] Pulse Rate [ Bilateral Throughout] Respiratory Rate Respiratory Rate [Anterior Bilateral Throughout] Respiratory Rate [Bilateral Throughout] Blood Pressure O2 Sat by Pulse 99 99 98 Oximetry 04/13/20 04/13/20 04/13/20 07:53 07:58 08:03 Temperature Pulse Rate 97 H 92 H 96 H Pulse Rate [ Anterior Bilateral Throughout] Pulse Rate [ Bilateral Throughout] Respiratory Rate Respiratory Rate [Anterior Bilateral Throughout] Respiratory Rate [Bilateral Throughout] Blood Pressure O2 Sat by Pulse 98 98 98 Oximetry 04/13/20 04/13/20 04/13/20 08:08 08:13 08:15 Temperature 97.9 F Pulse Rate 84 92 H 89 Pulse Rate [ Anterior Bilateral Throughout] Pulse Rate [ Bilateral Throughout] Respiratory 20 Rate Respiratory Rate [Anterior Bilateral Throughout] Respiratory Rate [Bilateral Throughout] Blood Pressure 101/65 O2 Sat by Pulse 98 100 98 Oximetry 04/13/20 04/13/20 04/13/20 08:17 08:18 08:23 Temperature Pulse Rate 113 H 99 H 84 Pulse Rate [ Anterior Bilateral Throughout] Pulse Rate [ Bilateral Throughout] Respiratory Rate Respiratory Rate [Anterior Bilateral Throughout] Respiratory Rate [Bilateral Throughout] Blood Pressure O2 Sat by Pulse 88 98 99 Oximetry 04/13/20 04/13/20 04/13/20 08:27 08:28 08:32 Temperature Pulse Rate 97 H 89 93 H Pulse Rate [ Anterior Bilateral Throughout] Pulse Rate [ Bilateral Throughout] Respiratory Rate Respiratory Rate [Anterior Bilateral Throughout] Respiratory Rate [Bilateral Throughout] Blood Pressure 120/91 O2 Sat by Pulse 93 99 89 Oximetry 04/13/20 04/13/20 04/13/20 08:33 08:38 08:43 Temperature Pulse Rate 105 H 86 88 Pulse Rate [ Anterior Bilateral Throughout] Pulse Rate [ Bilateral Throughout] Respiratory Rate Respiratory Rate [Anterior Bilateral Throughout] Respiratory Rate [Bilateral Throughout] Blood Pressure O2 Sat by Pulse 99 99 99 Oximetry 04/13/20 04/13/20 04/13/20 08:48 08:53 09:03 Temperature Pulse Rate 84 90 104 H Pulse Rate [ Anterior Bilateral Throughout] Pulse Rate [ Bilateral Throughout] Respiratory Rate Respiratory Rate [Anterior Bilateral Throughout] Respiratory Rate [Bilateral Throughout] Blood Pressure O2 Sat by Pulse 99 99 98 Oximetry 04/13/20 04/13/20 04/13/20 09:05 09:08 09:13 Temperature Pulse Rate 98 H 110 H 90 Pulse Rate [ Anterior Bilateral Throughout] Pulse Rate [ Bilateral Throughout] Respiratory Rate Respiratory Rate [Anterior Bilateral Throughout] Respiratory Rate [Bilateral Throughout] Blood Pressure 113/66 O2 Sat by Pulse 97 97 Oximetry 04/13/20 04/13/20 04/13/20 09:14 09:17 09:18 Temperature Pulse Rate 88 Pulse Rate [ 108 H Anterior Bilateral Throughout] Pulse Rate [ 112 H Bilateral Throughout] Respiratory Rate Respiratory 17 Rate [Anterior Bilateral Throughout] Respiratory 20 Rate [Bilateral Throughout] Blood Pressure O2 Sat by Pulse 97 97 Oximetry 04/13/20 04/13/20 04/13/20 09:23 09:28 09:32 Temperature Pulse Rate 100 H 96 H 93 H Pulse Rate [ Anterior Bilateral Throughout] Pulse Rate [ Bilateral Throughout] Respiratory Rate Respiratory Rate [Anterior Bilateral Throughout] Respiratory Rate [Bilateral Throughout] Blood Pressure 102/57 O2 Sat by Pulse 97 97 Oximetry 04/13/20 04/13/20 04/13/20 09:33 09:38 09:43 Temperature Pulse Rate 91 H 97 H 91 H Pulse Rate [ Anterior Bilateral Throughout] Pulse Rate [ Bilateral Throughout] Respiratory Rate Respiratory Rate [Anterior Bilateral Throughout] Respiratory Rate [Bilateral Throughout] Blood Pressure O2 Sat by Pulse 97 97 96 Oximetry 04/13/20 04/13/20 04/13/20 09:48 09:53 09:58 Temperature Pulse Rate 91 H 89 91 H Pulse Rate [ Anterior Bilateral Throughout] Pulse Rate [ Bilateral Throughout] Respiratory Rate Respiratory Rate [Anterior Bilateral Throughout] Respiratory Rate [Bilateral Throughout] Blood Pressure O2 Sat by Pulse 97 97 98 Oximetry 04/13/20 04/13/20 04/13/20 10:03 10:06 10:08 Temperature Pulse Rate 102 H 106 H 88 Pulse Rate [ Anterior Bilateral Throughout] Pulse Rate [ Bilateral Throughout] Respiratory Rate Respiratory Rate [Anterior Bilateral Throughout] Respiratory Rate [Bilateral Throughout] Blood Pressure O2 Sat by Pulse 96 94 98 Oximetry 04/13/20 04/13/20 04/13/20 10:13 10:18 10:23 Temperature Pulse Rate 89 87 96 H Pulse Rate [ Anterior Bilateral Throughout] Pulse Rate [ Bilateral Throughout] Respiratory Rate Respiratory Rate [Anterior Bilateral Throughout] Respiratory Rate [Bilateral Throughout] Blood Pressure O2 Sat by Pulse 98 98 98 Oximetry 04/13/20 04/13/20 04/13/20 10:28 10:32 10:33 Temperature Pulse Rate 78 83 87 Pulse Rate [ Anterior Bilateral Throughout] Pulse Rate [ Bilateral Throughout] Respiratory Rate Respiratory Rate [Anterior Bilateral Throughout] Respiratory Rate [Bilateral Throughout] Blood Pressure 110/63 O2 Sat by Pulse 99 98 Oximetry 04/13/20 04/13/20 04/13/20 10:38 10:43 10:48 Temperature Pulse Rate 90 80 81 Pulse Rate [ Anterior Bilateral Throughout] Pulse Rate [ Bilateral Throughout] Respiratory Rate Respiratory Rate [Anterior Bilateral Throughout] Respiratory Rate [Bilateral Throughout] Blood Pressure O2 Sat by Pulse 97 98 97 Oximetry 04/13/20 04/13/20 04/13/20 10:53 10:58 11:03 Temperature Pulse Rate 80 94 H 93 H Pulse Rate [ Anterior Bilateral Throughout] Pulse Rate [ Bilateral Throughout] Respiratory Rate Respiratory Rate [Anterior Bilateral Throughout] Respiratory Rate [Bilateral Throughout] Blood Pressure O2 Sat by Pulse 98 98 97 Oximetry 04/13/20 04/13/20 04/13/20 11:08 11:13 11:17 Temperature Pulse Rate 93 H 89 84 Pulse Rate [ Anterior Bilateral Throughout] Pulse Rate [ Bilateral Throughout] Respiratory Rate Respiratory Rate [Anterior Bilateral Throughout] Respiratory Rate [Bilateral Throughout] Blood Pressure O2 Sat by Pulse 97 98 85 Oximetry 04/13/20 04/13/20 04/13/20 11:18 11:23 11:28 Temperature Pulse Rate 85 85 90 Pulse Rate [ Anterior Bilateral Throughout] Pulse Rate [ Bilateral Throughout] Respiratory Rate Respiratory Rate [Anterior Bilateral Throughout] Respiratory Rate [Bilateral Throughout] Blood Pressure O2 Sat by Pulse 96 96 96 Oximetry 04/13/20 04/13/20 11:32 11:33 Temperature Pulse Rate 82 85 Pulse Rate [ Anterior Bilateral Throughout] Pulse Rate [ Bilateral Throughout] Respiratory Rate Respiratory Rate [Anterior Bilateral Throughout] Respiratory Rate [Bilateral Throughout] Blood Pressure 108/63 O2 Sat by Pulse 95 Oximetry CBC and BMP: 04/12/20 06:56 04/12/20 06:56 ABG, PT/INR, D-dimer: ABG ABG pH 7.38 (7.320-7.450) 04/10/20 06:45 POC ABG pCO2 25.8 mmHg (32.0-48.0) L 04/10/20 06:45 POC ABG pO2 72.1 mmHg (83-108) L 04/10/20 06:45 POC ABG HCO3 15.0 04/10/20 06:45 PT/INR, D-dimer D-Dimer 555.67 ng/mlDDU (0-234) H 04/12/20 13:44 Abnormal lab findings: Abnormal Labs 04/09/20 04/09/20 04/09/20 18:23 18:23 18:23 RBC Hgb Hct MCH 26 L Lymph % (Auto) 13.2 L Lymph # (Auto) 1.0 L Seg Neutrophils % 80.5 H D-Dimer 896.32 H POC ABG pCO2 POC ABG pO2 ABG Hemoglobin ABG Sodium ABG Potassium Sodium 134 L Potassium 3.1 L Chloride Carbon Dioxide 17 L BUN 5 L Creatinine Calcium Alkaline Phosphatase 180 H Lactate Dehydrogenase C-Reactive Protein Albumin 3.1 L Arterial Blood Ionized Calcium Urine WBC (Auto) Coronavirus (PCR) 04/09/20 04/09/20 04/09/20 18:23 20:56 20:56 RBC Hgb Hct MCH Lymph % (Auto) Lymph # (Auto) Seg Neutrophils % D-Dimer 792.89 H POC ABG pCO2 POC ABG pO2 ABG Hemoglobin ABG Sodium ABG Potassium Sodium Potassium Chloride Carbon Dioxide BUN Creatinine Calcium Alkaline Phosphatase Lactate Dehydrogenase 244 H 224 H C-Reactive Protein 5.30 H 5.00 H Albumin Arterial Blood Ionized Calcium Urine WBC (Auto) Coronavirus (PCR) 04/10/20 04/10/20 04/11/20 06:45 15:16 11:08 RBC Hgb 9.9 L Hct MCH 27 L Lymph % (Auto) 12.4 L Lymph # (Auto) 1.0 L Seg Neutrophils % 80.7 H D-Dimer POC ABG pCO2 25.8 L POC ABG pO2 72.1 L ABG Hemoglobin 9.7 L ABG Sodium 133.3 L ABG Potassium 2.4 L Sodium Potassium Chloride Carbon Dioxide BUN Creatinine Calcium Alkaline Phosphatase Lactate Dehydrogenase C-Reactive Protein Albumin Arterial Blood Ionized Calcium 4.5 L Urine WBC (Auto) Coronavirus (PCR) Positive A 04/11/20 04/11/20 04/11/20 11:08 11:08 Unknown RBC Hgb Hct MCH Lymph % (Auto) Lymph # (Auto) Seg Neutrophils % D-Dimer 413.22 H POC ABG pCO2 POC ABG pO2 ABG Hemoglobin ABG Sodium ABG Potassium Sodium Potassium Chloride 108.1 H Carbon Dioxide 16 L BUN 4 L Creatinine 0.5 L Calcium Alkaline Phosphatase 178 H Lactate Dehydrogenase 256 H C-Reactive Protein 4.40 H Albumin 2.7 L Arterial Blood Ionized Calcium Urine WBC (Auto) 8.0 H Coronavirus (PCR) 04/12/20 04/12/20 04/12/20 06:56 06:56 13:44 RBC 3.56 L Hgb 9.2 L Hct 28.6 L MCH 26 L Lymph % (Auto) Lymph # (Auto) Seg Neutrophils % D-Dimer 555.67 H POC ABG pCO2 POC ABG pO2 ABG Hemoglobin ABG Sodium ABG Potassium Sodium Potassium Chloride 108.7 H Carbon Dioxide 18 L BUN 5 L Creatinine 0.5 L Calcium 8.2 L Alkaline Phosphatase Lactate Dehydrogenase C-Reactive Protein Albumin Arterial Blood Ionized Calcium Urine WBC (Auto) Coronavirus (PCR) 04/12/20 13:44 RBC Hgb Hct MCH Lymph % (Auto) Lymph # (Auto) Seg Neutrophils % D-Dimer POC ABG pCO2 POC ABG pO2 ABG Hemoglobin ABG Sodium ABG Potassium Sodium Potassium Chloride Carbon Dioxide BUN Creatinine Calcium Alkaline Phosphatase Lactate Dehydrogenase 263 H C-Reactive Protein 1.60 H Albumin Arterial Blood Ionized Calcium Urine WBC (Auto) Coronavirus (PCR) [employer] notes reviewed: RT
--- NOTE | 2020-04-13 15:19 | Progress Note ---
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 We been consulted to assist in management as she is noted to be tachypneic requiring 7 L of oxygen. On arrival the patient reports shortness of breath worse with exertion. She is 3 para 10 and does not recall having this severe shortness of breath during her other pregnancies. During our conversation she is noted to have 98% saturation while off the oxygen as she states that the high flow is uncomfortable to put in. Her spouse was in the room states that she has not been able to keep any food down that she does not like the taste of food she denies any loss of sensation of taste or smell at this time. She was not clear if she has nasal congestion but states that the force of the oxygen was more of a problem. She denies any fever nausea vomiting or diarrhea except as is associated with her normal . Chest x-ray concerning for bilateral infiltrates in the bases 04/11: Continue supportive care wean oxygen as tolerated. Follow results of the COVID-19. Covid 19 antibodies are negative at this time. 04/13: Patient was seen by colleague yesterday, today no new complaints. Acute shortness of breath without hypoxia Upper respiratory patient's infectious with bilateral infiltrates in the chest concerning for pneumonia Rule out sepsis Systemic inflammatory response syndrome without organ dysfunction Patient under suspicion for COVID-19 at 34 weeks Plan Continue supportive care oxygen as tolerated for work of breathing Monitor saturation closely and if desaturation or increased work of breathing need to alert on any hospitalization Continue with steroids Patient discussed with insurance solicitor and agree with recommendation guarded prognosis he has already spoken with the OB physician over the phone due to current bed status and if patient test positive for Covid will likely need to be transferred to tertiary institution where ECMO can be administered. Check inflammatory markers while awaiting COVID-19 testing and serology Infectious disease consulted will await their input DVT and GI prophylaxis Thank you for allowing us take part in the care of your patient as my physician to call available more therapeutic or diagnostic measures may need to be presented. History Interval history: Patient seen and examined resting comfortably no new complaints at this time. Hospitalist Physical - Physical exam Narrative exam: VITAL SIGNS: Reviewed. GENERAL: The patient appears normally developed, visually observed with no noted increased work of breathing able to speak complete sentences. She reports feeling better compared to yesterday and slept all night all other exams deferred at this time due to global pandemic and patient is a PUI. And an effort to conserve PPE vital signs as documented. - Constitutional Vitals: Temp Pulse Resp BP Pulse Ox 97.9 F 83 20 96/52 99 04/13/20 08:15 04/13/20 15:15 04/13/20 09:14 04/13/20 14:32 04/13/20 15:15 General appearance: Present: no acute distress Results - Labs CBC & Chem 7: 04/12/20 06:56 04/12/20 06:56 Labs: Laboratory Last Values WBC 7.7 K/mm3 (4.5-11.0) 04/12/20 06:56 RBC 3.56 M/mm3 (3.65-5.03) L 04/12/20 06:56 Hgb 9.2 gm/dl (10.1-14.3) L 04/12/20 06:56 Hct 28.6 % (30.3-42.9) L 04/12/20 06:56 MCV 80 fl (79-97) 04/12/20 06:56 MCH 26 pg (28-32) L 04/12/20 06:56 MCHC 32 % (30-34) 04/12/20 06:56 RDW 15.0 % (13.2-15.2) 04/12/20 06:56 Plt Count 294 K/mm3 (140-440) 04/12/20 06:56 Lymph % (Auto) 12.4 % (13.4-35.0) L 04/11/20 11:08 [place] % (Auto) 6.8 % (0.0-7.3) 04/11/20 11:08 Eos % (Auto) 0.0 % (0.0-4.3) 04/11/20 11:08 Baso % (Auto) 0.1 % (0.0-1.8) 04/11/20 11:08 Lymph # (Auto) 1.0 K/mm3 (1.2-5.4) L 04/11/20 11:08 [place] # (Auto) 0.6 K/mm3 (0.0-0.8) 04/11/20 11:08 Eos # (Auto) 0.0 K/mm3 (0.0-0.4) 04/11/20 11:08 Baso # (Auto) 0.0 K/mm3 (0.0-0.1) 04/11/20 11:08 Seg Neutrophils % 80.7 % (40.0-70.0) H 04/11/20 11:08 Seg Neutrophils # 6.6 K/mm3 (1.8-7.7) 04/11/20 11:08 D-Dimer 555.67 ng/mlDDU (0-234) H 04/12/20 13:44 ABG pH 7.38 (7.320-7.450) 04/10/20 06:45 POC ABG pCO2 25.8 mmHg (32.0-48.0) L 04/10/20 06:45 POC ABG pO2 72.1 mmHg (83-108) L 04/10/20 06:45 POC ABG HCO3 15.0 04/10/20 06:45 POC ABG Base Excess -8.8 04/10/20 06:45 ABG Hemoglobin 9.7 (12.0-17.5) L 04/10/20 06:45 ABG Sodium 133.3 mmol/L (136.0-145.0) L 04/10/20 06:45 ABG Potassium 2.4 mmol/L (3.40-4.50) L 04/10/20 06:45 ABG Chloride 107.0 mmol/L (98-107) 04/10/20 06:45 ABG Glucose 71 mg/dL (65-95) 04/10/20 06:45 Sodium 139 mmol/L (137-145) 04/12/20 06:56 Potassium 3.6 mmol/L (3.6-5.0) 04/12/20 06:56 Chloride 108.7 mmol/L (98-107) H 04/12/20 06:56 Carbon Dioxide 18 mmol/L (22-30) L 04/12/20 06:56 Anion Gap 16 mmol/L 04/12/20 06:56 BUN 5 mg/dL (7-17) L 04/12/20 06:56 Creatinine 0.5 mg/dL (0.6-1.2) L 04/12/20 06:56 Estimated GFR > 60 ml/min 04/12/20 06:56 BUN/Creatinine Ratio 10 % 04/12/20 06:56 Glucose 93 mg/dL (65-100) 04/12/20 06:56 Lactic Acid 0.80 mmol/L (0.7-2.0) 04/09/20 20:56 Calcium 8.2 mg/dL (8.4-10.2) L 04/12/20 06:56 Ferritin 41.6 ng/mL (10.0-200.0) 04/12/20 13:44 Total Bilirubin 0.80 mg/dL (0.1-1.2) 04/11/20 11:08 AST 24 units/L (5-40) 04/11/20 11:08 ALT 17 units/L (7-56) 04/11/20 11:08 Alkaline Phosphatase 178 units/L (35-129) H 04/11/20 11:08 Lactate Dehydrogenase 263 units/L (91-180) H 04/12/20 13:44 C-Reactive Protein 1.60 mg/dL (0.00-1.30) H 04/12/20 13:44 Total Protein 6.3 g/dL (6.3-8.2) 04/11/20 11:08 Albumin 2.7 g/dL (3.9-5) L 04/11/20 11:08 Albumin/Globulin Ratio 0.8 % 04/11/20 11:08 Procalcitonin 0.46 ng/mL (<0.15) 04/09/20 18:23 Arterial Blood Glucose 71 mg/dL (65-95) 04/10/20 06:45 Arterial Blood Ionized Calcium 4.5 mg/dL (4.6-5.3) L 04/10/20 06:45 Urine Color Yellow (Yellow) 04/11/20 Unknown Urine Turbidity Clear (Clear) 04/11/20 Unknown Urine pH 6.0 (5.0-7.0) 04/11/20 Unknown Ur Specific [place] 1.015 (1.003-1.030) 04/11/20 Unknown Urine Protein <30 mg dl mg/dL (Negative) 04/11/20 Unknown Urine Glucose (UA) Negative mg/dL (Negative) 04/11/20 Unknown Urine Ketones 160 mg/dL (Negative) 04/11/20 Unknown Urine Blood Trace (Negative) 04/11/20 Unknown Urine Nitrite Negative (Negative) 04/11/20 Unknown Ur Reducing Substances Not Reportable 04/11/20 Unknown Urine Bilirubin Moderate (Negative) 04/11/20 Unknown Urine Ictotest Negative (Negative) 04/11/20 Unknown Urine Urobilinogen < 0.2 mg/dL (<2.0) 04/11/20 Unknown Ur Leukocyte Esterase Trace (Negative) 04/11/20 Unknown Urine WBC (Auto) 8.0 /HPF (0.0-6.0) H 04/11/20 Unknown Urine RBC (Auto) 9.0 /HPF (0.0-6.0) 04/11/20 Unknown U Epithel Cells (Auto) 5.0 /HPF (0-13.0) 04/11/20 Unknown Urine Bacteria (Auto) 1+ /HPF (Negative) 04/11/20 Unknown Urine Mucus Few /HPF 04/11/20 Unknown Urine Yeast (Budding) 1+ /HPF 04/11/20 Unknown Coronavirus (PCR) Positive (Negative) A 04/10/20 15:16 SARS-CoV-2 IgG Ab Nonreactive (NonReactive) 04/10/20 10:25 Blood Type A POSITIVE 04/11/20 20:40 Antibody Screen Negative 04/11/20 20:40 Microbiology: Microbiology 04/09/20 18:31 Peripheral/Venous Blood Culture - Preliminary NO GROWTH AFTER 72 HOURS 04/09/20 18:23 Peripheral/Venous Blood Culture - Preliminary NO GROWTH AFTER 72 HOURS Burt/IV: Voiding Method Toilet IV Catheter Type [Right Peripheral IV Antecubital] IV Catheter Type [Left Peripheral IV Antecubital] Active Medications - Current Medications Current Medications: Generic Name Dose Route Start Last Admin Trade Name Freq PRN Reason Stop Dose Admin Acetaminophen 650 mg 04/09/20 20:40 04/12/20 11:33 Tylenol PO 650 mg Q4H PRN Administration Pain MILD(1-3)/Fever >100.5/FINK Albuterol 2 puff 04/10/20 10:12 04/13/20 09:31 Proair IH 2 puff Q6HRT PRN Administration Shortness Of Breath Arformoterol Tartrate 15 mcg 04/10/20 09:30 04/13/20 09:30 Brovana Nebu IH Not Given Q12HRT [facility] Budesonide 0.5 mg 04/10/20 09:15 04/13/20 09:30 Pulmicort IH Not Given Q12HRT MO Docusate Sodium 100 mg 04/09/20 20:40 04/13/20 10:00 Colace PO 100 mg Q12H PRN Administration Constipation Guaifenesin 10 ml 04/09/20 20:40 Guaifenesin Dm Syrup PO Q6H PRN Cough Ceftriaxone Sodium 2 gm in 100 mls @ 200 mls/hr 04/09/20 19:30 04/11/20 20:15 Rocephin/Ns 2 Gm/100 Ml IV 04/13/20 19:59 200 mls/hr Q24H MO Administration Protocol Lactated Ringer's 1,000 mls @ 50 mls/hr 04/09/20 20:45 04/10/20 23:46 Lactated Ringers IV 75 mls/hr DIRECT MO Administration REMDESIVIR 100 mg/ Sodium 250 mls @ 500 mls/hr 04/11/20 21:00 04/12/20 21:44 Chloride IV 04/14/20 21:29 500 mls/hr Q24HR@2100 MO Administration Multivitamins/Iron/Calcium 1 each 04/10/20 10:00 04/13/20 10:00 Vitamin PO Not Given QDAY [facility] Ondansetron HCl 4 mg 04/09/20 20:40 Zofran IV Q6H PRN Nausea And Vomiting Sodium Chloride 2 spray 04/09/20 20:40 Deep Sea NS Q4H PRN Congestion Sodium Chloride 50 ml 04/10/20 21:00 Nacl 0.9% IV 04/14/20 21:01 Q24HR@2100 [facility]
[2020-04-13] MEDS: LACTATED RINGERS 1,000 ML IV SCH (18:53)
[2020-04-13] MEDS: cefTRIAXone/NS 2 GM/100 ML 2 GM/100 ML BAG IV SCH (20:27)
[2020-04-13] MEDS: REMDESIVIR 100 MG in SODIUM CHLORIDE 0.9% 250ML 250 ML IV SCH (21:47)
--- NOTE | 2020-04-14 07:37 | Progress Note ---
Assessment and Plan Cultures: Blood culture 04/09/2020 no growth today SARS CoV2 PCR positive SARS CoV2 IgG negative Assessment: 25 years old female with history of asthma, thalassemia carrier currently with 34 weeks of admitted on 04/09/2020 secondary to a week history of generalized malaise, body aches, cough and shortness of breath as well as 2 days of irregular contractions: #Severe sepsis: With tachycardia, tachypnea, hypoxia, improving, likely due to bilateral pneumonia. #Severe COVID pneumonia: Chest x-ray with bilateral multifocal pneumonia. Inflammatory markers elevated. Markers improving. Ferritin normal. Pr ocalcitonin 0.4. ? Slightly up will consider a bacterial component. Venous ultrasound no DVT. #Acute hypoxemic respiratory failure: Initial O2 sat dropped to 89%. Oxygenation improving. Now on room air. #: 34 weeks. Recommendations: - Obtain 6-min walking O2 sat test if passes ok to d/c home - Completed dexamethasone - Completed ceftriaxone and azithromycin - Continue remdesivir x 5 days -day 5 of 5 - SARS-CoV-2 IgG negative, patient may benefit from Covid convalescent plasma if hypoxia does not get better, currently improving - Monitor inflammatory markers - ferritin, Ddimer, CRP, LDH every 48 hours - Monitor liver function test on Remdesivir - Continue anticoagulation per System Protocol - Pulmonary on board - Close monitoring All laboratory, cultures and imaging were reviewed. Will follow Charlee Ruth MD Infectious Diseases [facility] ([facility]) M [phone] O [phone] Subjective Date of service: 04/14/20 Principal diagnosis: COVID-19, Bilateral Pneumonia, IUP at 34w5d Interval history: Remains afebrile now on room air Objective - Exam Narrative Exam: Physical Exam: reviewed ED and hospitalist notes, limited due to conservation of PPE and decrease risk of transmission. General appearance: limited due to conservation of PPE Eyes: limited due to conservation of PPE HENT: Atraumatic; limited due to conservation of PPE Lungs: limited due to conservation of PPE CV: limited due to conservation of PPE Abdomen: limited due to conservation of PPE Extremities: limited due to conservation of PPE Skin: limited due to conservation of PPE Psych: limited due to conservation of PPE Neuro: limited due to conservation of PPE - Constitutional Vitals: Vital Signs Temp Pulse Resp BP Pulse Ox 98.2 F 76 18 112/72 96 04/13/20 20:04 04/14/20 07:30 04/13/20 20:04 04/14/20 07:16 04/14/20 07:30 Temperature -Last 24 Hours Temperature 98.2 F Temperature 98.2 F Temperature 97.9 F Temperature 97.9 F - Labs CBC & Chem 7: 04/12/20 06:56 04/12/20 06:56
[2020-04-14] MEDS: LACTATED RINGERS 1,000 ML IV SCH (09:10)
--- NOTE | 2020-04-14 09:23 | Progress Note ---
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 We been consulted to assist in management as she is noted to be tachypneic requiring 7 L of oxygen. On arrival the patient reports shortness of breath worse with exertion. She is 3 para 10 and does not recall having this severe shortness of breath during her other pregnancies. During our conversation she is noted to have 98% saturation while off the oxygen as she states that the high flow is uncomfortable to put in. Her spouse was in the room states that she has not been able to keep any food down that she does not like the taste of food she denies any loss of sensation of taste or smell at this time. She was not clear if she has nasal congestion but states that the force of the oxygen was more of a problem. She denies any fever nausea vomiting or diarrhea except as is associated with her normal . Chest x-ray concerning for bilateral infiltrates in the bases 04/11: Continue supportive care wean oxygen as tolerated. Follow results of the COVID-19. Covid 19 antibodies are negative at this time. 04/13: Patient was seen by colleague yesterday, today no new complaints. 04/14: Patient seen and examined, down to room air. No new complaints and ambula tory. Acute shortness of breath without hypoxia COVID 19 Pneumonia Upper respiratory patient's infectious with bilateral infiltrates in the chest concerning for pneumonia Rule out sepsis Systemic inflammatory response syndrome without organ dysfunction at 34 weeks Plan Continue supportive care oxygen as tolerated for work of breathing Stop IV fluids if possible Monitor saturation closely and if desaturation or increased work of breathing need to alert on any hospitalization Continue with steroids Patient discussed with ribbon blockmaker and agree with recommendation guarded prognosis he has already spoken with the OB physician over the phone due to Infectious disease consulted will await their input DVT and GI prophylaxis History Interval history: Patient seen and examined resting comfortably no new complaints at this time. Hospitalist Physical - Physical exam Narrative exam: VITAL SIGNS: Reviewed. GENERAL: The patient appears normally developed, visually observed with no noted increased work of breathing able to speak complete sentences. She reports feeling better compared to yesterday and slept all night all other exams deferred at this time due to global pandemic and patient is a PUI. And an effort to conserve PPE vital signs as documented. - Constitutional Vitals: Temp Pulse Resp BP Pulse Ox 97.7 F 80 16 107/64 94 04/14/20 09:00 04/14/20 09:19 04/14/20 09:00 04/14/20 09:05 04/14/20 09:19 General appearance: Present: no acute distress Results - Labs CBC & Chem 7: 04/12/20 06:56 04/12/20 06:56 Labs: Laboratory Last Values WBC 7.7 K/mm3 (4.5-11.0) 04/12/20 06:56 RBC 3.56 M/mm3 (3.65-5.03) L 04/12/20 06:56 Hgb 9.2 gm/dl (10.1-14.3) L 04/12/20 06:56 Hct 28.6 % (30.3-42.9) L 04/12/20 06:56 MCV 80 fl (79-97) 04/12/20 06:56 MCH 26 pg (28-32) L 04/12/20 06:56 MCHC 32 % (30-34) 04/12/20 06:56 RDW 15.0 % (13.2-15.2) 04/12/20 06:56 Plt Count 294 K/mm3 (140-440) 04/12/20 06:56 Lymph % (Auto) 12.4 % (13.4-35.0) L 04/11/20 11:08 [place] % (Auto) 6.8 % (0.0-7.3) 04/11/20 11:08 Eos % (Auto) 0.0 % (0.0-4.3) 04/11/20 11:08 Baso % (Auto) 0.1 % (0.0-1.8) 04/11/20 11:08 Lymph # (Auto) 1.0 K/mm3 (1.2-5.4) L 04/11/20 11:08 [place] # (Auto) 0.6 K/mm3 (0.0-0.8) 04/11/20 11:08 Eos # (Auto) 0.0 K/mm3 (0.0-0.4) 04/11/20 11:08 Baso # (Auto) 0.0 K/mm3 (0.0-0.1) 04/11/20 11:08 Seg Neutrophils % 80.7 % (40.0-70.0) H 04/11/20 11:08 Seg Neutrophils # 6.6 K/mm3 (1.8-7.7) 04/11/20 11:08 D-Dimer 555.67 ng/mlDDU (0-234) H 04/12/20 13:44 ABG pH 7.38 (7.320-7.450) 04/10/20 06:45 POC ABG pCO2 25.8 mmHg (32.0-48.0) L 04/10/20 06:45 POC ABG pO2 72.1 mmHg (83-108) L 04/10/20 06:45 POC ABG HCO3 15.0 04/10/20 06:45 POC ABG Base Excess -8.8 04/10/20 06:45 ABG Hemoglobin 9.7 (12.0-17.5) L 04/10/20 06:45 ABG Sodium 133.3 mmol/L (136.0-145.0) L 04/10/20 06:45 ABG Potassium 2.4 mmol/L (3.40-4.50) L 04/10/20 06:45 ABG Chloride 107.0 mmol/L (98-107) 04/10/20 06:45 ABG Glucose 71 mg/dL (65-95) 04/10/20 06:45 Sodium 139 mmol/L (137-145) 04/12/20 06:56 Potassium 3.6 mmol/L (3.6-5.0) 04/12/20 06:56 Chloride 108.7 mmol/L (98-107) H 04/12/20 06:56 Carbon Dioxide 18 mmol/L (22-30) L 04/12/20 06:56 Anion Gap 16 mmol/L 04/12/20 06:56 BUN 5 mg/dL (7-17) L 04/12/20 06:56 Creatinine 0.5 mg/dL (0.6-1.2) L 04/12/20 06:56 Estimated GFR > 60 ml/min 04/12/20 06:56 BUN/Creatinine Ratio 10 % 04/12/20 06:56 Glucose 93 mg/dL (65-100) 04/12/20 06:56 Lactic Acid 0.80 mmol/L (0.7-2.0) 04/09/20 20:56 Calcium 8.2 mg/dL (8.4-10.2) L 04/12/20 06:56 Ferritin 41.6 ng/mL (10.0-200.0) 04/12/20 13:44 Total Bilirubin 0.80 mg/dL (0.1-1.2) 04/11/20 11:08 AST 24 units/L (5-40) 04/11/20 11:08 ALT 17 units/L (7-56) 04/11/20 11:08 Alkaline Phosphatase 178 units/L (35-129) H 04/11/20 11:08 Lactate Dehydrogenase 263 units/L (91-180) H 04/12/20 13:44 C-Reactive Protein 1.60 mg/dL (0.00-1.30) H 04/12/20 13:44 Total Protein 6.3 g/dL (6.3-8.2) 04/11/20 11:08 Albumin 2.7 g/dL (3.9-5) L 04/11/20 11:08 Albumin/Globulin Ratio 0.8 % 04/11/20 11:08 Procalcitonin 0.46 ng/mL (<0.15) 04/09/20 18:23 Arterial Blood Glucose 71 mg/dL (65-95) 04/10/20 06:45 Arterial Blood Ionized Calcium 4.5 mg/dL (4.6-5.3) L 04/10/20 06:45 Urine Color Yellow (Yellow) 04/11/20 Unknown Urine Turbidity Clear (Clear) 04/11/20 Unknown Urine pH 6.0 (5.0-7.0) 04/11/20 Unknown Ur Specific [place] 1.015 (1.003-1.030) 04/11/20 Unknown Urine Protein <30 mg dl mg/dL (Negative) 04/11/20 Unknown Urine Glucose (UA) Negative mg/dL (Negative) 04/11/20 Unknown Urine Ketones 160 mg/dL (Negative) 04/11/20 Unknown Urine Blood Trace (Negative) 04/11/20 Unknown Urine Nitrite Negative (Negative) 04/11/20 Unknown Ur Reducing Substances Not Reportable 04/11/20 Unknown Urine Bilirubin Moderate (Negative) 04/11/20 Unknown Urine Ictotest Negative (Negative) 04/11/20 Unknown Urine Urobilinogen < 0.2 mg/dL (<2.0) 04/11/20 Unknown Ur Leukocyte Esterase Trace (Negative) 04/11/20 Unknown Urine WBC (Auto) 8.0 /HPF (0.0-6.0) H 04/11/20 Unknown Urine RBC (Auto) 9.0 /HPF (0.0-6.0) 04/11/20 Unknown U Epithel Cells (Auto) 5.0 /HPF (0-13.0) 04/11/20 Unknown Urine Bacteria (Auto) 1+ /HPF (Negative) 04/11/20 Unknown Urine Mucus Few /HPF 04/11/20 Unknown Urine Yeast (Budding) 1+ /HPF 04/11/20 Unknown Coronavirus (PCR) Positive (Negative) A 04/10/20 15:16 SARS-CoV-2 IgG Ab Nonreactive (NonReactive) 04/10/20 10:25 Blood Type A POSITIVE 04/11/20 20:40 Antibody Screen Negative 04/11/20 20:40 Microbiology: Microbiology 04/09/20 18:31 Peripheral/Venous Blood Culture - Preliminary NO GROWTH AFTER 4 DAYS 04/09/20 18:23 Peripheral/Venous Blood Culture - Preliminary NO GROWTH AFTER 4 DAYS Burt/IV: Voiding Method Toilet IV Catheter Type [Right Peripheral IV Antecubital] IV Catheter Type [Left Peripheral IV Antecubital] Active Medications - Current Medications Current Medications: Generic Name Dose Route Start Last Admin Trade Name Freq PRN Reason Stop Dose Admin Acetaminophen 650 mg 04/09/20 20:40 04/12/20 11:33 Tylenol PO 650 mg Q4H PRN Administration Pain MILD(1-3)/Fever >100.5/FINK Albuterol 2 puff 04/10/20 10:12 04/13/20 09:31 Proair IH 2 puff Q6HRT PRN Administration Shortness Of Breath Arformoterol Tartrate 15 mcg 04/10/20 09:30 04/13/20 09:30 Brovana Nebu IH Not Given Q12HRT [place] Budesonide 0.5 mg 04/10/20 09:15 04/13/20 09:30 Pulmicort IH Not Given Q12HRT [facility] Docusate Sodium 100 mg 04/09/20 20:40 04/13/20 10:00 Colace PO 100 mg Q12H PRN Administration Constipation Guaifenesin 10 ml 04/09/20 20:40 Guaifenesin Dm Syrup PO Q6H PRN Cough Lactated Ringer's 1,000 mls @ 50 mls/hr 04/09/20 20:45 04/14/20 09:10 Lactated Ringers IV 75 mls/hr DIRECT MO Administration REMDESIVIR 100 mg/ Sodium 250 mls @ 500 mls/hr 04/11/20 21:00 04/13/20 21:47 Chloride IV 04/14/20 21:29 500 mls/hr Q24HR@2100 [facility] Administration Multivitamins/Iron/Calcium 1 each 04/10/20 10:00 04/13/20 10:00 Vitamin PO Not Given QDAY [facility] Ondansetron HCl 4 mg 04/09/20 20:40 Zofran IV Q6H PRN Nausea And Vomiting Sodium Chloride 2 spray 04/09/20 20:40 [place] NS Q4H PRN Congestion Sodium Chloride 50 ml 04/10/20 21:00 Nacl 0.9% IV 04/14/20 21:01 Q24HR@2100 [facility]
--- NOTE | 2020-04-14 11:34 | Progress Note ---
Assessment and Plan 25 y/o female, 34wks admitted with dyspnea on exertion and tachypnea with abnormal CXR, concern for COVID 19 pneumonia. 04/14/2020: No objection to discharge. Agree with ambulatory walk test. 04/13/2020: Now down to room air. Will need ambulatory sat prior to discharge. Continue asthma therapy. Will continue to monitor. 04/12/2020: COVID positive. On Remdesivir and steroids. Agree with consenting for Convalescent plasma if oxygenation gets worse. Will continue to follow closely. Continue asthma therapy. Incentive alek to bedside and hepa filter in room if possible. If she starts to decompensate, I do not disagree with transfer. Currently our bed situation is better, at least for now, but no acute indication to transfer to our step down or ICU as of right now. Current use of HFNC is for tachypnea, not hypoxemia. Agree with VTE work up being done by ID. 04/11/2020: Follow up COVID test. Continue supplemental oxygen and wean for sats >88% and comfort. Continue steroid therapy. Appreciate ID help. Continue asthma therapy. 1. Agree with COVID 19 rule out 2. Would start patient on inhaled steroid therapy as well as inhaled long acting beta agonist. Spoke with RT for NICU who is covering the mother baby floor as well. Patient was actually satting 93% on room air but was just very tachypnic. They suggest Vapotherm to help with her work of breathing which I do not disagree with. Please keep in mind this was changed not secondary to desaturation but to improve work of breathing. 3. Agree with IV steroids. Assuming the increased dosage is secondary to 4. Please limit IVF's, we like to run these patients on the dry side as increased or execessive volume could worsen hypoxemia 5. likely not able to prone 6. Guarded prognosis. Spoke with OB attending over the phone, current bed status in IMCU and ICU is not good. Unable to take patient to either unit right now secondary to staffing. If she becomes acutely ill and requires more oxygen then will need transfer to another facility unless our staffing can be improved. Guarded prognosis. Subjective Date of service: 04/14/20 Principal diagnosis: COVID-19, Bilateral Pneumonia, IUP at 34w5d Interval history: No acute events. REmains on room air. Objective Vital Signs - 12hr 1204/13/20 04/13/20 23:34 23:39 23:44 Temperature Pulse Rate 94 H 91 H 90 Respiratory Rate Blood Pressure Blood Pressure [Right] O2 Sat by Pulse 99 99 98 Oximetry 04/13/20 04/13/20 04/13/20 23:49 23:54 23:56 Temperature Pulse Rate 87 92 H 96 H Respiratory Rate Blood Pressure Blood Pressure [Right] O2 Sat by Pulse 98 97 92 Oximetry 04/13/20 04/14/20 04/14/20 23:59 00:04 00:09 Temperature Pulse Rate 98 H 84 86 Respiratory Rate Blood Pressure Blood Pressure [Right] O2 Sat by Pulse 96 99 99 Oximetry 04/14/20 04/14/20 04/14/20 00:14 00:16 00:19 Temperature Pulse Rate 97 H 104 H 93 H Respiratory Rate Blood Pressure Blood Pressure [Right] O2 Sat by Pulse 98 89 98 Oximetry 04/14/20 04/14/20 04/14/20 00:21 00:24 00:29 Temperature Pulse Rate 97 H 102 H 85 Respiratory Rate Blood Pressure Blood Pressure [Right] O2 Sat by Pulse 92 95 97 Oximetry 04/14/20 04/14/20 04/14/20 00:32 00:34 00:39 Temperature Pulse Rate 96 H 96 H 109 H Respiratory Rate Blood Pressure 98/56 Blood Pressure [Right] O2 Sat by Pulse 97 96 Oximetry 04/14/20 04/14/20 04/14/20 00:44 00:49 00:54 Temperature Pulse Rate 128 H 110 H 98 H Respiratory Rate Blood Pressure Blood Pressure [Right] O2 Sat by Pulse 97 97 97 Oximetry 04/14/20 04/14/20 04/14/20 00:59 01:04 01:09 Temperature Pulse Rate 106 H 93 H 99 H Respiratory Rate Blood Pressure Blood Pressure [Right] O2 Sat by Pulse 97 98 97 Oximetry 04/14/20 04/14/20 04/14/20 01:14 01:19 01:24 Temperature Pulse Rate 85 86 85 Respiratory Rate Blood Pressure Blood Pressure [Right] O2 Sat by Pulse 97 98 99 Oximetry 04/14/20 04/14/20 04/14/20 01:29 01:32 01:34 Temperature Pulse Rate 83 83 78 Respiratory Rate Blood Pressure 109/66 Blood Pressure [Right] O2 Sat by Pulse 98 98 Oximetry 04/14/20 04/14/20 04/14/20 01:39 01:44 01:49 Temperature Pulse Rate 82 79 77 Respiratory Rate Blood Pressure Blood Pressure [Right] O2 Sat by Pulse 98 97 97 Oximetry 04/14/20 04/14/20 04/14/20 01:54 01:59 02:04 Temperature Pulse Rate 85 84 101 H Respiratory Rate Blood Pressure Blood Pressure [Right] O2 Sat by Pulse 97 97 98 Oximetry 04/14/20 04/14/20 04/14/20 02:09 02:14 02:19 Temperature Pulse Rate 83 85 100 H Respiratory Rate Blood Pressure Blood Pressure [Right] O2 Sat by Pulse 97 98 98 Oximetry 04/14/20 04/14/20 04/14/20 02:24 02:29 02:30 Temperature Pulse Rate 77 102 H 99 H Respiratory Rate Blood Pressure Blood Pressure [Right] O2 Sat by Pulse 98 97 94 Oximetry 04/14/20 04/14/20 04/14/20 02:32 02:34 02:39 Temperature Pulse Rate 99 H 96 H 83 Respiratory Rate Blood Pressure 125/70 Blood Pressure [Right] O2 Sat by Pulse 97 98 Oximetry 04/14/20 04/14/20 04/14/20 02:44 02:49 02:54 Temperature Pulse Rate 78 82 75 Respiratory Rate Blood Pressure Blood Pressure [Right] O2 Sat by Pulse 99 98 98 Oximetry 04/14/20 04/14/20 04/14/20 02:59 03:04 03:09 Temperature Pulse Rate 101 H 81 69 Respiratory Rate Blood Pressure Blood Pressure [Right] O2 Sat by Pulse 98 98 98 Oximetry 04/14/20 04/14/20 04/14/20 03:14 03:19 03:24 Temperature Pulse Rate 85 77 84 Respiratory Rate Blood Pressure Blood Pressure [Right] O2 Sat by Pulse 98 99 99 Oximetry 04/14/20 04/14/20 04/14/20 03:29 03:32 03:34 Temperature Pulse Rate 80 79 73 Respiratory Rate Blood Pressure 102/58 Blood Pressure [Right] O2 Sat by Pulse 97 98 Oximetry 04/14/20 04/14/20 04/14/20 03:39 03:44 03:49 Temperature Pulse Rate 80 76 84 Respiratory Rate Blood Pressure Blood Pressure [Right] O2 Sat by Pulse 99 98 98 Oximetry 04/14/20 04/14/20 04/14/20 03:54 03:59 04:04 Temperature Pulse Rate 89 92 H 112 H Respiratory Rate Blood Pressure Blood Pressure [Right] O2 Sat by Pulse 99 99 99 Oximetry 04/14/20 04/14/20 04/14/20 04:09 04:14 04:19 Temperature Pulse Rate 79 76 79 Respiratory Rate Blood Pressure Blood Pressure [Right] O2 Sat by Pulse 97 97 97 Oximetry 04/14/20 04/14/20 04/14/20 04:24 04:29 04:32 Temperature Pulse Rate 78 68 81 Respiratory Rate Blood Pressure 126/65 Blood Pressure [Right] O2 Sat by Pulse 97 97 Oximetry 04/14/20 04/14/20 04/14/20 04:34 04:39 04:44 Temperature Pulse Rate 78 72 104 H Respiratory Rate Blood Pressure Blood Pressure [Right] O2 Sat by Pulse 98 98 97 Oximetry 04/14/20 04/14/20 04/14/20 04:49 04:54 04:59 Temperature Pulse Rate 77 78 75 Respiratory Rate Blood Pressure Blood Pressure [Right] O2 Sat by Pulse 96 97 97 Oximetry 04/14/20 04/14/20 04/14/20 05:04 05:09 05:14 Temperature Pulse Rate 87 74 74 Respiratory Rate Blood Pressure Blood Pressure [Right] O2 Sat by Pulse 96 96 96 Oximetry 04/14/20 04/14/20 04/14/20 05:19 05:24 05:29 Temperature Pulse Rate 72 76 78 Respiratory Rate Blood Pressure Blood Pressure [Right] O2 Sat by Pulse 97 97 96 Oximetry 04/14/20 04/14/20 04/14/20 05:32 05:34 05:39 Temperature Pulse Rate 76 81 99 H Respiratory Rate Blood Pressure 107/60 Blood Pressure [Right] O2 Sat by Pulse 95 96 Oximetry 04/14/20 04/14/20 04/14/20 05:44 05:49 05:54 Temperature Pulse Rate 77 81 75 Respiratory Rate Blood Pressure Blood Pressure [Right] O2 Sat by Pulse 96 96 97 Oximetry 04/14/20 04/14/20 04/14/20 05:59 06:04 06:09 Temperature Pulse Rate 81 81 76 Respiratory Rate Blood Pressure Blood Pressure [Right] O2 Sat by Pulse 97 96 97 Oximetry 04/14/20 04/14/20 04/14/20 06:14 06:19 06:24 Temperature Pulse Rate 72 85 75 Respiratory Rate Blood Pressure Blood Pressure [Right] O2 Sat by Pulse 97 97 96 Oximetry 04/14/20 04/14/20 04/14/20 06:29 06:32 06:34 Temperature Pulse Rate 76 108 H 107 H Respiratory Rate Blood Pressure 163/92 Blood Pressure [Right] O2 Sat by Pulse 97 96 Oximetry 04/14/20 04/14/20 04/14/20 06:40 06:45 06:50 Temperature Pulse Rate 110 H 100 H 79 Respiratory Rate Blood Pressure Blood Pressure [Right] O2 Sat by Pulse 93 96 96 Oximetry 04/14/20 04/14/20 04/14/20 06:55 07:00 07:05 Temperature Pulse Rate 79 79 75 Respiratory Rate Blood Pressure Blood Pressure [Right] O2 Sat by Pulse 97 98 98 Oximetry 04/14/20 04/14/20 04/14/20 07:10 07:15 07:16 Temperature Pulse Rate 93 H 85 88 Respiratory Rate Blood Pressure 112/72 Blood Pressure [Right] O2 Sat by Pulse 98 98 Oximetry 04/14/20 04/14/20 04/14/20 07:20 07:25 07:30 Temperature Pulse Rate 87 92 H 76 Respiratory Rate Blood Pressure Blood Pressure [Right] O2 Sat by Pulse 97 97 96 Oximetry 04/14/20 04/14/20 04/14/20 07:35 07:40 07:45 Temperature Pulse Rate 80 89 84 Respiratory Rate Blood Pressure Blood Pressure [Right] O2 Sat by Pulse 97 97 98 Oximetry 04/14/20 04/14/20 04/14/20 07:50 07:55 07:57 Temperature Pulse Rate 80 100 H 105 H Respiratory Rate Blood Pressure Blood Pressure [Right] O2 Sat by Pulse 97 98 93 Oximetry 04/14/20 04/14/20 04/14/20 08:00 08:05 08:10 Temperature Pulse Rate 70 72 71 Respiratory Rate Blood Pressure Blood Pressure [Right] O2 Sat by Pulse 98 98 97 Oximetry 04/14/20 04/14/20 04/14/20 08:15 08:20 08:25 Temperature Pulse Rate 73 69 83 Respiratory Rate Blood Pressure Blood Pressure [Right] O2 Sat by Pulse 99 99 98 Oximetry 04/14/20 04/14/20 04/14/20 08:30 08:32 08:35 Temperature Pulse Rate 84 64 76 Respiratory Rate Blood Pressure 99/64 Blood Pressure [Right] O2 Sat by Pulse 98 99 Oximetry 04/14/20 04/14/20 04/14/20 08:40 08:45 08:50 Temperature Pulse Rate 84 79 81 Respiratory Rate Blood Pressure Blood Pressure [Right] O2 Sat by Pulse 99 98 98 Oximetry 04/14/20 04/14/20 04/14/20 08:55 09:00 09:05 Temperature 97.7 F Pulse Rate 79 80 83 Respiratory 16 Rate Blood Pressure 107/64 Blood Pressure 107/64 [Right] O2 Sat by Pulse 98 96 97 Oximetry 04/14/20 04/14/20 04/14/20 09:10 09:15 09:18 Temperature Pulse Rate 82 81 84 Respiratory Rate Blood Pressure Blood Pressure [Right] O2 Sat by Pulse 97 97 96 Oximetry 04/14/20 04/14/20 04/14/20 09:19 09:23 09:28 Temperature Pulse Rate 80 81 82 Respiratory Rate Blood Pressure Blood Pressure [Right] O2 Sat by Pulse 94 97 96 Oximetry 04/14/20 04/14/20 04/14/20 09:33 09:35 09:38 Temperature Pulse Rate 80 89 76 Respiratory Rate Blood Pressure Blood Pressure [Right] O2 Sat by Pulse 97 93 95 Oximetry 04/14/20 04/14/20 04/14/20 09:43 09:48 09:53 Temperature Pulse Rate 79 82 69 Respiratory Rate Blood Pressure Blood Pressure [Right] O2 Sat by Pulse 96 96 96 Oximetry 04/14/20 04/14/20 04/14/20 09:58 10:03 10:08 Temperature Pulse Rate 73 72 80 Respiratory Rate Blood Pressure Blood Pressure [Right] O2 Sat by Pulse 96 97 96 Oximetry 04/14/20 04/14/20 04/14/20 10:13 10:18 10:23 Temperature Pulse Rate 79 75 92 H Respiratory Rate Blood Pressure 110/70 Blood Pressure [Right] O2 Sat by Pulse 97 97 97 Oximetry 04/14/20 04/14/20 04/14/20 10:28 10:33 10:38 Temperature Pulse Rate 96 H 80 81 Respiratory Rate Blood Pressure Blood Pressure [Right] O2 Sat by Pulse 95 97 96 Oximetry 04/14/20 04/14/20 04/14/20 10:43 10:48 10:53 Temperature Pulse Rate 79 78 86 Respiratory Rate Blood Pressure Blood Pressure [Right] O2 Sat by Pulse 96 97 97 Oximetry 04/14/20 04/14/20 04/14/20 10:58 11:03 11:05 Temperature Pulse Rate 75 75 78 Respiratory Rate Blood Pressure Blood Pressure [Right] O2 Sat by Pulse 96 96 93 Oximetry 04/14/20 04/14/20 04/14/20 11:08 11:11 11:13 Temperature Pulse Rate 77 74 85 Respiratory Rate Blood Pressure Blood Pressure [Right] O2 Sat by Pulse 96 94 95 Oximetry 04/14/20 04/14/20 04/14/20 11:16 11:18 11:21 Temperature Pulse Rate 77 78 79 Respiratory Rate Blood Pressure 105/59 Blood Pressure [Right] O2 Sat by Pulse 93 96 92 Oximetry 04/14/20 04/14/20 04/14/20 11:23 11:28 11:31 Temperature Pulse Rate 82 75 107 H Respiratory Rate Blood Pressure Blood Pressure [Right] O2 Sat by Pulse 96 96 94 Oximetry CBC and BMP: 04/12/20 06:56 04/12/20 06:56 ABG, PT/INR, D-dimer: ABG ABG pH 7.38 (7.320-7.450) 04/10/20 06:45 POC ABG pCO2 25.8 mmHg (32.0-48.0) L 04/10/20 06:45 POC ABG pO2 72.1 mmHg (83-108) L 04/10/20 06:45 POC ABG HCO3 15.0 04/10/20 06:45 PT/INR, D-dimer D-Dimer 555.67 ng/mlDDU (0-234) H 04/12/20 13:44 Abnormal lab findings: Abnormal Labs 04/09/20 04/09/20 04/09/20 18:23 18:23 18:23 RBC Hgb Hct MCH 26 L Lymph % (Auto) 13.2 L Lymph # (Auto) 1.0 L Seg Neutrophils % 80.5 H D-Dimer 896.32 H POC ABG pCO2 POC ABG pO2 ABG Hemoglobin ABG Sodium ABG Potassium Sodium 134 L Potassium 3.1 L Chloride Carbon Dioxide 17 L BUN 5 L Creatinine Calcium Alkaline Phosphatase 180 H Lactate Dehydrogenase C-Reactive Protein Albumin 3.1 L Arterial Blood Ionized Calcium Urine WBC (Auto) Coronavirus (PCR) 04/09/20 04/09/20 04/09/20 18:23 20:56 20:56 RBC Hgb Hct MCH Lymph % (Auto) Lymph # (Auto) Seg Neutrophils % D-Dimer 792.89 H POC ABG pCO2 POC ABG pO2 ABG Hemoglobin ABG Sodium ABG Potassium Sodium Potassium Chloride Carbon Dioxide BUN Creatinine Calcium Alkaline Phosphatase Lactate Dehydrogenase 244 H 224 H C-Reactive Protein 5.30 H 5.00 H Albumin Arterial Blood Ionized Calcium Urine WBC (Auto) Coronavirus (PCR) 04/10/20 04/10/20 04/11/20 06:45 15:16 11:08 RBC Hgb 9.9 L Hct MCH 27 L Lymph % (Auto) 12.4 L Lymph # (Auto) 1.0 L Seg Neutrophils % 80.7 H D-Dimer POC ABG pCO2 25.8 L POC ABG pO2 72.1 L ABG Hemoglobin 9.7 L ABG Sodium 133.3 L ABG Potassium 2.4 L Sodium Potassium Chloride Carbon Dioxide BUN Creatinine Calcium Alkaline Phosphatase Lactate Dehydrogenase C-Reactive Protein Albumin Arterial Blood Ionized Calcium 4.5 L Urine WBC (Auto) Coronavirus (PCR) Positive A 04/11/20 04/11/20 04/11/20 11:08 11:08 Unknown RBC Hgb Hct MCH Lymph % (Auto) Lymph # (Auto) Seg Neutrophils % D-Dimer 413.22 H POC ABG pCO2 POC ABG pO2 ABG Hemoglobin ABG Sodium ABG Potassium Sodium Potassium Chloride 108.1 H Carbon Dioxide 16 L BUN 4 L Creatinine 0.5 L Calcium Alkaline Phosphatase 178 H Lactate Dehydrogenase 256 H C-Reactive Protein 4.40 H Albumin 2.7 L Arterial Blood Ionized Calcium Urine WBC (Auto) 8.0 H Coronavirus (PCR) 04/12/20 04/12/20 04/12/20 06:56 06:56 13:44 RBC 3.56 L Hgb 9.2 L Hct 28.6 L MCH 26 L Lymph % (Auto) Lymph # (Auto) Seg Neutrophils % D-Dimer 555.67 H POC ABG pCO2 POC ABG pO2 ABG Hemoglobin ABG Sodium ABG Potassium Sodium Potassium Chloride 108.7 H Carbon Dioxide 18 L BUN 5 L Creatinine 0.5 L Calcium 8.2 L Alkaline Phosphatase Lactate Dehydrogenase C-Reactive Protein Albumin Arterial Blood Ionized Calcium Urine WBC (Auto) Coronavirus (PCR) 04/12/20 13:44 RBC Hgb Hct MCH Lymph % (Auto) Lymph # (Auto) Seg Neutrophils % D-Dimer POC ABG pCO2 POC ABG pO2 ABG Hemoglobin ABG Sodium ABG Potassium Sodium Potassium Chloride Carbon Dioxide BUN Creatinine Calcium Alkaline Phosphatase Lactate Dehydrogenase 263 H C-Reactive Protein 1.60 H Albumin Arterial Blood Ionized Calcium Urine WBC (Auto) Coronavirus (PCR) [facility] notes reviewed: RT
[2020-04-14] MEDS: ARFORMOTEROL 15 MCG/2 ML NEBU IH SCH (11:43)
[2020-04-14] MEDS: BUDESONIDE 0.5 MG/2 ML NEBU IH SCH (11:43)
[2020-04-14] MEDS: guaiFENesin DM 200/20 MG ORAL LIQD 10 ML PO PRN ×2 (15:52→22:26)
--- NOTE | 2020-04-14 18:15 | Progress Note ---
Assessment and Plan A: IUP at 34w6d COVID 19 bilateral pneumonia, currently resting comfortably on room air, sats documented ~95-96; clinically improving ID, Pulmonology and Hospitalists following and appreciated Asthma GBS unknown P: Continue supportive care -patient on Day 3/4 of Remdisivir, with plan for infusion tonight -Pulmonary/hospitalist notes reviewed -reassess in AM with discharge planning Subjective - Subjective Principal diagnosis: COVID-19, Bilateral Pneumonia, IUP at 34w6d Patient reports: movement normal, contractions (irregular ), other (Pt reports feeling better and she desires discharge. She notes good movement and no obstetric complaints. [employer] Specialist notes reviewed and appreciated. ), no new complaints, no loss of fluid, no vaginal bleeding Objective - Vital Signs Vital Signs: Vital Signs - 12hr 04/14/20 04/14/20 04/14/20 06:14 06:19 06:24 Temperature Pulse Rate 72 85 75 Respiratory Rate Blood Pressure Blood Pressure [Right] O2 Sat by Pulse 97 97 96 Oximetry 04/14/20 04/14/20 04/14/20 06:29 06:32 06:34 Temperature Pulse Rate 76 108 H 107 H Respiratory Rate Blood Pressure 163/92 Blood Pressure [Right] O2 Sat by Pulse 97 96 Oximetry 04/14/20 04/14/20 04/14/20 06:40 06:45 06:50 Temperature Pulse Rate 110 H 100 H 79 Respiratory Rate Blood Pressure Blood Pressure [Right] O2 Sat by Pulse 93 96 96 Oximetry 04/14/20 04/14/20 04/14/20 06:55 07:00 07:05 Temperature Pulse Rate 79 79 75 Respiratory Rate Blood Pressure Blood Pressure [Right] O2 Sat by Pulse 97 98 98 Oximetry 04/14/20 04/14/20 04/14/20 07:10 07:15 07:16 Temperature Pulse Rate 93 H 85 88 Respiratory Rate Blood Pressure 112/72 Blood Pressure [Right] O2 Sat by Pulse 98 98 Oximetry 04/14/20 04/14/20 04/14/20 07:20 07:25 07:30 Temperature Pulse Rate 87 92 H 76 Respiratory Rate Blood Pressure Blood Pressure [Right] O2 Sat by Pulse 97 97 96 Oximetry 04/14/20 04/14/20 04/14/20 07:35 07:40 07:45 Temperature Pulse Rate 80 89 84 Respiratory Rate Blood Pressure Blood Pressure [Right] O2 Sat by Pulse 97 97 98 Oximetry 04/14/20 04/14/20 04/14/20 07:50 07:55 07:57 Temperature Pulse Rate 80 100 H 105 H Respiratory Rate Blood Pressure Blood Pressure [Right] O2 Sat by Pulse 97 98 93 Oximetry 04/14/20 04/14/20 04/14/20 08:00 08:05 08:10 Temperature Pulse Rate 70 72 71 Respiratory Rate Blood Pressure Blood Pressure [Right] O2 Sat by Pulse 98 98 97 Oximetry 04/14/20 04/14/20 04/14/20 08:15 08:20 08:25 Temperature Pulse Rate 73 69 83 Respiratory Rate Blood Pressure Blood Pressure [Right] O2 Sat by Pulse 99 99 98 Oximetry 04/14/20 04/14/20 04/14/20 08:30 08:32 08:35 Temperature Pulse Rate 84 64 76 Respiratory Rate Blood Pressure 99/64 Blood Pressure [Right] O2 Sat by Pulse 98 99 Oximetry 04/14/20 04/14/20 04/14/20 08:40 08:45 08:50 Temperature Pulse Rate 84 79 81 Respiratory Rate Blood Pressure Blood Pressure [Right] O2 Sat by Pulse 99 98 98 Oximetry 04/14/20 04/14/20 04/14/20 08:55 09:00 09:05 Temperature 97.7 F Pulse Rate 79 80 83 Respiratory 16 Rate Blood Pressure 107/64 Blood Pressure 107/64 [Right] O2 Sat by Pulse 98 96 97 Oximetry 04/14/20 04/14/20 04/14/20 09:10 09:15 09:18 Temperature Pulse Rate 82 81 84 Respiratory Rate Blood Pressure Blood Pressure [Right] O2 Sat by Pulse 97 97 96 Oximetry 04/14/20 04/14/20 04/14/20 09:19 09:23 09:28 Temperature Pulse Rate 80 81 82 Respiratory Rate Blood Pressure Blood Pressure [Right] O2 Sat by Pulse 94 97 96 Oximetry 04/14/20 04/14/20 04/14/20 09:33 09:35 09:38 Temperature Pulse Rate 80 89 76 Respiratory Rate Blood Pressure Blood Pressure [Right] O2 Sat by Pulse 97 93 95 Oximetry 04/14/20 04/14/20 04/14/20 09:43 09:48 09:53 Temperature Pulse Rate 79 82 69 Respiratory Rate Blood Pressure Blood Pressure [Right] O2 Sat by Pulse 96 96 96 Oximetry 04/14/20 04/14/20 04/14/20 09:58 10:03 10:08 Temperature Pulse Rate 73 72 80 Respiratory Rate Blood Pressure Blood Pressure [Right] O2 Sat by Pulse 96 97 96 Oximetry 04/14/20 04/14/20 04/14/20 10:13 10:18 10:23 Temperature Pulse Rate 79 75 92 H Respiratory Rate Blood Pressure 110/70 Blood Pressure [Right] O2 Sat by Pulse 97 97 97 Oximetry 04/14/20 04/14/20 04/14/20 10:28 10:33 10:38 Temperature Pulse Rate 96 H 80 81 Respiratory Rate Blood Pressure Blood Pressure [Right] O2 Sat by Pulse 95 97 96 Oximetry 04/14/20 04/14/20 04/14/20 10:43 10:48 10:53 Temperature Pulse Rate 79 78 86 Respiratory Rate Blood Pressure Blood Pressure [Right] O2 Sat by Pulse 96 97 97 Oximetry 04/14/20 04/14/20 04/14/20 10:58 11:03 11:05 Temperature Pulse Rate 75 75 78 Respiratory Rate Blood Pressure Blood Pressure [Right] O2 Sat by Pulse 96 96 93 Oximetry 04/14/20 04/14/20 04/14/20 11:08 11:11 11:13 Temperature Pulse Rate 77 74 85 Respiratory Rate Blood Pressure Blood Pressure [Right] O2 Sat by Pulse 96 94 95 Oximetry 04/14/20 04/14/20 04/14/20 11:16 11:18 11:21 Temperature Pulse Rate 77 78 79 Respiratory Rate Blood Pressure 105/59 Blood Pressure [Right] O2 Sat by Pulse 93 96 92 Oximetry 04/14/20 04/14/20 04/14/20 11:23 11:28 11:31 Temperature Pulse Rate 82 75 107 H Respiratory Rate Blood Pressure Blood Pressure [Right] O2 Sat by Pulse 96 96 94 Oximetry 04/14/20 04/14/20 04/14/20 11:33 11:38 11:43 Temperature Pulse Rate 102 H 78 90 Respiratory Rate Blood Pressure Blood Pressure [Right] O2 Sat by Pulse 95 96 96 Oximetry 04/14/20 04/14/20 04/14/20 11:48 11:53 11:58 Temperature Pulse Rate 84 88 86 Respiratory Rate Blood Pressure Blood Pressure [Right] O2 Sat by Pulse 96 96 96 Oximetry 04/14/20 04/14/20 04/14/20 12:03 12:08 12:13 Temperature Pulse Rate 89 89 75 Respiratory Rate Blood Pressure Blood Pressure [Right] O2 Sat by Pulse 97 97 99 Oximetry 04/14/20 04/14/20 04/14/20 12:18 12:23 12:28 Temperature Pulse Rate 79 78 78 Respiratory Rate Blood Pressure 104/62 Blood Pressure [Right] O2 Sat by Pulse 98 97 97 Oximetry 04/14/20 04/14/20 04/14/20 12:33 12:35 12:38 Temperature Pulse Rate 76 79 Respiratory Rate Blood Pressure Blood Pressure [Right] O2 Sat by Pulse 96 99 97 Oximetry 04/14/20 04/14/20 04/14/20 12:43 12:48 12:53 Temperature Pulse Rate 90 80 86 Respiratory Rate Blood Pressure Blood Pressure [Right] O2 Sat by Pulse 96 97 96 Oximetry 04/14/20 04/14/20 04/14/20 13:05 13:10 13:15 Temperature Pulse Rate 94 H 111 H 90 Respiratory Rate Blood Pressure Blood Pressure [Right] O2 Sat by Pulse 95 95 96 Oximetry 04/14/20 04/14/20 04/14/20 13:18 13:20 13:25 Temperature Pulse Rate 80 81 94 H Respiratory Rate Blood Pressure 111/70 Blood Pressure [Right] O2 Sat by Pulse 96 97 Oximetry 04/14/20 04/14/20 04/14/20 13:30 13:35 13:40 Temperature Pulse Rate 101 H 89 88 Respiratory Rate Blood Pressure Blood Pressure [Right] O2 Sat by Pulse 97 96 98 Oximetry 04/14/20 04/14/20 04/14/20 13:41 13:45 13:48 Temperature Pulse Rate 92 H 89 95 H Respiratory Rate Blood Pressure Blood Pressure [Right] O2 Sat by Pulse 93 97 94 Oximetry 04/14/20 04/14/20 04/14/20 13:50 13:55 14:00 Temperature Pulse Rate 81 78 76 Respiratory Rate Blood Pressure Blood Pressure [Right] O2 Sat by Pulse 96 100 100 Oximetry 04/14/20 04/14/20 04/14/20 14:05 14:10 14:15 Temperature Pulse Rate 76 85 76 Respiratory Rate Blood Pressure Blood Pressure [Right] O2 Sat by Pulse 99 98 97 Oximetry 04/14/20 04/14/2020 14:18 14:20 14:25 Temperature Pulse Rate 78 75 74 Respiratory Rate Blood Pressure 98/54 Blood Pressure [Right] O2 Sat by Pulse 97 97 Oximetry 04/14/20 04/14/20 04/14/20 14:30 14:35 14:40 Temperature Pulse Rate 81 76 101 H Respiratory Rate Blood Pressure Blood Pressure [Right] O2 Sat by Pulse 98 98 97 Oximetry 04/14/20 04/14/20 04/14/20 14:45 14:50 14:55 Temperature Pulse Rate 84 81 88 Respiratory Rate Blood Pressure Blood Pressure [Right] O2 Sat by Pulse 97 97 97 Oximetry 04/14/20 04/14/20 04/14/20 15:00 15:05 15:08 Temperature Pulse Rate 94 H 84 101 H Respiratory Rate Blood Pressure Blood Pressure [Right] O2 Sat by Pulse 98 95 92 Oximetry 04/14/20 04/14/20 04/14/20 15:10 15:15 15:16 Temperature Pulse Rate 83 112 H 99 H Respiratory Rate Blood Pressure Blood Pressure [Right] O2 Sat by Pulse 98 96 94 Oximetry 04/14/20 04/14/20 04/14/20 15:18 15:20 15:25 Temperature Pulse Rate 90 82 84 Respiratory Rate Blood Pressure 108/65 Blood Pressure [Right] O2 Sat by Pulse 97 97 Oximetry 04/14/20 04/14/20 04/14/20 15:30 15:35 15:40 Temperature Pulse Rate 89 81 76 Respiratory Rate Blood Pressure Blood Pressure [Right] O2 Sat by Pulse 97 98 98 Oximetry 04/14/20 04/14/20 04/14/20 15:45 15:50 15:55 Temperature Pulse Rate 91 H 89 79 Respiratory Rate Blood Pressure Blood Pressure [Right] O2 Sat by Pulse 97 98 97 Oximetry 04/14/20 04/14/20 04/14/20 16:00 16:05 16:10 Temperature Pulse Rate 80 87 82 Respiratory Rate Blood Pressure Blood Pressure [Right] O2 Sat by Pulse 98 93 96 Oximetry 04/14/20 04/14/20 04/14/20 16:15 16:18 16:19 Temperature Pulse Rate 84 85 85 Respiratory Rate Blood Pressure 114/65 Blood Pressure [Right] O2 Sat by Pulse 96 86 Oximetry 04/14/20 04/14/20 04/14/20 16:20 16:25 16:30 Temperature Pulse Rate 109 H 84 90 Respiratory Rate Blood Pressure Blood Pressure [Right] O2 Sat by Pulse 97 97 97 Oximetry 04/14/20 04/14/20 04/14/20 16:35 16:40 16:45 Temperature Pulse Rate 103 H 82 108 H Respiratory Rate Blood Pressure Blood Pressure [Right] O2 Sat by Pulse 97 98 97 Oximetry 04/14/20 04/14/20 04/14/20 16:50 17:03 17:06 Temperature Pulse Rate 113 H 113 H 102 H Respiratory Rate Blood Pressure Blood Pressure [Right] O2 Sat by Pulse 97 96 94 Oximetry 04/14/20 04/14/20 04/14/20 17:08 17:13 17:18 Temperature Pulse Rate 91 H 115 H 93 H Respiratory Rate Blood Pressure 107/61 Blood Pressure [Right] O2 Sat by Pulse 95 97 97 Oximetry 04/14/20 04/14/20 04/14/20 17:23 17:28 17:33 Temperature Pulse Rate 92 H 94 H 100 H Respiratory Rate Blood Pressure Blood Pressure [Right] O2 Sat by Pulse 98 97 97 Oximetry 04/14/20 04/14/20 04/14/20 17:38 17:43 17:48 Temperature Pulse Rate 95 H 98 H 95 H Respiratory Rate Blood Pressure Blood Pressure [Right] O2 Sat by Pulse 97 97 97 Oximetry 04/14/20 04/14/20 04/14/20 17:53 17:58 18:03 Temperature Pulse Rate 103 H 99 H 96 H Respiratory Rate Blood Pressure Blood Pressure [Right] O2 Sat by Pulse 97 97 96 Oximetry 04/14/20 18:08 Temperature Pulse Rate 100 H Respiratory Rate Blood Pressure Blood Pressure [Right] O2 Sat by Pulse 97 Oximetry - Exam Cardiovascular: Regular rate Lungs: Normal air movement Abdomen: Present: other (gravid) Uterus: Present: other (appropriate for [place]) FHR: category 1 Uterine Contraction Monitor Mode: External Uterine Contraction Pattern: Absent Uterine Tone Measurement Phase: Resting - Labs Labs: Abnormal Labs 04/09/20 04/09/20 04/09/20 18:23 18:23 18:23 RBC Hgb Hct MCH 26 L Lymph % (Auto) 13.2 L Lymph # (Auto) 1.0 L Seg Neutrophils % 80.5 H D-Dimer 896.32 H POC ABG pCO2 POC ABG pO2 ABG Hemoglobin ABG Sodium ABG Potassium Sodium 134 L Potassium 3.1 L Chloride Carbon Dioxide 17 L BUN 5 L Creatinine Calcium Alkaline Phosphatase 180 H Lactate Dehydrogenase C-Reactive Protein Albumin 3.1 L Arterial Blood Ionized Calcium Urine WBC (Auto) Coronavirus (PCR) 04/09/20 04/09/20 04/09/20 18:23 20:56 20:56 RBC Hgb Hct MCH Lymph % (Auto) Lymph # (Auto) Seg Neutrophils % D-Dimer 792.89 H POC ABG pCO2 POC ABG pO2 ABG Hemoglobin ABG Sodium ABG Potassium Sodium Potassium Chloride Carbon Dioxide BUN Creatinine Calcium Alkaline Phosphatase Lactate Dehydrogenase 244 H 224 H C-Reactive Protein 5.30 H 5.00 H Albumin Arterial Blood Ionized Calcium Urine WBC (Auto) Coronavirus (PCR) 04/10/20 04/10/20 04/11/20 06:45 15:16 11:08 RBC Hgb 9.9 L Hct MCH 27 L Lymph % (Auto) 12.4 L Lymph # (Auto) 1.0 L Seg Neutrophils % 80.7 H D-Dimer POC ABG pCO2 25.8 L POC ABG pO2 72.1 L ABG Hemoglobin 9.7 L ABG Sodium 133.3 L ABG Potassium 2.4 L Sodium Potassium Chloride Carbon Dioxide BUN Creatinine Calcium Alkaline Phosphatase Lactate Dehydrogenase C-Reactive Protein Albumin Arterial Blood Ionized Calcium 4.5 L Urine WBC (Auto) Coronavirus (PCR) Positive A 04/11/20 04/11/20 04/11/20 11:08 11:08 Unknown RBC Hgb Hct MCH Lymph % (Auto) Lymph # (Auto) Seg Neutrophils % D-Dimer 413.22 H POC ABG pCO2 POC ABG pO2 ABG Hemoglobin ABG Sodium ABG Potassium Sodium Potassium Chloride 108.1 H Carbon Dioxide 16 L BUN 4 L Creatinine 0.5 L Calcium Alkaline Phosphatase 178 H Lactate Dehydrogenase 256 H C-Reactive Protein 4.40 H Albumin 2.7 L Arterial Blood Ionized Calcium Urine WBC (Auto) 8.0 H Coronavirus (PCR) 04/12/20 04/12/20 04/12/20 06:56 06:56 13:44 RBC 3.56 L Hgb 9.2 L Hct 28.6 L MCH 26 L Lymph % (Auto) Lymph # (Auto) Seg Neutrophils % D-Dimer 555.67 H POC ABG pCO2 POC ABG pO2 ABG Hemoglobin ABG Sodium ABG Potassium Sodium Potassium Chloride 108.7 H Carbon Dioxide 18 L BUN 5 L Creatinine 0.5 L Calcium 8.2 L Alkaline Phosphatase Lactate Dehydrogenase C-Reactive Protein Albumin Arterial Blood Ionized Calcium Urine WBC (Auto) Coronavirus (PCR) 04/12/20 13:44 RBC Hgb Hct MCH Lymph % (Auto) Lymph # (Auto) Seg Neutrophils % D-Dimer POC ABG pCO2 POC ABG pO2 ABG Hemoglobin ABG Sodium ABG Potassium Sodium Potassium Chloride Carbon Dioxide BUN Creatinine Calcium Alkaline Phosphatase Lactate Dehydrogenase 263 H C-Reactive Protein 1.60 H Albumin Arterial Blood Ionized Calcium Urine WBC (Auto) Coronavirus (PCR)
[2020-04-14] MEDS: cefTRIAXone/NS 2 GM/100 ML 2 GM/100 ML BAG IV SCH (20:00)
[2020-04-14] MEDS: REMDESIVIR 100 MG in SODIUM CHLORIDE 0.9% 250ML 250 ML IV SCH (21:00)
[2020-04-15] MEDS: LACTATED RINGERS 1,000 ML IV SCH ×2 (00:47→06:53)
[2020-04-15] MEDS: BUDESONIDE 0.5 MG/2 ML NEBU IH SCH ×2 (06:54→11:22)
[2020-04-15] MEDS: ARFORMOTEROL 15 MCG/2 ML NEBU IH SCH ×2 (06:54→11:22)
[2020-04-15 07:55] VITALS: BP 107/58
--- NOTE | 2020-04-15 08:27 | Progress Note ---
Assessment and Plan A: IUP at 35w0d COVID 19 bilateral pneumonaia, s/p Rocephin, Azithromycin, Dexamethasone, and 5 days of Remdesivir. Ambulating oxygen saturation after 6 min is 96% on room air Pulmonology and Hospitalists following and appreciated Asthma GBS unknown P: Continue supportive care Discharge home today with follow up in office after 04/24/20 and a negative COVID test Subjective - Subjective Date of service: 04/15/20 Principal diagnosis: COVID-19, Bilateral Pneumonia, IUP at 35w0d Interval history: Pt feels well this morning. All outplacement consultant notes appreciated. Pt denies obstetric complaints. All outplacement consultant notes reviewed and appreciated. Pt has completed Rocephin, Azithromycin, Dexamethasone and Remdesivir. Patient reports: movement normal, other (Pt reports feeling better and she desires discharge. She notes good movement and no obstetric complaints. Senior Java Programmer Analyst notes reviewed and appreciated. ), no new complaints, no loss of fluid, no vaginal bleeding Objective - Vital Signs Vital Signs: Vital Signs - 12hr 04/14/20 04/14/20 04/14/20 20:25 20:26 20:31 Temperature Pulse Rate 90 97 H 94 H Respiratory Rate Blood Pressure Blood Pressure [Right] O2 Sat by Pulse 94 96 96 Oximetry 04/14/20 04/14/20 04/14/20 20:36 20:40 20:41 Temperature Pulse Rate 93 H 93 H 89 Respiratory Rate Blood Pressure Blood Pressure [Right] O2 Sat by Pulse 96 94 97 Oximetry 04/14/20 04/14/20 04/14/20 20:46 20:51 20:56 Temperature Pulse Rate 91 H 89 98 H Respiratory Rate Blood Pressure Blood Pressure [Right] O2 Sat by Pulse 97 96 97 Oximetry 04/14/20 04/14/20 04/14/20 21:01 21:04 21:06 Temperature Pulse Rate 100 H 101 H 95 H Respiratory Rate Blood Pressure Blood Pressure [Right] O2 Sat by Pulse 97 94 96 Oximetry 04/14/20 04/14/20 04/14/20 21:11 21:16 21:21 Temperature Pulse Rate 92 H 89 86 Respiratory Rate Blood Pressure Blood Pressure [Right] O2 Sat by Pulse 96 95 96 Oximetry 04/14/20 04/14/20 04/14/20 21:26 21:31 21:36 Temperature Pulse Rate 87 87 91 H Respiratory Rate Blood Pressure Blood Pressure [Right] O2 Sat by Pulse 97 97 97 Oximetry 04/14/20 04/14/20 04/14/20 21:41 21:46 21:51 Temperature Pulse Rate 89 102 H 110 H Respiratory Rate Blood Pressure Blood Pressure [Right] O2 Sat by Pulse 97 97 96 Oximetry 04/14/20 04/14/20 04/14/20 21:53 21:56 22:01 Temperature Pulse Rate 88 84 91 H Respiratory Rate Blood Pressure Blood Pressure [Right] O2 Sat by Pulse 94 97 98 Oximetry 04/14/20 04/14/20 04/14/20 22:06 22:08 22:11 Temperature Pulse Rate 86 96 H 85 Respiratory Rate Blood Pressure Blood Pressure [Right] O2 Sat by Pulse 97 93 97 Oximetry 04/14/20 04/14/20 04/14/20 22:16 22:21 22:26 Temperature Pulse Rate 84 89 94 H Respiratory Rate Blood Pressure Blood Pressure [Right] O2 Sat by Pulse 98 98 97 Oximetry 04/14/20 04/14/20 04/14/20 22:28 22:31 22:36 Temperature Pulse Rate 88 87 90 Respiratory Rate Blood Pressure 118/66 Blood Pressure [Right] O2 Sat by Pulse 94 97 Oximetry 04/14/20 04/14/20 04/14/20 22:41 22:46 22:51 Temperature Pulse Rate 87 77 91 H Respiratory Rate Blood Pressure Blood Pressure [Right] O2 Sat by Pulse 97 97 98 Oximetry 04/14/20 04/14/20 04/14/20 22:56 23:01 23:06 Temperature Pulse Rate 91 H 90 82 Respiratory Rate Blood Pressure Blood Pressure [Right] O2 Sat by Pulse 96 98 95 Oximetry 04/14/20 04/14/20 04/14/20 23:11 23:16 23:21 Temperature Pulse Rate 91 H 96 H 100 H Respiratory Rate Blood Pressure Blood Pressure [Right] O2 Sat by Pulse 98 96 96 Oximetry 04/14/20 04/14/20 04/14/20 23:26 23:28 23:31 Temperature Pulse Rate 108 H 106 H 85 Respiratory Rate Blood Pressure 109/60 Blood Pressure [Right] O2 Sat by Pulse 96 97 Oximetry 04/14/20 04/14/20 04/14/20 23:36 23:41 23:46 Temperature Pulse Rate 103 H 106 H 87 Respiratory Rate Blood Pressure Blood Pressure [Right] O2 Sat by Pulse 97 96 97 Oximetry 04/14/20 04/14/20 04/15/20 23:54 23:59 00:04 Temperature Pulse Rate 113 H 89 103 H Respiratory Rate Blood Pressure Blood Pressure [Right] O2 Sat by Pulse 97 98 99 Oximetry 04/15/20 04/15/20 04/15/20 00:09 00:13 00:14 Temperature Pulse Rate 99 H 89 92 H Respiratory Rate Blood Pressure Blood Pressure [Right] O2 Sat by Pulse 98 86 99 Oximetry 04/15/20 04/15/20 04/15/20 00:19 00:24 00:29 Temperature Pulse Rate 76 94 H 85 Respiratory Rate Blood Pressure Blood Pressure [Right] O2 Sat by Pulse 99 99 97 Oximetry 04/15/20 04/15/20 04/15/20 00:30 00:34 00:39 Temperature 98.4 F Pulse Rate 88 83 78 Respiratory 20 Rate Blood Pressure Blood Pressure 109/67 [Right] O2 Sat by Pulse 97 97 98 Oximetry 04/15/20 04/15/20 04/15/20 00:44 00:49 00:54 Temperature Pulse Rate 82 87 93 H Respiratory Rate Blood Pressure Blood Pressure [Right] O2 Sat by Pulse 98 97 95 Oximetry 04/15/20 04/15/20 04/15/20 00:59 01:04 01:09 Temperature Pulse Rate 83 83 79 Respiratory Rate Blood Pressure Blood Pressure [Right] O2 Sat by Pulse 98 98 97 Oximetry 04/15/20 04/15/20 04/15/20 01:14 01:19 01:24 Temperature Pulse Rate 98 H 79 81 Respiratory Rate Blood Pressure Blood Pressure [Right] O2 Sat by Pulse 95 99 98 Oximetry 04/15/20 04/15/20 04/15/20 01:28 01:29 01:34 Temperature Pulse Rate 88 92 H 85 Respiratory Rate Blood Pressure 109/67 Blood Pressure [Right] O2 Sat by Pulse 97 94 Oximetry 04/15/20 04/15/20 04/15/20 01:39 01:44 01:49 Temperature Pulse Rate 87 87 78 Respiratory Rate Blood Pressure Blood Pressure [Right] O2 Sat by Pulse 97 94 96 Oximetry 04/15/20 04/15/20 04/15/20 01:54 01:59 02:04 Temperature Pulse Rate 105 H 84 101 H Respiratory Rate Blood Pressure Blood Pressure [Right] O2 Sat by Pulse 95 95 94 Oximetry 04/15/20 04/15/20 04/15/20 02:09 02:14 02:19 Temperature Pulse Rate 106 H 85 82 Respiratory Rate Blood Pressure Blood Pressure [Right] O2 Sat by Pulse 95 94 93 Oximetry 04/15/20 04/15/20 04/15/20 02:24 02:29 02:34 Temperature Pulse Rate 80 79 78 Respiratory Rate Blood Pressure Blood Pressure [Right] O2 Sat by Pulse 96 96 97 Oximetry 04/15/20 04/15/20 04/15/20 02:39 02:44 02:49 Temperature Pulse Rate 80 81 83 Respiratory Rate Blood Pressure Blood Pressure [Right] O2 Sat by Pulse 97 96 96 Oximetry 04/15/20 04/15/20 04/15/20 02:54 02:59 03:04 Temperature Pulse Rate 80 84 82 Respiratory Rate Blood Pressure Blood Pressure [Right] O2 Sat by Pulse 96 96 96 Oximetry 04/15/20 04/15/20 04/15/20 03:09 03:14 03:19 Temperature Pulse Rate 80 90 81 Respiratory Rate Blood Pressure Blood Pressure [Right] O2 Sat by Pulse 96 96 96 Oximetry 04/15/20 04/15/20 04/15/20 03:24 03:29 03:34 Temperature Pulse Rate 79 89 78 Respiratory Rate Blood Pressure Blood Pressure [Right] O2 Sat by Pulse 96 96 95 Oximetry 04/15/20 04/15/20 04/15/20 03:39 03:44 03:49 Temperature Pulse Rate 105 H 82 83 Respiratory Rate Blood Pressure Blood Pressure [Right] O2 Sat by Pulse 96 97 96 Oximetry 04/15/20 04/15/20 04/15/20 03:54 03:59 04:04 Temperature Pulse Rate 79 80 75 Respiratory Rate Blood Pressure Blood Pressure [Right] O2 Sat by Pulse 96 96 96 Oximetry 04/15/20 04/15/20 04/15/20 04:09 04:14 04:19 Temperature Pulse Rate 79 80 77 Respiratory Rate Blood Pressure Blood Pressure [Right] O2 Sat by Pulse 97 97 97 Oximetry 04/15/20 04/15/20 04/15/20 04:24 04:29 04:30 Temperature 97.9 F Pulse Rate 90 78 80 Respiratory 18 Rate Blood Pressure Blood Pressure 99/62 [Right] O2 Sat by Pulse 97 97 96 Oximetry 04/15/20 04/15/20 04/15/20 04:34 04:39 04:44 Temperature Pulse Rate 80 79 92 H Respiratory Rate Blood Pressure Blood Pressure [Right] O2 Sat by Pulse 96 96 97 Oximetry 04/15/20 04/15/20 04/15/20 04:49 04:54 04:59 Temperature Pulse Rate 77 83 79 Respiratory Rate Blood Pressure Blood Pressure [Right] O2 Sat by Pulse 94 95 97 Oximetry 04/15/20 04/15/20 04/15/20 05:04 05:09 05:14 Temperature Pulse Rate 78 74 72 Respiratory Rate Blood Pressure Blood Pressure [Right] O2 Sat by Pulse 95 94 95 Oximetry 04/15/20 04/15/20 04/15/20 05:19 05:24 05:29 Temperature Pulse Rate 78 78 75 Respiratory Rate Blood Pressure Blood Pressure [Right] O2 Sat by Pulse 96 96 97 Oximetry 04/15/20 04/15/20 04/15/20 05:34 05:39 05:44 Temperature Pulse Rate 76 77 72 Respiratory Rate Blood Pressure Blood Pressure [Right] O2 Sat by Pulse 96 95 96 Oximetry 04/15/20 04/15/20 04/15/20 05:49 05:54 05:59 Temperature Pulse Rate 77 99 H 75 Respiratory Rate Blood Pressure Blood Pressure [Right] O2 Sat by Pulse 96 96 94 Oximetry 04/15/20 04/15/20 04/15/20 06:04 06:09 06:14 Temperature Pulse Rate 79 74 78 Respiratory Rate Blood Pressure Blood Pressure [Right] O2 Sat by Pulse 94 94 94 Oximetry 04/15/20 04/15/20 04/15/20 06:19 06:24 06:29 Temperature Pulse Rate 79 83 87 Respiratory Rate Blood Pressure Blood Pressure [Right] O2 Sat by Pulse 95 95 96 Oximetry 04/15/20 04/15/20 04/15/20 06:34 06:39 06:44 Temperature Pulse Rate 85 79 77 Respiratory Rate Blood Pressure Blood Pressure [Right] O2 Sat by Pulse 96 95 96 Oximetry 04/15/20 04/15/20 04/15/20 06:49 06:54 06:59 Temperature Pulse Rate 80 88 75 Respiratory Rate Blood Pressure Blood Pressure [Right] O2 Sat by Pulse 95 95 93 Oximetry 04/15/20 04/15/20 04/15/20 07:04 07:09 07:14 Temperature Pulse Rate 76 80 81 Respiratory Rate Blood Pressure Blood Pressure [Right] O2 Sat by Pulse 94 94 94 Oximetry 04/15/20 04/15/20 04/15/20 07:19 07:24 07:29 Temperature Pulse Rate 79 71 83 Respiratory Rate Blood Pressure Blood Pressure [Right] O2 Sat by Pulse 94 95 94 Oximetry 04/15/20 04/15/20 04/15/20 07:34 07:39 07:44 Temperature Pulse Rate 84 80 80 Respiratory Rate Blood Pressure Blood Pressure [Right] O2 Sat by Pulse 94 94 94 Oximetry 04/15/20 04/15/20 04/15/20 07:49 07:54 07:59 Temperature Pulse Rate 86 83 95 H Respiratory Rate Blood Pressure 107/58 Blood Pressure [Right] O2 Sat by Pulse 94 94 94 Oximetry 04/15/20 04/15/20 04/15/20 08:15 08:18 08:20 Temperature Pulse Rate 104 H 114 H 86 Respiratory Rate Blood Pressure Blood Pressure [Right] O2 Sat by Pulse 96 89 97 Oximetry - Exam Breasts: deferred Abdomen: Present: soft (obese, non-tender ) Uterus: Present: normal (obstetric ) FHR: auscultation normal Uterine Contraction Monitor Mode: External Uterine Tone Measurement Phase: Resting - Labs Labs: Abnormal Labs 04/09/20 04/09/20 04/09/20 18:23 18:23 18:23 RBC Hgb Hct MCH 26 L Lymph % (Auto) 13.2 L Lymph # (Auto) 1.0 L Seg Neutrophils % 80.5 H D-Dimer 896.32 H POC ABG pCO2 POC ABG pO2 ABG Hemoglobin ABG Sodium ABG Potassium Sodium 134 L Potassium 3.1 L Chloride Carbon Dioxide 17 L BUN 5 L Creatinine Calcium Alkaline Phosphatase 180 H Lactate Dehydrogenase C-Reactive Protein Albumin 3.1 L Arterial Blood Ionized Calcium Urine WBC (Auto) Coronavirus (PCR) 04/09/20 04/09/20 04/09/20 18:23 20:56 20:56 RBC Hgb Hct MCH Lymph % (Auto) Lymph # (Auto) Seg Neutrophils % D-Dimer 792.89 H POC ABG pCO2 POC ABG pO2 ABG Hemoglobin ABG Sodium ABG Potassium Sodium Potassium Chloride Carbon Dioxide BUN Creatinine Calcium Alkaline Phosphatase Lactate Dehydrogenase 244 H 224 H C-Reactive Protein 5.30 H 5.00 H Albumin Arterial Blood Ionized Calcium Urine WBC (Auto) Coronavirus (PCR) 04/10/20 04/10/20 04/11/20 06:45 15:16 11:08 RBC Hgb 9.9 L Hct MCH 27 L Lymph % (Auto) 12.4 L Lymph # (Auto) 1.0 L Seg Neutrophils % 80.7 H D-Dimer POC ABG pCO2 25.8 L POC ABG pO2 72.1 L ABG Hemoglobin 9.7 L ABG Sodium 133.3 L ABG Potassium 2.4 L Sodium Potassium Chloride Carbon Dioxide BUN Creatinine Calcium Alkaline Phosphatase Lactate Dehydrogenase C-Reactive Protein Albumin Arterial Blood Ionized Calcium 4.5 L Urine WBC (Auto) Coronavirus (PCR) Positive A 04/11/20 04/11/20 04/11/20 11:08 11:08 Unknown RBC Hgb Hct MCH Lymph % (Auto) Lymph # (Auto) Seg Neutrophils % D-Dimer 413.22 H POC ABG pCO2 POC ABG pO2 ABG Hemoglobin ABG Sodium ABG Potassium Sodium Potassium Chloride 108.1 H Carbon Dioxide 16 L BUN 4 L Creatinine 0.5 L Calcium Alkaline Phosphatase 178 H Lactate Dehydrogenase 256 H C-Reactive Protein 4.40 H Albumin 2.7 L Arterial Blood Ionized Calcium Urine WBC (Auto) 8.0 H Coronavirus (PCR) 04/12/20 04/12/20 04/12/20 06:56 06:56 13:44 RBC 3.56 L Hgb 9.2 L Hct 28.6 L MCH 26 L Lymph % (Auto) Lymph # (Auto) Seg Neutrophils % D-Dimer 555.67 H POC ABG pCO2 POC ABG pO2 ABG Hemoglobin ABG Sodium ABG Potassium Sodium Potassium Chloride 108.7 H Carbon Dioxide 18 L BUN 5 L Creatinine 0.5 L Calcium 8.2 L Alkaline Phosphatase Lactate Dehydrogenase C-Reactive Protein Albumin Arterial Blood Ionized Calcium Urine WBC (Auto) Coronavirus (PCR) 04/12/20 13:44 RBC Hgb Hct MCH Lymph % (Auto) Lymph # (Auto) Seg Neutrophils % D-Dimer POC ABG pCO2 POC ABG pO2 ABG Hemoglobin ABG Sodium ABG Potassium Sodium Potassium Chloride Carbon Dioxide BUN Creatinine Calcium Alkaline Phosphatase Lactate Dehydrogenase 263 H C-Reactive Protein 1.60 H Albumin Arterial Blood Ionized Calcium Urine WBC (Auto) Coronavirus (PCR)
--- NOTE | 2020-04-15 08:34 | Discharge Summary ---
Providers - Providers Date of Admission: 04/09/20 20:36 Date of discharge: 04/15/20 Attending physician: ERIKA NULL 04/10/20 07:00 Consult to Physician [CONS] Routine Comment: Consulting Provider: VINNY BELLA Physician Instructions: Reason For Exam: IUP at 33 wks, suspected COVID-19 infection, dyspn 04/10/20 10:21 Consult to Physician [CONS] Routine Comment: Consulting Provider: CARLEEN LOUISE Physician Instructions: Reason For Exam: respiratory distress Primary care physician: DRUM REEL CUTTER Hospitalization Reason for admission: other (COVID-19 pneumonia ) Discharge diagnosis: other (IUP at 35 wks, COVID 19 pneumonia, Asthma ) Hospital course: Pt was admitted with dyspnea, body aches, malaise and anosmia and was subsequently diagnosed with COVID-19 bilateral pneumonia. She received supportive care including oxygen by high flow nasal cannula, IV remdesivir, Azithromycin, Rocephin and 4 doses of Dexamethasone to improve respiratory distress and for lung maturity. Pulomonology, Hospitalist and Infectious Disease were consulted. By HD#6, she met discharge criteria. She will follow up in the office after April 24, 2020 with a negative COVID test. Condition at discharge: Stable Disposition: [id number] TO HOME OR SELFCARE - Discharge Diagnoses (1) COVID-19 Status: Acute (2) 35 weeks gestation of Status: Acute (3) Asthma affecting in third trimester Status: Acute (4) Bilateral pneumonia Status: Acute Qualifiers: Lung location: lower lobe of lung Plan - Discharge Medications Prescriptions: Albuterol Mdi (or & Nicu Only) [ProAir HFA Inhaler] 2 puff IH QID PRN #8.5 gram PRN Reason: Shortness Of Breath - Provider Discharge Summary Activity: routine Diet: routine Instructions: routine Additional instructions: [] Smoking cessation referral if applicable(refer to patient education folder for contact #) [] Refer to [facility] Booklet Call your doctor immediately for: * Fever > 100.5 * Heavy vaginal bleeding ( >1 pad per hour) * Severe persistent headache * Shortness of breath * Reddened, hot, painful area to leg or breast * Drainage or odor from incision. * Keep incision clean and dry at all times and follow doctor's instructions regarding bathing/showering - Follow up plan Follow up: PRIMARY CARE,MD [Primary Care Provider] - 7 Days ALLIE GARCIA, COTTON DISPATCHER [Advanced Practice Nurse] - 04/26/20 (Please schedule a f ollow up appt after 04/24/21 and a negative COVID test )
--- NOTE | 2020-04-15 08:46 | Progress Note ---
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 We been consulted to assist in management as she is noted to be tachypneic requiring 7 L of oxygen. On arrival the patient reports shortness of breath worse with exertion. She is 3 para 10 and does not recall having this severe shortness of breath during her other pregnancies. During our conversation she is noted to have 98% saturation while off the oxygen as she states that the high flow is uncomfortable to put in. Her spouse was in the room states that she has not been able to keep any food down that she does not like the taste of food she denies any loss of sensation of taste or smell at this time. She was not clear if she has nasal congestion but states that the force of the oxygen was more of a problem. She denies any fever nausea vomiting or diarrhea except as is associated with her normal . Chest x-ray concerning for bilateral infiltrates in the bases 04/11: Continue supportive care wean oxygen as tolerated. Follow results of the COVID-19. Covid 19 antibodies are negative at this time. 04/13: Patient was seen by colleague yesterday, today no new complaints. 04/14: Patient seen and examined, down to room air. No new complaints and ambula tory. 04/15: CLINICALLY [place]BALE FOR DISCHARGE, PER NURSING STAFF AMBUALTORY OXYGEN >92%, Follow further recommendations per ID and Primary. Acute shortness of breath without hypoxia COVID 19 Pneumonia Upper respiratory patient's infectious with bilateral infiltrates in the chest concerning for pneumonia Rule out sepsis Systemic inflammatory response syndrome without organ dysfunction at 34 weeks History Interval history: Patient seen and examined resting comfortably no new complaints at this time. Hospitalist Physical - Physical exam Narrative exam: VITAL SIGNS: Reviewed. GENERAL: The patient appears normally developed, visually observed with no noted increased work of breathing able to speak complete sentences. She reports feeling better compared to yesterday and slept all night all other exams deferred at this time due to global pandemic and patient is a PUI. And an effort to conserve PPE vital signs as documented. - Constitutional Vitals: Temp Pulse Resp BP Pulse Ox 97.9 F 80 18 107/58 97 04/15/20 04:30 04/15/20 08:40 04/15/20 04:30 04/15/20 07:54 04/15/20 08:40 General appearance: Present: no acute distress Results - Labs CBC & Chem 7: 04/12/20 06:56 12 06:56 Labs: Laboratory Last Values WBC 7.7 K/mm3 (4.5-11.0) 04/12/20 06:56 RBC 3.56 M/mm3 (3.65-5.03) L 04/12/20 06:56 Hgb 9.2 gm/dl (10.1-14.3) L 04/12/20 06:56 Hct 28.6 % (30.3-42.9) L 04/12/20 06:56 MCV 80 fl (79-97) 04/12/20 06:56 MCH 26 pg (28-32) L 04/12/20 06:56 MCHC 32 % (30-34) 04/12/20 06:56 RDW 15.0 % (13.2-15.2) 04/12/20 06:56 Plt Count 294 K/mm3 (140-440) 04/12/20 06:56 Lymph % (Auto) 12.4 % (13.4-35.0) L 04/11/20 11:08 [place] % (Auto) 6.8 % (0.0-7.3) 04/11/20 11:08 Eos % (Auto) 0.0 % (0.0-4.3) 04/11/20 11:08 Baso % (Auto) 0.1 % (0.0-1.8) 04/11/20 11:08 Lymph # (Auto) 1.0 K/mm3 (1.2-5.4) L 04/11/20 11:08 [place] # (Auto) 0.6 K/mm3 (0.0-0.8) 04/11/20 11:08 Eos # (Auto) 0.0 K/mm3 (0.0-0.4) 04/11/20 11:08 Baso # (Auto) 0.0 K/mm3 (0.0-0.1) 04/11/20 11:08 Seg Neutrophils % 80.7 % (40.0-70.0) H 04/11/20 11:08 Seg Neutrophils # 6.6 K/mm3 (1.8-7.7) 04/11/20 11:08 D-Dimer 555.67 ng/mlDDU (0-234) H 04/12/20 13:44 ABG pH 7.38 (7.320-7.450) 04/10/20 06:45 POC ABG pCO2 25.8 mmHg (32.0-48.0) L 04/10/20 06:45 POC ABG pO2 72.1 mmHg (83-108) L 04/10/20 06:45 POC ABG HCO3 15.0 04/10/20 06:45 POC ABG Base Excess -8.8 04/10/20 06:45 ABG Hemoglobin 9.7 (12.0-17.5) L 04/10/20 06:45 ABG Sodium 133.3 mmol/L (136.0-145.0) L 04/10/20 06:45 ABG Potassium 2.4 mmol/L (3.40-4.50) L 04/10/20 06:45 ABG Chloride 107.0 mmol/L (98-107) 04/10/20 06:45 ABG Glucose 71 mg/dL (65-95) 04/10/20 06:45 Sodium 139 mmol/L (137-145) 04/12/20 06:56 Potassium 3.6 mmol/L (3.6-5.0) 04/12/20 06:56 Chloride 108.7 mmol/L (98-107) H 04/12/20 06:56 Carbon Dioxide 18 mmol/L (22-30) L 04/12/20 06:56 Anion Gap 16 mmol/L 04/12/20 06:56 BUN 5 mg/dL (7-17) L 04/12/20 06:56 Creatinine 0.5 mg/dL (0.6-1.2) L 04/12/20 06:56 Estimated GFR > 60 ml/min 04/12/20 06:56 BUN/Creatinine Ratio 10 % 04/12/20 06:56 Glucose 93 mg/dL (65-100) 04/12/20 06:56 Lactic Acid 0.80 mmol/L (0.7-2.0) 04/09/20 20:56 Calcium 8.2 mg/dL (8.4-10.2) L 04/12/20 06:56 Ferritin 41.6 ng/mL (10.0-200.0) 04/12/20 13:44 Total Bilirubin 0.80 mg/dL (0.1-1.2) 04/11/20 11:08 AST 24 units/L (5-40) 04/11/20 11:08 ALT 17 units/L (7-56) 04/11/20 11:08 Alkaline Phosphatase 178 units/L (35-129) H 04/11/20 11:08 Lactate Dehydrogenase 263 units/L (91-180) H 04/12/20 13:44 C-Reactive Protein 1.60 mg/dL (0.00-1.30) H 04/12/20 13:44 Total Protein 6.3 g/dL (6.3-8.2) 04/11/20 11:08 Albumin 2.7 g/dL (3.9-5) L 04/11/20 11:08 Albumin/Globulin Ratio 0.8 % 04/11/20 11:08 Procalcitonin 0.46 ng/mL (<0.15) 04/09/20 18:23 Arterial Blood Glucose 71 mg/dL (65-95) 04/10/20 06:45 Arterial Blood Ionized Calcium 4.5 mg/dL (4.6-5.3) L 04/10/20 06:45 Urine Color Yellow (Yellow) 04/11/20 Unknown Urine Turbidity Clear (Clear) 04/11/20 Unknown Urine pH 6.0 (5.0-7.0) 04/11/20 Unknown Ur Specific [place] 1.015 (1.003-1.030) 04/11/20 Unknown Urine Protein <30 mg dl mg/dL (Negative) 04/11/20 Unknown Urine Glucose (UA) Negative mg/dL (Negative) 04/11/20 Unknown Urine Ketones 160 mg/dL (Negative) 04/11/20 Unknown Urine Blood Trace (Negative) 04/11/20 Unknown Urine Nitrite Negative (Negative) 04/11/20 Unknown Ur Reducing Substances Not Reportable 04/11/20 Unknown Urine Bilirubin Moderate (Negative) 04/11/20 Unknown Urine Ictotest Negative (Negative) 04/11/20 Unknown Urine Urobilinogen < 0.2 mg/dL (<2.0) 04/11/20 Unknown Ur Leukocyte Esterase Trace (Negative) 04/11/20 Unknown Urine WBC (Auto) 8.0 /HPF (0.0-6.0) H 04/11/20 Unknown Urine RBC (Auto) 9.0 /HPF (0.0-6.0) 04/11/20 Unknown U Epithel Cells (Auto) 5.0 /HPF (0-13.0) 04/11/20 Unknown Urine Bacteria (Auto) 1+ /HPF (Negative) 04/11/20 Unknown Urine Mucus Few /HPF 04/11/20 Unknown Urine Yeast (Budding) 1+ /HPF 04/11/20 Unknown Coronavirus (PCR) Positive (Negative) A 04/10/20 15:16 SARS-CoV-2 IgG Ab Nonreactive (NonReactive) 04/10/20 10:25 Blood Type A POSITIVE 04/11/20 20:40 Antibody Screen Negative 04/11/20 20:40 Microbiology: Microbiology 04/09/20 18:31 Peripheral/Venous Blood Culture - Final NO GROWTH AFTER 5 DAYS 04/09/20 18:23 Peripheral/Venous Blood Culture - Final NO GROWTH AFTER 5 DAYS 04/11/20 Unknown Urine,Clean Catch Urine Culture - Final NO GROWTH AFTER 48 HOURS Burt/IV: Voiding Method Toilet IV Catheter Type [Right Peripheral IV Antecubital] IV Catheter Type [Left Peripheral IV Antecubital] Active Medications - Current Medications Current Medications: Generic Name Dose Route Start Last Admin Trade Name Freq PRN Reason Stop Dose Admin Acetaminophen 650 mg 04/09/20 20:40 04/12/20 11:33 Tylenol PO 650 mg Q4H PRN Administration Pain MILD(1-3)/Fever >100.5/FINK Albuterol 2 puff 04/10/20 10:12 04/13/20 09:31 Proair IH 2 puff Q6HRT PRN Administration Shortness Of Breath Arformoterol Tartrate 15 mcg 04/10/20 09:30 04/15/20 06:54 Brovana Nebu IH Not Given Q12HRT MO Budesonide 0.5 mg 04/10/20 09:15 04/15/20 06:54 Pulmicort IH Not Given Q12HRT MO Docusate Sodium 100 mg 04/09/20 20:40 04/13/20 10:00 Colace PO 100 mg Q12H PRN Administration Constipation Guaifenesin 10 ml 04/09/20 20:40 04/14/20 22:26 Guaifenesin Dm Syrup PO 10 ml Q6H PRN Administration Cough Lactated Ringer's 1,000 mls @ 50 mls/hr 04/09/20 20:45 04/15/20 06:53 Lactated Ringers IV 75 mls/hr DIRECT MO Administration Multivitamins/Iron/Calcium 1 each 04/10/20 10:00 04/13/20 10:00 Vitamin PO Not Given [facility] Ondansetron HCl 4 mg 04/09/20 20:40 Zofran IV Q6H PRN Nausea And Vomiting Sodium Chloride 2 spray 04/09/20 20:40 [place] NS Q4H PRN Congestion
--- NOTE | 2020-04-15 08:53 | Progress Note ---
Assessment and Plan Cultures: Blood culture 04/09/2020 no growth today SARS CoV2 PCR positive SARS CoV2 IgG negative Assessment: 25 years old female with history of asthma, thalassemia carrier currently with 34 weeks of admitted on 04/09/2020 secondary to a week history of generalized malaise, body aches, cough and shortness of breath as well as 2 days of irregular contractions: #Severe sepsis: With tachycardia, tachypnea, hypoxia, improving, likely due to bilateral pneumonia. #Severe COVID pneumonia: Chest x-ray with bilateral multifocal pneumonia. Inflammatory markers elevated. Markers improving. Ferritin normal. Procalcitonin 0.4. ? Slightly up will consider a bacterial component. Venous ultrasound no DVT. #Acute hypoxemic respiratory failure: Initial O2 sat dropped to 89%. Oxygenation improving. Now on room air. #: 34 weeks. Recommendations: - Okay to discharge home patient passed 6-min walking O2 sat - Completed dexamethasone - Completed ceftriaxone and azithromycin - Continue remdesivir x 5 days All laboratory, cultures and imaging were reviewed. Charlee Ruth MD Infectious Diseases [facility] ([facility]) M [phone] O [phone] Subjective Date of service: 04/15/20 Principal diagnosis: COVID-19, Bilateral Pneumonia, IUP at 35w0d Interval history: Patient remains on room air, afebrile, 6-minute walking test sats 96%. Objective - Exam Narrative Exam: Physical Exam: reviewed ED and hospitalist notes, limited due to conservation of PPE and decrease risk of transmission. General appearance: limited due to conservation of PPE Eyes: limited due to conservation of PPE HENT: Atraumatic; limited due to conservation of PPE Lungs: limited due to conservation of PPE CV: limited due to conservation of PPE Abdomen: limited due to conservation of PPE Extremities: limited due to conservation of PPE Skin: limited due to conservation of PPE Psych: limited due to conservation of PPE Neuro: limited due to conservation of PPE - Constitutional Vitals: Vital Signs Temp Pulse Resp BP Pulse Ox 97.9 F 78 18 107/58 97 04/15/20 04:30 04/15/20 08:45 04/15/20 04:30 04/15/20 07:54 04/15/20 08:45 Temperature -Last 24 Hours Temperature 97.9 F Temperature 98.4 F Temperature 98.2 F Temperature 97.7 F - Labs CBC & Chem 7: 04/12/20 06:56 04/12/20 06:56
== END 2020-04-15 10:55 | disposition home or self-care (01) | DRG 781 ==
LOC: ED 17:53 → LD 20:36
PROVIDERS: ADMIT Obstetrics & Gynecology; ATTEND Obstetrics & Gynecology
PROC: XW033E5 Introduction of Remdesivir Anti-infective into Peripheral Vein, Percutaneous Approach, New Technology Group 5 (ICD-10-PCS; principal; 2020-04-10)
DX: O98.513 Other viral diseases complicating pregnancy, third trimester (principal); O99.513 Diseases of the respiratory system complicating pregnancy, third trimester; J18.9 Pneumonia, unspecified organism; R65.10 Systemic inflammatory response syndrome (SIRS) of non-infectious origin without acute organ dysfunction; O26.893 Other specified pregnancy related conditions, third trimester; U07.1 COVID-19; J45.909 Unspecified asthma, uncomplicated; Z3A.34 34 weeks gestation of pregnancy; Z83.3 Family history of diabetes mellitus
CPT/HCPCS: 36415; 36600; 71045; 76815; 76819; 80048; 80053; 81001; 82140; 82728; 82805; 82947; 83520; 83615; 84145; 85025; 85027; 85379; 86140; 86850; 86900; 86901; 87040; 87086; 93970; 94640; 94760; 96365; G0378; J0456; J0696; J1100; J7040; J7050; J7120; U0003

== ENCOUNTER 2021-03-08 21:58 | Emergency (ER) | payer MEDICAID ==
[2021-03-08] MEDS ORDERED: IBUPROFEN 600 MG TAB PO ONE (23:35)
--- NOTE | 2021-03-08 23:36 | Emergency Department Report ---
- General Chief Complaint: Upper Respiratory Infection Stated Complaint: HEADACHE SHAKING COLD SYMPTOMS Time Seen by Provider: 03/08/21 22:43 Source: patient Mode of arrival: Ambulatory Limitations: No Limitations - History of Present Illness Initial Comments: 26-year-old female presents to the ER today with complaints of URI/flulike symptoms. Patient states that symptoms started 2 days ago. She states that she has had rhinorrhea, nasal congestion, headaches and generalized body aches. She denies any cough, fever, chills, shortness of breath, GI or symptoms. She denies any apparent ill contacts or recent travel. She has not taken any of the COVID-19 test or a flu test. She has not gotten any of the COVID-19 vaccines or the flu vaccine. She denies any significant past medical history. MD Complaint: rhinorrhea, nasal congestion, other (Generalized body) -: days(s) (2) - Related Data Previous Rx's Medication Instructions Recorded Last Taken Type Albuterol Mdi (or & Nicu Only) 2 puff IH QID PRN #8.5 gram 04/15/20 05/19/20 09:00 Rx [ProAir HFA Inhaler] Ferrous Sulfate [Feosol 325 MG tab] 325 mg PO BID #60 tablet 05/27/20 Unknown Rx Cetirizine HCl/Pseudoephedrine 1 each PO DAILY #30 tab.er.12h 03/09/21 Unknown Rx [Zyrtec-D Tablet] Ibuprofen [Motrin 600 MG tab] 600 mg PO Q6H PRN #60 tablet 03/09/21 Unknown Rx Allergies Allergy/AdvReac Type Severity Reaction Status Date / Time No Known Allergies Allergy Verified 04/09/20 18:19 ED Review of Systems ROS: Stated complaint: HEADACHE SHAKING COLD SYMPTOMS Other details as noted in HPI Comment: All other systems reviewed and negative Constitutional: denies: chills, fever Eyes: denies: eye pain, eye discharge, vision change ENT: congestion, other (rhinorrhea ). denies: ear pain, throat pain Respiratory: denies: cough, shortness of breath, SOB with exertion, SOB at rest, wheezing Cardiovascular: denies: chest pain, palpitations Endocrine: no symptoms reported Gastrointestinal: denies: abdominal pain, nausea, vomiting, diarrhea, constipation, hematemesis, hematochezia Genitourinary: denies: urgency, dysuria, frequency, hematuria, discharge, abnormal menses Musculoskeletal: myalgia. denies: back pain, joint swelling, arthralgia Skin: denies: rash, lesions, change in color, change in hair/nails, pruritus Neurological: headache. denies: weakness, paresthesias, abnormal gait Psychiatric: denies: anxiety, depression, auditory hallucinations, visual hallucinations, homicidal thoughts, suicidal thoughts Hematological/Lymphatic: denies: easy bleeding, easy bruising, swollen glands ED Past Medical Hx - Past Medical History Previous Medical History?: Yes Hx Hypertension: No Hx Congestive Heart Failure: No Hx Diabetes: No Hx Deep Vein Thrombosis: No Hx Renal Disease: No Hx Sickle Cell Disease: No Hx Seizures: No Hx Asthma: Yes (unknown) Hx COPD: No Hx HIV: No - Surgical History Past Surgical History?: No - Social History Smoking Status: Never Smoker - Medications Home Medications: Home Medications Medication Instructions Recorded Confirmed Last Taken Type Albuterol Mdi (or & Nicu Only) 2 puff IH QID PRN #8.5 gram 04/15/20 05/26/20 05/19/20 09:00 Rx [ProAir HFA Inhaler] Ferrous Sulfate [Feosol 325 MG tab] 325 mg PO BID #60 tablet 05/27/20 Unknown Rx Cetirizine HCl/Pseudoephedrine 1 each PO DAILY #30 tab.er.12h 03/09/21 Unknown Rx [Zyrtec-D Tablet] Ibuprofen [Motrin 600 MG tab] 600 mg PO Q6H PRN #60 tablet 03/09/21 Unknown Rx ED Physical Exam - General Limitations: No Limitations General appearance: alert, in no apparent distress - Head Head exam: Present: atraumatic, normocephalic, normal inspection - Eye Eye exam: Present: normal appearance, PERRL, EOMI Pupils: Present: normal accommodation - ENT ENT exam: Present: normal exam, mucous membranes moist, TM's normal bilaterally - Neck Neck exam: Present: normal inspection, full ROM. Absent: meningismus - Respiratory Respiratory exam: Present: normal lung sounds bilaterally. Absent: respiratory distress, wheezes, rales, rhonchi, stridor - Cardiovascular Cardiovascular Exam: Present: regular rate, normal rhythm, normal heart sounds - GI/Abdominal GI/Abdominal exam: Present: soft. Absent: distended, tenderness, guarding, rebound - Neurological Exam Neurological exam: Present: alert, oriented X3, CN II-XII intact, normal gait - Psychiatric Psychiatric exam: Present: normal affect, normal mood - Skin Skin exam: Present: intact ED Course Vital Signs 03/08/21 03/09/21 22:31 02:01 Temperature 99.7 F H 98.8 F Pulse Rate 98 H 84 Respiratory 20 17 Rate Blood Pressure 123/65 Blood Pressure 117/61 [Left] O2 Sat by Pulse 99 98 Oximetry ED Medical Decision Making - Medical Decision Making The patient is now resting comfortably, is alert and in no distress. The patient has normal mental status and is neurologically intact. The patient appears well and there is no significant dehydration. There is no respiratory distress and no signs of systemic toxicity. Rapid flu negative today. Suspect viral syndrome. The history, exam, diagnostic testing and current condition do not demonstrate an infectious process such as meningitis, severe pneumonia, acute respiratory distress with hypoxia, sepsis or other serious viral/bacterial infection requiring further testing, treatment, consultation or admission at this time. The vital signs have been stable. Discussed suspected diagnosis with patient. I did encourage that she gets an outpatient COVID-19 test at this could be a possibility of was causing her symptoms as well. Patient expressed understanding and agreed with plan. The patient's condition is stable and appropriate for discharge. The patient will pursue further outpatient evaluation with the primary care physician. Critical care attestation.: If time is entered above; I have spent that time in minutes in the direct care of this critically ill patient, excluding procedure time. ED Disposition Clinical Impression: Viral illness Disposition: HOME / SELF CARE / HOMELESS Is pt being admited?: No Does the pt Need Aspirin: No Condition: Stable Instructions: Viral Illness, Adult Additional Instructions: I recommend that you drink lots of fluids. Recommend that you take a multivitamin. Take the ibuprofen as prescribed to help with any pain. You can alternate with Tylenol as well to help with any pain or fever. You can take [id number] Mucinex or Robitussin to help with your cough. Take the Zyrtec as prescribed. I do recommend she get an outpatient COVID-19 test as COVID-19 is in the differential of possibilities to the cause of her symptoms. Follow-up with your PCP. Return to the ER if your symptoms worsens or changes in any way. Prescriptions: Ibuprofen [Motrin 600 MG tab] 600 mg PO Q6H PRN #60 tablet PRN Reason: Pain Cetirizine HCl/Pseudoephedrine [Zyrtec-D Tablet] 1 each PO DAILY #30 tab.er.12h Referrals: JENNYFER RIZO MD [Staff Physician] - 3-5 Days Forms: Work/School Release Form(ED) Time of Disposition: 01:52
[2021-03-09 02:17] VITALS: BP 117/61
== END 2021-03-09 02:18 | disposition home or self-care (01) ==
LOC: ED 21:58
DX: B34.9 Viral infection, unspecified (principal); J45.909 Unspecified asthma, uncomplicated
CPT/HCPCS: 87400; 99283